=== PATIENT | female | born 1965 | race Caucasian/White ===

== ENCOUNTER 2021-08-02 10:25 | Outpatient (REF) | payer MEDICARE, MEDICAID, SELFPAY ==
[2021-08-02 12:17] LABS: MANUAL DIFF FLAG NO
[2021-08-02 12:26] LABS: Basophils Percent Auto 0.6 % (0-2); Eosinophils Percent Auto 0.6 % (0-4); Hematocrit 36.2 % (37-47); Hemoglobin 11.5 g/dl (12.0-16.0); Imm Gran Abs Auto 0.01 X10*3/uL (0.00-0.03); Imm Gran Pct Auto 0.2 % (0.0-0.4); Lymphocytes Absolute Auto 0.6 X10*3/uL (1.2-4.9); Mean Corpuscular HGB Conc 31.8 g/dl (31.0-35.0); Mean Corpuscular Hemoglobin 29.6 pg (27.0-33.0); Mean Corpuscular Volume 93.1 fL (80-98); Monocytes Absolute Auto 0.2 X10*3/uL (0.1-1.2); Monocytes Percent Auto 4.6 % (2-11); Neutrophils Absolute Auto 4.3 X10*3/uL (2.0-8.3); Platelet Count 183 X10*3/uL (160-400); Red Blood Count 3.89 X10*6/uL (4.20-5.50); White Blood Count 5.2 X10*3/uL (4.8-10.8)
[2021-08-02 12:33] LABS: D Dimer 202 NG/ML
[2021-08-02 12:38] LABS: Anion Gap 8 (12-20); Blood Urea Nitrogen 10 mg/dL (9-16); Calcium 9.2 mg/dL (8.4-10.2); Carbon Dioxide 29 mmol/L (22-29); Chloride 108 mmol/L (96-108); Estimated Glomerular Filt Rate > 60; Glucose Random 95 mg/dL (60-115); Potassium 4.4 mmol/L (3.3-5.1); Sodium 141 mmol/L (135-145)
[2021-08-02 13:30] LABS: Erythrocyte Sedimentation Rate 28 MM/HR (0-20)
[2021-08-05 11:31] LABS: SARS-COV-2 IgG Spike, Semi-Qnt 8.61 index (<1.00)
[2021-08-05 12:21] LABS: IgA 159 mg/dL (47-310); IgG 483 mg/dL (600-1640); IgM 156 mg/dL (50-300)
== END 2021-08-02 10:26 | disposition home or self-care (01) ==
LOC: HO.LAB 10:25
PROVIDERS: PCP Family Medicine; Visit Provider Hospitalist
DX: R06.00 Dyspnea, unspecified (principal); R06.02 Shortness of breath; M79.89 Other specified soft tissue disorders; M06.9 Rheumatoid arthritis, unspecified; J45.909 Unspecified asthma, uncomplicated; Z01.84 Encounter for antibody response examination
CPT/HCPCS: 36415; 80048; 82784; 82785; 85025; 85379; 85652; 86003; 86769; 99202

== ENCOUNTER 2021-08-16 10:49 | Outpatient (REF) | payer MEDICARE, MEDICAID, SELFPAY ==
--- NOTE | 2021-08-16 17:22 | PFT_ITS ---
INDICATION: Asthma. SPIROMETRY: The FEV1 to FVC 89% with an FEV1 of 2.87 L, which is 108% predicted, and an FVC of 3.23 L, which is 94% predicted. No significant response to bronchodilators noted. Maximum voluntary ventilation 134% predicted. LUNG VOLUMES: Total lung capacity 99% predicted with a diffusing capacity, DLCO 79% predicted. COMPARISONS: None. INTERPRETATION: No obstructive nor restrictive ventilatory defects identified. No significant response to bronchodilators noted. Normal maximum voluntary ventilation. Normal lung volumes. The patient does have a very mild diffusion impairment. Clinical correlation warranted. Stephon Rodriguez MD MR/MODL / [id number]
== END 2021-08-16 10:50 | disposition home or self-care (01) ==
LOC: HO.RESP 10:49
PROVIDERS: PCP Family Medicine; Visit Provider Hospitalist
DX: R06.00 Dyspnea, unspecified (principal); J45.909 Unspecified asthma, uncomplicated
CPT/HCPCS: 94060; 94727; 94729

== ENCOUNTER 2021-10-07 10:15 | Outpatient (REF) | payer MEDICARE, BC, MEDICAID, SELFPAY ==
--- NOTE | ~2021-10-07 | XR_ITS ---
EXAMINATION: XR CHEST CLINICAL INFORMATION: Dyspnea COMPARISON: 12/13/2015 TECHNIQUE: 2 views of the chest were obtained. FINDINGS: No significant abnormality is noted involving the heart, lungs, mediastinum, bony thorax or soft tissues. Surgical clips are noted in the gallbladder fossa. XR/XR chest 2V IMPRESSION: Unremarkable examination.
== END 2021-10-07 10:16 | disposition home or self-care (01) ==
LOC: HO.XRAY 10:15
PROVIDERS: PCP Family Medicine; Visit Provider Hospitalist
DX: J45.909 Unspecified asthma, uncomplicated (principal); M06.9 Rheumatoid arthritis, unspecified; M79.89 Other specified soft tissue disorders; R06.00 Dyspnea, unspecified; D80.1 Nonfamilial hypogammaglobulinemia; J01.90 Acute sinusitis, unspecified
CPT/HCPCS: 71046; 99212

== ENCOUNTER 2022-02-04 11:00 | Outpatient (REF) | payer MEDICARE, MEDICAID, SELFPAY ==
[2022-02-04 12:32] LABS: Anion Gap 9 (12-20); Blood Urea Nitrogen 9 mg/dL (9-16); Calcium 9.6 mg/dL (8.4-10.2); Carbon Dioxide 32 mmol/L (22-29); Chloride 106 mmol/L (96-108); Estimated Glomerular Filt Rate > 60; Glucose Random 96 mg/dL (60-115); Potassium 4.8 mmol/L (3.3-5.1); Sodium 142 mmol/L (135-145)
[2022-02-06 06:47] LABS: Immunoglobulin E 38 kU/L (<OR=114)
[2022-02-06 15:32] LABS: Immunoglobulin G Subclass 1 211 mg/dL (382-929); Immunoglobulin G Subclass 2 107 mg/dL (241-700); Immunoglobulin G Subclass 3 33 mg/dL (22-178); Immunoglobulin G Subclass 4 8.3 mg/dL (4-86); Immunoglobulin G Total 386 mg/dL (600-1640)
== END 2022-02-04 11:01 | disposition home or self-care (01) ==
LOC: HO.LAB 11:00
PROVIDERS: PCP Nurse Practitioner; Visit Provider Hospitalist
DX: D80.1 Nonfamilial hypogammaglobulinemia (principal)
CPT/HCPCS: 36415; 80048; 82784; 82785

== ENCOUNTER → 2022-02-05 10:52 | Outpatient (BNVA) | payer MEDICARE, MEDICAID, SELFPAY | PROVIDERS: PCP Nurse Practitioner; Visit Provider Hospitalist | DX: J45.40 Moderate persistent asthma, uncomplicated (principal); D80.1 Nonfamilial hypogammaglobulinemia; M06.9 Rheumatoid arthritis, unspecified; M79.89 Other specified soft tissue disorders; R06.00 Dyspnea, unspecified; U09.9 Post COVID-19 condition, unspecified | CPT/HCPCS: 99212 ==

== ENCOUNTER → 2022-05-27 13:46 | Outpatient (BNVA) | payer MEDICARE, MEDICAID, SELFPAY | PROVIDERS: PCP Nurse Practitioner; Visit Provider Hospitalist | DX: J45.40 Moderate persistent asthma, uncomplicated (principal); R06.00 Dyspnea, unspecified; U09.9 Post COVID-19 condition, unspecified; M79.89 Other specified soft tissue disorders; M06.9 Rheumatoid arthritis, unspecified; D80.1 Nonfamilial hypogammaglobulinemia | CPT/HCPCS: 99212 ==

== ENCOUNTER 2022-06-20 08:47 | Outpatient (REF) | payer MEDICARE, MEDICAID, SELFPAY | END 2022-06-20 08:48 | disposition home or self-care (01) | LOC: HO.MDS 08:47 | PROVIDERS: Visit Provider Hospitalist | DX: D80.1 Nonfamilial hypogammaglobulinemia (principal); E27.40 Unspecified adrenocortical insufficiency | CPT/HCPCS: 96365; 96366 ==

== ENCOUNTER 2022-07-18 08:51 | Outpatient (REF) | payer MEDICARE, MEDICAID, SELFPAY | END 2022-07-18 08:52 | disposition home or self-care (01) | LOC: HO.MDS 08:51 | PROVIDERS: Visit Provider Hospitalist | DX: D80.1 Nonfamilial hypogammaglobulinemia (principal) | CPT/HCPCS: 96365; 96366 ==

== ENCOUNTER 2022-08-15 08:58 | Outpatient (REF) | payer MEDICARE, MEDICAID, SELFPAY | END 2022-08-15 08:59 | disposition home or self-care (01) | LOC: HO.MDS 08:58 | PROVIDERS: Visit Provider Hospitalist | DX: D80.1 Nonfamilial hypogammaglobulinemia (principal) | CPT/HCPCS: 96365; 96366 ==

== ENCOUNTER 2022-09-12 08:55 | Outpatient (REF) | payer MEDICARE, MEDICAID, SELFPAY | END 2022-09-12 08:56 | disposition home or self-care (01) | LOC: HO.MDS 08:55 | PROVIDERS: Visit Provider Hospitalist | DX: D80.1 Nonfamilial hypogammaglobulinemia (principal) | CPT/HCPCS: 96365; 96366 ==

== ENCOUNTER 2022-09-23 14:29 | Outpatient (REF) | payer MEDICARE, MEDICAID, SELFPAY ==
--- NOTE | ~2022-09-23 | XR_ITS ---
EXAMINATION: XR CHEST CLINICAL INFORMATION: Nonfamilial hypogammaglobulinemia COMPARISON: Previous chest x-ray most recent September 2021 TECHNIQUE: 2 views of the chest were obtained. FINDINGS: The cardiac and mediastinal contours are stable. The lungs are clear. There is no pleural effusion or pneumothorax. There are degenerative changes of the thoracic spine and curvature to the right. XR/XR chest 2V IMPRESSION: No evidence for acute disease in the chest.
== END 2022-09-23 14:30 | disposition home or self-care (01) ==
LOC: HO.XRAY 14:29
PROVIDERS: PCP Nurse Practitioner; Visit Provider Hospitalist
DX: Z23 Encounter for immunization (principal); D80.1 Nonfamilial hypogammaglobulinemia
CPT/HCPCS: 71046; 90471; 90686; 99212

== ENCOUNTER 2022-10-10 09:13 | Outpatient (REF) | payer MEDICARE, MEDICAID, SELFPAY | END 2022-10-10 09:14 | disposition home or self-care (01) | LOC: HO.MDS 09:13 | PROVIDERS: Visit Provider Hospitalist | DX: D80.1 Nonfamilial hypogammaglobulinemia (principal) | CPT/HCPCS: 96365; 96366 ==

== ENCOUNTER 2022-11-11 08:58 | Outpatient (REF) | payer MEDICARE, MEDICAID, SELFPAY | END 2022-11-11 08:59 | disposition home or self-care (01) | LOC: HO.MDS 08:58 | PROVIDERS: Visit Provider Hospitalist | DX: D80.1 Nonfamilial hypogammaglobulinemia (principal) | CPT/HCPCS: 96365; 96366 ==

== ENCOUNTER 2022-11-25 14:09 | Outpatient (REF) | payer MEDICARE, MEDICAID, SELFPAY ==
--- NOTE | ~2022-11-25 | XR_ITS ---
EXAMINATION: XR BILATERAL FOOT, BILATERAL ANKLE, BILATERAL HAND AND WRIST CLINICAL INFORMATION: Rheumatoid arthritis. COMPARISON: None. TECHNIQUE: 3 views of each foot and 2 views of each ankle. 4 views of each hand and wrist. FINDINGS: LEFT FOOT: The visualized IP, MTP and intertarsal joint spaces are maintained normal. No visible acute fracture or dislocation seen. LEFT ANKLE: The ankle mortise and subtalar joints are normal. There is a moderate size retrocalcaneal enthesophyte. The soft tissues are normal. RIGHT ANKLE: The ankle mortise and subtalar joints are normal. No visible acute fracture, dislocation or subluxation seen. There is small retrocalcaneal enthesophyte. RIGHT FOOT: The IP and MTP joint spaces are normal. No bony erosive changes or loose bodies. There is small enthesophyte along the base of 4th metatarsal, likely chronic or old injury. LEFT HAND AND WRIST: The IP, MCP and interphalangeal joint spaces are normal. No periapical spurring or bony erosive changes seen. The soft tissues are normal. RIGHT HAND/WRIST: There is no visible acute fracture, dislocation or subluxation seen. No bony erosive changes. The soft tissues are normal. XR/XR foot RT min 3V IMPRESSION: Unremarkable bilateral ankle, bilateral foot, bilateral hand and wrist exam.
--- NOTE | ~2022-11-25 | XR_ITS ---
EXAMINATION: XR BILATERAL FOOT, BILATERAL ANKLE, BILATERAL HAND AND WRIST CLINICAL INFORMATION: Rheumatoid arthritis. COMPARISON: None. TECHNIQUE: 3 views of each foot and 2 views of each ankle. 4 views of each hand and wrist. FINDINGS: LEFT FOOT: The visualized IP, MTP and intertarsal joint spaces are maintained normal. No visible acute fracture or dislocation seen. LEFT ANKLE: The ankle mortise and subtalar joints are normal. There is a moderate size retrocalcaneal enthesophyte. The soft tissues are normal. RIGHT ANKLE: The ankle mortise and subtalar joints are normal. No visible acute fracture, dislocation or subluxation seen. There is small retrocalcaneal enthesophyte. RIGHT FOOT: The IP and MTP joint spaces are normal. No bony erosive changes or loose bodies. There is small enthesophyte along the base of 4th metatarsal, likely chronic or old injury. LEFT HAND AND WRIST: The IP, MCP and interphalangeal joint spaces are normal. No periapical spurring or bony erosive changes seen. The soft tissues are normal. RIGHT HAND/WRIST: There is no visible acute fracture, dislocation or subluxation seen. No bony erosive changes. The soft tissues are normal. XR/XR foot LT min 3V IMPRESSION: Unremarkable bilateral ankle, bilateral foot, bilateral hand and wrist exam.
--- NOTE | ~2022-11-25 | XR_ITS ---
EXAMINATION: XR BILATERAL FOOT, BILATERAL ANKLE, BILATERAL HAND AND WRIST CLINICAL INFORMATION: Rheumatoid arthritis. COMPARISON: None. TECHNIQUE: 3 views of each foot and 2 views of each ankle. 4 views of each hand and wrist. FINDINGS: LEFT FOOT: The visualized IP, MTP and intertarsal joint spaces are maintained normal. No visible acute fracture or dislocation seen. LEFT ANKLE: The ankle mortise and subtalar joints are normal. There is a moderate size retrocalcaneal enthesophyte. The soft tissues are normal. RIGHT ANKLE: The ankle mortise and subtalar joints are normal. No visible acute fracture, dislocation or subluxation seen. There is small retrocalcaneal enthesophyte. RIGHT FOOT: The IP and MTP joint spaces are normal. No bony erosive changes or loose bodies. There is small enthesophyte along the base of 4th metatarsal, likely chronic or old injury. LEFT HAND AND WRIST: The IP, MCP and interphalangeal joint spaces are normal. No periapical spurring or bony erosive changes seen. The soft tissues are normal. RIGHT HAND/WRIST: There is no visible acute fracture, dislocation or subluxation seen. No bony erosive changes. The soft tissues are normal. XR/XR hand wrist LT IMPRESSION: Unremarkable bilateral ankle, bilateral foot, bilateral hand and wrist exam.
--- NOTE | ~2022-11-25 | XR_ITS ---
EXAMINATION: XR BILATERAL FOOT, BILATERAL ANKLE, BILATERAL HAND AND WRIST CLINICAL INFORMATION: Rheumatoid arthritis. COMPARISON: None. TECHNIQUE: 3 views of each foot and 2 views of each ankle. 4 views of each hand and wrist. FINDINGS: LEFT FOOT: The visualized IP, MTP and intertarsal joint spaces are maintained normal. No visible acute fracture or dislocation seen. LEFT ANKLE: The ankle mortise and subtalar joints are normal. There is a moderate size retrocalcaneal enthesophyte. The soft tissues are normal. RIGHT ANKLE: The ankle mortise and subtalar joints are normal. No visible acute fracture, dislocation or subluxation seen. There is small retrocalcaneal enthesophyte. RIGHT FOOT: The IP and MTP joint spaces are normal. No bony erosive changes or loose bodies. There is small enthesophyte along the base of 4th metatarsal, likely chronic or old injury. LEFT HAND AND WRIST: The IP, MCP and interphalangeal joint spaces are normal. No periapical spurring or bony erosive changes seen. The soft tissues are normal. RIGHT HAND/WRIST: There is no visible acute fracture, dislocation or subluxation seen. No bony erosive changes. The soft tissues are normal. XR/XR hand wrist RT IMPRESSION: Unremarkable bilateral ankle, bilateral foot, bilateral hand and wrist exam.
--- NOTE | ~2022-11-25 | XR_ITS ---
EXAMINATION: XR BILATERAL FOOT, BILATERAL ANKLE, BILATERAL HAND AND WRIST CLINICAL INFORMATION: Rheumatoid arthritis. COMPARISON: None. TECHNIQUE: 3 views of each foot and 2 views of each ankle. 4 views of each hand and wrist. FINDINGS: LEFT FOOT: The visualized IP, MTP and intertarsal joint spaces are maintained normal. No visible acute fracture or dislocation seen. LEFT ANKLE: The ankle mortise and subtalar joints are normal. There is a moderate size retrocalcaneal enthesophyte. The soft tissues are normal. RIGHT ANKLE: The ankle mortise and subtalar joints are normal. No visible acute fracture, dislocation or subluxation seen. There is small retrocalcaneal enthesophyte. RIGHT FOOT: The IP and MTP joint spaces are normal. No bony erosive changes or loose bodies. There is small enthesophyte along the base of 4th metatarsal, likely chronic or old injury. LEFT HAND AND WRIST: The IP, MCP and interphalangeal joint spaces are normal. No periapical spurring or bony erosive changes seen. The soft tissues are normal. RIGHT HAND/WRIST: There is no visible acute fracture, dislocation or subluxation seen. No bony erosive changes. The soft tissues are normal. XR/XR ankle RT min 3V IMPRESSION: Unremarkable bilateral ankle, bilateral foot, bilateral hand and wrist exam.
--- NOTE | ~2022-11-25 | XR_ITS ---
EXAMINATION: XR BILATERAL FOOT, BILATERAL ANKLE, BILATERAL HAND AND WRIST CLINICAL INFORMATION: Rheumatoid arthritis. COMPARISON: None. TECHNIQUE: 3 views of each foot and 2 views of each ankle. 4 views of each hand and wrist. FINDINGS: LEFT FOOT: The visualized IP, MTP and intertarsal joint spaces are maintained normal. No visible acute fracture or dislocation seen. LEFT ANKLE: The ankle mortise and subtalar joints are normal. There is a moderate size retrocalcaneal enthesophyte. The soft tissues are normal. RIGHT ANKLE: The ankle mortise and subtalar joints are normal. No visible acute fracture, dislocation or subluxation seen. There is small retrocalcaneal enthesophyte. RIGHT FOOT: The IP and MTP joint spaces are normal. No bony erosive changes or loose bodies. There is small enthesophyte along the base of 4th metatarsal, likely chronic or old injury. LEFT HAND AND WRIST: The IP, MCP and interphalangeal joint spaces are normal. No periapical spurring or bony erosive changes seen. The soft tissues are normal. RIGHT HAND/WRIST: There is no visible acute fracture, dislocation or subluxation seen. No bony erosive changes. The soft tissues are normal. XR/XR ankle LT min 3V IMPRESSION: Unremarkable bilateral ankle, bilateral foot, bilateral hand and wrist exam.
[2022-11-25 15:43] LABS: MANUAL DIFF FLAG NO
[2022-11-25 15:59] LABS: Basophils Percent Auto 0.7 % (0-2); Eosinophils Percent Auto 0.3 % (0-4); Hemoglobin 12.3 g/dl (12.0-16.0); Imm Gran Abs Auto 0.02 X10*3/uL (0.00-0.03); Imm Gran Pct Auto 0.3 % (0.0-0.4); Lymphocytes Absolute Auto 0.7 X10*3/uL (1.2-4.9); Mean Corpuscular HGB Conc 32.4 g/dl (31.0-35.0); Mean Corpuscular Hemoglobin 29.2 pg (27.0-33.0); Mean Corpuscular Volume 90.3 fL (80.0-98.0); Mean Platelet Volume 9.5 fL (9.4-12.3); Monocytes Absolute Auto 0.3 X10*3/uL (0.1-1.2); Monocytes Percent Auto 4.7 % (2-11); Neutrophils Absolute Auto 4.9 x10*3/uL (2.0-8.3); Platelet Count 238 X10*3/uL (160-400); Red Blood Count 4.21 X10*6/uL (4.20-5.50); Red Cell Distribution Width 13.6 % (11.0-16.0)
[2022-11-25 16:25] LABS: Alanine Aminotransferase 32 U/L (0-31); Albumin Level 4.1 g/dL (3.5-5.0); Alkaline Phosphatase 55 U/L (39-117); Anion Gap 9 (12-20); Aspartate Amino Transferase 24 U/L (5-31); Bilirubin Total 0.5 mg/dL (0.0-1.0); Blood Urea Nitrogen 14 mg/dL (9-16); C Reactive Protein 0.58 mg/dL (< or = 0.50); Calcium 9.9 mg/dL (8.4-10.2); Carbon Dioxide 32 mmol/L (22-29); Chloride 104 mmol/L (96-108); Estimated Glomerular Filt Rate > 60; Glucose Random 95 mg/dL (60-115); Potassium 4.2 mmol/L (3.3-5.1); Sodium 141 mmol/L (135-145); Total Protein 7.1 g/dL (6.5-8.0)
[2022-11-25 16:39] LABS: Erythrocyte Sedimentation Rate 45 MM/HR (0-20)
[2022-11-26 05:15] LABS: HBS Num1 342.37 mIU/mL (0-7.99); HBc Num1 2.21 S/CO (0.00-0.79); Hepatitis A Antibody IgM 0.17 Index (0-0.79); Hepatitis B Surface Antigen Negative (Negative); ~HepC Num1 0.13 S/CO (0.00-0.79); ~Hepatitis A Antibody IgM Nonreactive (Nonreactive); ~Hepatitis B Surface Antibody REACTIVE (Nonreactive); ~Hepatitis C Antibody Nonreactive (Nonreactive)
[2022-11-26 05:57] LABS: HBc Num2 2.19 S/CO; Hepatitis B Core Antibody Reactive (Nonreactive)
[2022-11-27 13:33] LABS: TS Negative Control Passed; TS Panel A 0; TS Panel B 0; TS Positive Control Passed; TSpotTB Negative (Negative)
== END 2022-11-25 14:10 | disposition home or self-care (01) ==
LOC: HO.XRAY 14:09
PROVIDERS: PCP Nurse Practitioner; Visit Provider Student in an Organized Health Care Education/Training Program
DX: Z11.7 Encounter for testing for latent tuberculosis infection (principal); Z11.59 Encounter for screening for other viral diseases; M06.9 Rheumatoid arthritis, unspecified; G72.9 Myopathy, unspecified; M25.551 Pain in right hip; M25.552 Pain in left hip; E27.40 Unspecified adrenocortical insufficiency; Z72.89 Other problems related to lifestyle
CPT/HCPCS: 36415; 73110; 73130; 73610; 73630; 80053; 82550; 85025; 85652; 86140; 86481; 86704; 86706; 86709; 86803; 87340; 99202

== ENCOUNTER 2022-12-03 12:48 | Outpatient (REF) | payer MEDICARE, MEDICAID, SELFPAY ==
--- NOTE | ~2022-12-03 | MM_ITS ---
EXAMINATION: BONE DENSITOMETRY CLINICAL INDICATION: Long-term (current) use of systemic steroids. COMPARISON: Previous BD dated 12/01/2019 and baseline BD dated 09/03/2017. TECHNIQUE: Using a [employer] DXA System (software version: 13.1) manufactured by [employer], dual-energy x-ray absorptiometry was performed of the lumbar spine and left hip. The images are of good technical quality. Summary results are attached. FINDINGS: AP SPINE L1-L4: Current: BMD 1.000 g/cm2, Z-score -0.2, T-score -1.5, osteopenia, 4.0% decrease from previous, 0.8% decrease from baseline (<5% change is not significant). Prior: BMD 1.042 g/cm2. Baseline: BMD 1.008 g/cm2. LEFT FEMUR, NECK: Current: BMD 0.799 g/cm2, Z-score -0.4, T-score -1.7, osteopenia. Prior: BMD 0.777 g/cm2. Baseline: BMD 0.764 g/cm2. LEFT FEMUR, TOTAL: Current: BMD 0.786 g/cm2, Z-score -0.8, T-score -1.8, osteopenia, 3.2% decrease from previous, 10.9% decrease from baseline (<5% change is not significant). Prior: BMD 0.812 g/cm2. Baseline: BMD 0.882 g/cm2. IDENTIFIED RISK FACTORS: Rheumatoid arthritis. Chronic glucocorticoids. Menopause. HISTORY OF FRACTURE: None listed. MEDICATIONS: Calcium supplement and/or multivitamin. Vitamin D. MM/XR DEXA axial skeleton IMPRESSION: 1. DIAGNOSIS: Osteopenia based on the lowest T-score value of -1.8 in the femoral neck applying World Health Organization criteria. 2. 10-YEAR FRACTURE RISK PREDICTION, FRAX: Major osteoporotic fracture (clinical spine, forearm, hip or shoulder) 15.4%. Hip fracture 2.0%. 3. Treatment Recommendations: NOF guidelines recommend consideration for treatment in postmenopausal women and men age 50 and older presenting with the following: -A hip or vertebral (clinical or morphometric) fracture. -T-score less than or equal to -2.5 at the femoral neck or spine after appropriate evaluation to exclude secondary causes. -Low bone mass at the hip or spine and a 10-year fracture probability by FRAX of greater than or equal to 3% for hip fracture or greater than or equal to 20% for major osteoporotic fracture based on the [place] adapted WHO algorithm. 4. Other Recommendations: All treatment decisions require clinical judgment and consideration of individual patient factors, including patient preferences, comorbidities, previous drug use, risk factors not captured in the FRAX model (e.g. frailty, falls, vitamin D deficiency, increased bone turnover, interval significant decline in bone density) and possible under or overestimation of fracture risk by FRAX. Additional medical evaluation for secondary cause of low bone mineral density may be appropriate. FUTURE SCAN RECOMMENDATION: People with diagnosed cases of osteoporosis or at high risk for fracture should have regular bone mineral density tests. For patients eligible for Medicare, routine testing is allowed once every 2 years. The testing frequency can be increased to one year for patients who have rapidly progressing disease, those who are receiving or discontinuing medical therapy to restore bone mass, or have additional risk factors.
== END 2022-12-03 12:49 | disposition home or self-care (01) ==
LOC: HO.MAMMO 12:48
PROVIDERS: Visit Provider Student in an Organized Health Care Education/Training Program
DX: Z13.820 Encounter for screening for osteoporosis (principal); Z78.0 Asymptomatic menopausal state; Z79.52 Long term (current) use of systemic steroids
CPT/HCPCS: 77080

== ENCOUNTER 2022-12-08 09:01 | Outpatient (REF) | payer MEDICARE, MEDICAID, SELFPAY | END 2022-12-08 09:02 | disposition home or self-care (01) | LOC: HO.MDS 09:01 | PROVIDERS: Visit Provider Hospitalist | DX: D80.1 Nonfamilial hypogammaglobulinemia (principal) | CPT/HCPCS: 96365; 96366 ==

== ENCOUNTER 2023-01-02 15:00 | Outpatient (RCR) | payer MEDICARE, MEDICAID, SELFPAY ==
[2022-11-28 09:07] VITALS: BP 155/75; PULSE 73
--- NOTE | 2022-11-28 09:54 | MHC.PT.EP ---
[facility] [place] Office [place] Office [place] Office [address] [phone] F: [phone] F: [phone] F: [phone] F: [phone] Physical Therapy Plan of Care Date of Evaluation: Date of Surgery: NA Diagnosis: Pain in R hip Pain in L hip Assessment: Jenny is a 57 year old female who is referred to PT for pain in R hip and pain in L hip . She reports of having gradual onset of pain in B hips- L>R about 1 month back. She reports of having more pain in L hip compared to R. On PT examination she presented TTP over B GT, B glutes, B hip flexor and L SIJ, 5/10 pain with standing, walking and SL, decreased hip ROM and lumbar ROM, decreased B hip strength, altered and gait. She lives alone is independent with ADLS however has pain with them and takes frequent seated rest breaks. 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 She would benefit from skilled PT to address the aforementioned impairments and improve tolerance to functional activities. Frequency and Duration: The patient will be seen 2/week for 5 weeks Short Term Goals: 1. Pt will have 50% decrease in pain which will enable her to stand for 30 minutes without needing a break in 2 weeks. 2. Pt will be able to move her hip through all planes of motion without pain which will enable her to dress her lower body without pain in 3 weeks. 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 Pt will demonstrate an increase in muscle strength by 1 grade which will enable her to walk without pain in 5 weeks. 2. Pt will be independent with all HEPS for symptom management and maintenance following d/c in 5 weeks. Treatment Plan: Modalities to reduce pain, spasms and effusion. Manual therapy to restore motion and function. Therapeutic exercise to improve strength and flexibility. Neuromuscular re-education for posture and balance. Therapeutic activities to return to functional activities of daily living. Electronically signed by: Carrie Knight PT DPT Please sign and return to therapist. Thank you for your referral.
--- NOTE | 2023-01-02 15:16 | MHC.PT.DC ---
[facility] [place] Office [place] Office [place] Office [address] Avalos [address] [phone] F: [phone] F: [phone] F: [phone] F: [phone] Physical Therapy Discharge Report Diagnosis: Pain in R hip Pain in L hip Date of Surgery: NA Date of Evaluation: 11/28/22 Date of Discharge: 01/02/23 Treatments to Date: 9 Cancellations to Date: 0 No Shows to Date: Discharge Status: Achieved Goals Improved Function Independent with HEP Discharge Summary: Jenny has completed 9 PT visits and has made significant improvements. She has achieved all goals set for her. She is therefore being d/c from PT. Jenny was in agreement with the plan. Electronically signed by: Carrie Knight PT DPT Please sign and return to therapist. Thank you for your referral.
== END 2023-01-02 15:16 | disposition home or self-care (01) ==
LOC: HO.PT 15:00
PROVIDERS: Visit Provider Student in an Organized Health Care Education/Training Program
DX: M25.551 Pain in right hip (principal); M25.552 Pain in left hip
CPT/HCPCS: 97033; 97110; 97112; 97140; 97161

== ENCOUNTER 2023-01-05 09:06 | Outpatient (REF) | payer MEDICARE, MEDICAID, SELFPAY | END 2023-01-05 09:07 | disposition home or self-care (01) | LOC: HO.MDS 09:06 | PROVIDERS: Visit Provider Hospitalist | DX: D80.1 Nonfamilial hypogammaglobulinemia (principal) | CPT/HCPCS: 96365; 96366 ==

== ENCOUNTER 2023-02-02 08:22 | Outpatient (REF) | payer MEDICARE, MEDICAID, SELFPAY ==
[2023-02-02 08:33] LABS: MANUAL DIFF FLAG NO
[2023-02-02 09:16] LABS: Basophils Percent Auto 0.5 % (0-2); Eosinophils Absolute Auto 0.1 X10*3/uL (0.0-0.4); Eosinophils Percent Auto 1.1 % (0-4); Hemoglobin 11.2 g/dl (12.0-16.0); Imm Gran Abs Auto 0.05 X10*3/uL (0.00-0.03); Imm Gran Pct Auto 0.7 % (0.0-0.4); Lymphocytes Absolute Auto 0.9 X10*3/uL (1.2-4.9); Lymphocytes Percent Auto 11.5 % (20-40); Mean Corpuscular Hemoglobin 30.3 pg (27.0-33.0); Mean Corpuscular Volume 94.6 fL (80.0-98.0); Monocytes Absolute Auto 0.5 X10*3/uL (0.1-1.2); Neutrophils Absolute Auto 6.1 x10*3/uL (2.0-8.3); Neutrophils Percent Auto 80.2 % (45-73); Platelet Count 204 X10*3/uL (160-400); Red Cell Distribution Width 13.9 % (11.0-16.0); White Blood Count 7.5 X10*3/uL (4.8-10.8)
[2023-02-02 10:03] LABS: Erythrocyte Sedimentation Rate 28 MM/HR (0-20)
[2023-02-02 10:25] LABS: Alanine Aminotransferase 12 U/L (0-31); Albumin Level 3.7 g/dL (3.5-5.0); Alkaline Phosphatase 44 U/L (39-117); Anion Gap 9 (12-20); Aspartate Amino Transferase 17 U/L (5-31); Bilirubin Total 0.3 mg/dL (0.0-1.0); Blood Urea Nitrogen 10 mg/dL (9-16); Calcium 8.9 mg/dL (8.4-10.2); Carbon Dioxide 28 mmol/L (22-29); Chloride 108 mmol/L (96-108); Estimated Glomerular Filt Rate > 60; Glucose Random 79 mg/dL (60-115); Potassium 4.4 mmol/L (3.3-5.1); Sodium 141 mmol/L (135-145); Total Protein 5.9 g/dL (6.5-8.0)
== END 2023-02-02 08:23 | disposition home or self-care (01) ==
LOC: HO.LAB 08:22
PROVIDERS: PCP Nurse Practitioner; Visit Provider Student in an Organized Health Care Education/Training Program
DX: Z13.89 Encounter for screening for other disorder (principal)
CPT/HCPCS: 36415; 80053; 85025; 85652; 86140

== ENCOUNTER 2023-02-02 08:56 | Outpatient (REF) | payer MEDICARE, MEDICAID, SELFPAY | END 2023-02-02 08:57 | disposition home or self-care (01) | LOC: HO.MDS 08:56 | PROVIDERS: Visit Provider Hospitalist | DX: D80.1 Nonfamilial hypogammaglobulinemia (principal) | CPT/HCPCS: 36415; 80053; 85025; 85652; 86140; 96365; 96366 ==

== ENCOUNTER → 2023-02-03 14:31 | Outpatient (BNVA) | payer MEDICARE, MEDICAID, SELFPAY | PROVIDERS: PCP Nurse Practitioner; Visit Provider Student in an Organized Health Care Education/Training Program | DX: M06.09 Rheumatoid arthritis without rheumatoid factor, multiple sites (principal); E27.40 Unspecified adrenocortical insufficiency; Z13.820 Encounter for screening for osteoporosis | CPT/HCPCS: 99212 ==

== ENCOUNTER 2023-02-10 13:58 | Outpatient (REF) | payer MEDICARE, MEDICAID, SELFPAY ==
[2023-02-10 14:48] LABS: MANUAL DIFF FLAG NO
[2023-02-10 15:16] LABS: Basophils Percent Auto 0.8 % (0-2); Eosinophils Percent Auto 0.4 % (0-4); Hematocrit 34.7 % (37.0-47.0); Hemoglobin 11.3 g/dl (12.0-16.0); Imm Gran Abs Auto 0.01 X10*3/uL (0.00-0.03); Imm Gran Pct Auto 0.2 % (0.0-0.4); Lymphocytes Absolute Auto 0.7 X10*3/uL (1.2-4.9); Lymphocytes Percent Auto 15.6 % (20-40); Mean Corpuscular HGB Conc 32.6 g/dl (31.0-35.0); Mean Corpuscular Hemoglobin 29.6 pg (27.0-33.0); Mean Corpuscular Volume 90.8 fL (80.0-98.0); Mean Platelet Volume 9.8 fL (9.4-12.3); Monocytes Absolute Auto 0.3 X10*3/uL (0.1-1.2); Neutrophils Absolute Auto 3.6 x10*3/uL (2.0-8.3); Platelet Count 197 X10*3/uL (160-400); Red Blood Count 3.82 X10*6/uL (4.20-5.50); Red Cell Distribution Width 13.6 % (11.0-16.0); White Blood Count 4.7 X10*3/uL (4.8-10.8)
[2023-02-10 15:22] LABS: D Dimer High Sensitivity 189 NG/ML
[2023-02-10 15:48] LABS: Alanine Aminotransferase 16 U/L (0-31); Albumin Level 3.8 g/dL (3.5-5.0); Alkaline Phosphatase 48 U/L (39-117); Anion Gap 12 (12-20); Aspartate Amino Transferase 23 U/L (5-31); Bilirubin Direct < 0.2 mg/dL (0.0-0.5); Bilirubin Total 0.4 mg/dL (0.0-1.0); Blood Urea Nitrogen 13 mg/dL (9-16); Calcium 8.9 mg/dL (8.4-10.2); Carbon Dioxide 27 mmol/L (22-29); Chloride 106 mmol/L (96-108); Estimated Glomerular Filt Rate > 60; Glucose Random 99 mg/dL (60-115); Potassium 4.4 mmol/L (3.3-5.1); Sodium 141 mmol/L (135-145); Total Protein 6.7 g/dL (6.5-8.0)
[2023-02-10 15:58] LABS: Erythrocyte Sedimentation Rate 58 MM/HR (0-20)
[2023-02-10 16:14] LABS: Troponin-I High Sensitivity < 2.7 ng/L (<3.5-17.0)
== END 2023-02-10 13:59 | disposition home or self-care (01) ==
LOC: HO.LAB 13:58
PROVIDERS: PCP Nurse Practitioner; Visit Provider Hospitalist
DX: M06.9 Rheumatoid arthritis, unspecified (principal); D80.1 Nonfamilial hypogammaglobulinemia; R06.00 Dyspnea, unspecified; R07.81 Pleurodynia; M06.09 Rheumatoid arthritis without rheumatoid factor, multiple sites; J45.40 Moderate persistent asthma, uncomplicated; U09.9 Post COVID-19 condition, unspecified
CPT/HCPCS: 36415; 80048; 80076; 84484; 85025; 85379; 85652; 99212

== ENCOUNTER 2023-02-24 08:34 | Outpatient (REF) | payer MEDICARE, MEDICAID, SELFPAY ==
--- NOTE | ~2023-02-24 | CT_ITS ---
EXAMINATION: CT CHEST WITHOUT CONTRAST CLINICAL INFORMATION: Chest wall pain COMPARISON: Previous chest x-ray most recent September [address] February 2017 TECHNIQUE: Multidetector volumetric CT imaging of the chest was done. Axial MIP volume rendering provided. Sagittal and coronal reformatted images were obtained. This CT examination was performed using dose optimization techniques as appropriate, variously including the following: *Automated exposure control *Adjustment of mA and/or kV according to patient size (this includes techniques or standardized protocols for targeted exams where dose is matched to indication/reason for exam; i.e. 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 3 mm peripheral or subpleural right lower lobe nodule axial image 388 series 7. 2 mm peripheral or subpleural right middle lobe nodule adjacent to the major fissure axial 401 series 7. These are stable. There are new mild increased interstitial markings at the left lung base in the left upper and left lower lobe with interlobular septal thickening. MEDIASTINUM: The mediastinum is normal. There are small left lower cervical lymph nodes. There is a small subcentimeter right thyroid nodule in the lower pole. This is not appreciated on previous exam. Follow-up thyroid ultrasound considered if clinically indicated. CORONARY ARTERY CALCIFICATION: None visualized on this study. PLEURA: There is no pleural effusion. No pleural mass or thickening. AXILLA: No lymphadenopathy. UPPER ABDOMEN: The gallbladder has been removed. OSSEOUS STRUCTURES: Degenerative changes of the spine. No rib fracture, lesion or chest wall mass is seen. CT/CT chest wo IV con IMPRESSION: Stable small right pulmonary nodules from 2017. New increased interstitial markings with interlobular septal thickening at the left lung base. Newly appreciated 1 cm right thyroid nodule. Small lower cervical lymph nodes in the left neck. Follow-up thyroid ultrasound should be considered. Fleischner guidelines were followed.
== END 2023-02-24 08:35 | disposition home or self-care (01) ==
LOC: HO.CT 08:34
PROVIDERS: PCP Nurse Practitioner; Visit Provider Hospitalist
DX: R07.81 Pleurodynia (principal)
CPT/HCPCS: 71250

== ENCOUNTER 2023-03-02 09:33 | Outpatient (REF) | payer MEDICARE, MEDICAID, SELFPAY ==
[2023-03-03 13:08] LABS: Immunoglobulin G Subclass 1 387 mg/dL (382-929); Immunoglobulin G Subclass 2 301 mg/dL (241-700); Immunoglobulin G Subclass 3 35 mg/dL (22-178); Immunoglobulin G Subclass 4 10.4 mg/dL (4-86); Immunoglobulin G Total 771 mg/dL (600-1640)
== END 2023-03-02 09:34 | disposition home or self-care (01) ==
LOC: HO.LAB 09:33
PROVIDERS: PCP Nurse Practitioner; Visit Provider Internal Medicine Pulmonary Disease
DX: Z13.89 Encounter for screening for other disorder (principal)
CPT/HCPCS: 36415; 82784

== ENCOUNTER 2023-03-02 09:56 | Outpatient (REF) | payer MEDICARE, BC, MEDICAID, SELFPAY | END 2023-03-02 09:57 | disposition home or self-care (01) | LOC: HO.MDS 09:56 | PROVIDERS: Visit Provider Hospitalist | DX: D80.1 Nonfamilial hypogammaglobulinemia (principal) | CPT/HCPCS: 36415; 82784; 96365; 96366; 96375; J2920 ==

== ENCOUNTER 2023-04-07 11:53 | Outpatient (REF) | payer MEDICARE, MEDICAID, SELFPAY ==
[2023-04-07 12:04] LABS: MANUAL DIFF FLAG NO
[2023-04-07 12:18] LABS: Basophils Absolute Auto 0.1 X10*3/uL (0.0-0.2); Basophils Percent Auto 0.9 % (0-2); Eosinophils Absolute Auto 0.1 X10*3/uL (0.0-0.4); Eosinophils Percent Auto 0.7 % (0-4); Hematocrit 37.5 % (37.0-47.0); Hemoglobin 11.7 g/dl (12.0-16.0); Imm Gran Abs Auto 0.02 X10*3/uL (0.00-0.03); Imm Gran Pct Auto 0.3 % (0.0-0.4); Lymphocytes Absolute Auto 0.9 X10*3/uL (1.2-4.9); Lymphocytes Percent Auto 13.2 % (20-40); Mean Corpuscular HGB Conc 31.2 g/dl (31.0-35.0); Mean Corpuscular Hemoglobin 30.2 pg (27.0-33.0); Mean Corpuscular Volume 96.9 fL (80.0-98.0); Mean Platelet Volume 9.9 fL (9.4-12.3); Monocytes Absolute Auto 0.4 X10*3/uL (0.1-1.2); Monocytes Percent Auto 5.8 % (2-11); Neutrophils Absolute Auto 5.6 x10*3/uL (2.0-8.3); Neutrophils Percent Auto 79.1 % (45-73); Platelet Count 194 X10*3/uL (160-400); Red Blood Count 3.87 X10*6/uL (4.20-5.50)
[2023-04-07 12:53] LABS: Alanine Aminotransferase 16 U/L (0-31); Albumin Level 4.3 g/dL (3.5-5.0); Alkaline Phosphatase 54 U/L (39-117); Anion Gap 12 (12-20); Aspartate Amino Transferase 24 U/L (5-31); Bilirubin Total 0.6 mg/dL (0.0-1.0); Blood Urea Nitrogen 16 mg/dL (9-16); C Reactive Protein 0.85 mg/dL (< or = 0.50); Calcium 9.5 mg/dL (8.4-10.2); Carbon Dioxide 27 mmol/L (22-29); Chloride 105 mmol/L (96-108); Estimated Glomerular Filt Rate > 60; Glucose Random 98 mg/dL (60-115); Potassium 5.1 mmol/L (3.3-5.1); Sodium 139 mmol/L (135-145); Total Protein 6.9 g/dL (6.5-8.0)
[2023-04-07 13:27] LABS: Erythrocyte Sedimentation Rate 42 MM/HR (0-20)
== END 2023-04-07 11:54 | disposition home or self-care (01) ==
LOC: HO.LAB 11:53
PROVIDERS: PCP Nurse Practitioner; Visit Provider Student in an Organized Health Care Education/Training Program
DX: M06.9 Rheumatoid arthritis, unspecified (principal)
CPT/HCPCS: 36415; 80053; 85025; 85652; 86140

== ENCOUNTER 2023-04-10 08:38 | Outpatient (REF) | payer MEDICARE, BC, SELFPAY ==
--- NOTE | ~2023-04-10 | XR_ITS ---
Bilateral knees including AP weightbearing view. CLINICAL INDICATION: rheumatoid arthritis COMPARISON: None TECHNIQUE: AP weightbearing, sunrise, lateral, AP view bilaterally FINDINGS: On the right there is mild narrowing cough medial compartment of knee joint and marginal spurring at the lateral femoral condyle. There is mild narrowing cough medial compartment of patellofemoral joint and marginal spurring. On the left there is mild narrowing of medial compartment of left knee joint and minimal spurring of the medial femoral condyle. There is patellofemoral compartment spurring but no joint effusions. XR/XR knee standing BI IMPRESSION: Mild degenerative changes in both knee joints, right greater than left.
--- NOTE | ~2023-04-10 | XR_ITS ---
Bilateral knees including AP weightbearing view. CLINICAL INDICATION: rheumatoid arthritis COMPARISON: None TECHNIQUE: AP weightbearing, sunrise, lateral, AP view bilaterally FINDINGS: On the right there is mild narrowing cough medial compartment of knee joint and marginal spurring at the lateral femoral condyle. There is mild narrowing cough medial compartment of patellofemoral joint and marginal spurring. On the left there is mild narrowing of medial compartment of left knee joint and minimal spurring of the medial femoral condyle. There is patellofemoral compartment spurring but no joint effusions. XR/XR knee LT 3V IMPRESSION: Mild degenerative changes in both knee joints, right greater than left.
--- NOTE | ~2023-04-10 | XR_ITS ---
Bilateral knees including AP weightbearing view. CLINICAL INDICATION: rheumatoid arthritis COMPARISON: None TECHNIQUE: AP weightbearing, sunrise, lateral, AP view bilaterally FINDINGS: On the right there is mild narrowing cough medial compartment of knee joint and marginal spurring at the lateral femoral condyle. There is mild narrowing cough medial compartment of patellofemoral joint and marginal spurring. On the left there is mild narrowing of medial compartment of left knee joint and minimal spurring of the medial femoral condyle. There is patellofemoral compartment spurring but no joint effusions. XR/XR knee RT 3V IMPRESSION: Mild degenerative changes in both knee joints, right greater than left.
== END 2023-04-10 08:39 | disposition home or self-care (01) ==
LOC: HO.XRAY 08:38
PROVIDERS: PCP Nurse Practitioner; Visit Provider Student in an Organized Health Care Education/Training Program
DX: M17.0 Bilateral primary osteoarthritis of knee (principal); M06.09 Rheumatoid arthritis without rheumatoid factor, multiple sites; E27.40 Unspecified adrenocortical insufficiency
CPT/HCPCS: 73562; 73564; 73565; 99212

== ENCOUNTER 2023-04-27 10:06 | Outpatient (REF) | payer MEDICARE, SELFPAY | END 2023-04-27 10:07 | disposition home or self-care (01) | LOC: HO.MDS 10:06 | PROVIDERS: Visit Provider Hospitalist | DX: D80.1 Nonfamilial hypogammaglobulinemia (principal) | CPT/HCPCS: 96365; 96366; 96375; 99212; J2920 ==

== ENCOUNTER 2023-06-01 09:47 | Outpatient (REF) | payer MEDICARE, BC, SELFPAY | END 2023-06-01 09:48 | disposition home or self-care (01) | LOC: HO.MDS 09:47 | PROVIDERS: Visit Provider Hospitalist | DX: D80.1 Nonfamilial hypogammaglobulinemia (principal) | CPT/HCPCS: 96365; 96366; J2920 ==

== ENCOUNTER 2023-06-29 09:59 | Outpatient (REF) | payer MEDICARE, BC, SELFPAY | END 2023-06-29 10:00 | disposition home or self-care (01) | LOC: HO.MDS 09:59 | PROVIDERS: Visit Provider Hospitalist | DX: D80.1 Nonfamilial hypogammaglobulinemia (principal) | CPT/HCPCS: 96365; 96375; J2920 ==

== ENCOUNTER 2023-07-29 10:40 | Outpatient (REF) | payer MEDICARE, BC, SELFPAY ==
[2023-07-29 10:54] LABS: MANUAL DIFF FLAG NO
[2023-07-29 11:21] LABS: Basophils Percent Auto 1.1 % (0-2); Eosinophils Absolute Auto 0.1 X10*3/uL (0.0-0.4); Eosinophils Percent Auto 1.6 % (0-4); Hemoglobin 12.2 g/dl (12.0-16.0); Imm Gran Abs Auto 0.01 X10*3/uL (0.00-0.03); Imm Gran Pct Auto 0.3 % (0.0-0.4); Lymphocytes Absolute Auto 0.6 X10*3/uL (1.2-4.9); Lymphocytes Percent Auto 17.5 % (20-40); Mean Corpuscular Volume 93.9 fL (80.0-98.0); Mean Platelet Volume 9.7 fL (9.4-12.3); Monocytes Absolute Auto 0.3 X10*3/uL (0.1-1.2); Monocytes Percent Auto 8.2 % (2-11); Neutrophils Absolute Auto 2.6 x10*3/uL (2.0-8.3); Neutrophils Percent Auto 71.3 % (45-73); Platelet Count 169 X10*3/uL (160-400); Red Blood Count 3.94 X10*6/uL (4.20-5.50); Red Cell Distribution Width 13.2 % (11.0-16.0); White Blood Count 3.7 X10*3/uL (4.8-10.8)
[2023-07-29 12:37] LABS: Erythrocyte Sedimentation Rate 4 MM/HR (0-20)
[2023-07-29 13:17] LABS: Alanine Aminotransferase 18 U/L (0-31); Albumin Level 4.1 g/dL (3.5-5.0); Alkaline Phosphatase 40 U/L (39-117); Anion Gap 10 (12-20); Aspartate Amino Transferase 22 U/L (5-31); Bilirubin Total 0.6 mg/dL (0.0-1.0); Blood Urea Nitrogen 10 mg/dL (9-16); C Reactive Protein < 0.04 mg/dL (< or = 0.50); Calcium 9.1 mg/dL (8.4-10.2); Carbon Dioxide 27 mmol/L (22-29); Chloride 110 mmol/L (96-108); Estimated Glomerular Filt Rate > 60; Glucose Random 90 mg/dL (60-115); Potassium 3.9 mmol/L (3.3-5.1); Sodium 143 mmol/L (135-145); Total Protein 6.6 g/dL (6.5-8.0)
== END 2023-07-29 10:41 | disposition home or self-care (01) ==
LOC: HO.LAB 10:40
PROVIDERS: Visit Provider Student in an Organized Health Care Education/Training Program
DX: M06.9 Rheumatoid arthritis, unspecified (principal)
CPT/HCPCS: 36415; 80053; 85025; 85652; 86140; 99212

== ENCOUNTER 2023-07-29 15:32 | Outpatient (AMB) | payer MEDICARE, BC, SELFPAY ==
--- NOTE | 2023-07-29 15:39 | A.OFFVIS_ITS ---
Intake Vital Signs 07/29/23 15:40 Height 5 ft 4 in Weight 160 lb 4.417 oz BMI 27.5 BP 127/70 Blood Pressure Location Rt brachial Position Sitting Pulse 90 Pulse Source Pulse Oximeter Temp 97.3 F Temp Source Skin Pulse Oximetry (%) 98 Oxygen Delivery Method Room Air Intake Visit Reasons: RA Intake Note: Patient here to follow up on RA. 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: No Accompanied by: Self / Same As Patient Allergies No Known Allergies Allergy (Verified 07/29/23 15:44) Medication List - Last Reconciled 07/29/23 by Jazz Pierson MD alprazolam 0.5 mg PO BID PRN amlodipine 5 mg PO DAILY ehcsaqnflv-[id number]-ljnrjgmkqo 160-9-4.8 mcg/actuation (Breztri Aerosphere) 2 inhalations inhalation BID 30 days calcium carbonate-vitamin D3 500 mg-5 mcg (200 unit) (Calcium 500 + D) 1 tab PO DAILY celecoxib 200 mg PO DAILY dicyclomine 10 mg PO TID fluticasone propion-salmeterol 115-21 mcg/actuation (Advair HFA) 2 puffs inhalation BID fluticasone propionate 50 mcg/actuation sprays intranasal hydroxychloroquine 300 mg (1.5 x 200 mg) PO DAILY immun glob G(IgG)-pro-IgA 0-50 10 % (Privigen) 40 grams IV Q4W 4 weeks leflunomide 20 mg PO DAILY lisinopril 10 mg PO DAILY magnesium oxide 400 mg PO DAILY montelukast 10 mg PO DAILY multivitamin 1 tab PO DAILY omeprazole 20 mg PO DAILY prednisone 4 mg PO selegiline (Emsam) 1 patch topical DAILY tocilizumab (Actemra ACTPen) 162 mg (0.9 mL) subcut Q2W vitamin B complex (B Complex-Vitamin B12 tablet) 1 tab PO DAILY HPI HPI Comments History of Present Illness Details 58-year-old female with seronegative RA returns for follow-up. On Arava 20 mg daily, hydroxychloroquine 300 mg daily and started Actemra 3 months ago. Patient states that her joint pain is much better overall. States that she has been having some muscle pain, worse with activity. She believes is related to doing a lot of work around the house also has some bilateral hip pain, worse on the left knee. He developed a transverse wound on her right 3rd MCP 6 weeks ago and it is not healing. Initial history: This is a 57-year-old female with a past medical history of hypertension, depression, seronegative RA, asthma who presents for evaluation of rheumatoid arthritis. Patient states she has history of seronegative RA. 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 Patient stated she was diagnosed with seronegative RA in 2013. She was initially started on methotrexate which was switched to subQ, hydroxychloroquine was added in 2014. Methotrexate was stopped and leflunomide was started. Patient stated she had been doing relatively well on leflunomide 20 mg daily hydroxychloroquine 200 mg alternating with 400 mg and Celebrex for a few years. She failed Enbrel and Humira. Kevzara caused mouth sores. After patient had a COVID infection in 2020 she has been having worsening asthma/bronchitis symptoms. She received multiple courses of prednisone without significant improvement. About 6 months ago she was started on IVIG by her manager shell due to low IgG levels. She stated that her pulmonary complaints are better overall. She also stated that throughout this urine have she has been having worsening RA flares. Some of them are improved with prednisone. Today she has pain in both hands, both wrists, elbows, feet, ankles and the outside of the left hip. She states she has been more short of breath over the last year and have compared to before. 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 GERD (gastroesophageal reflux disease) Hypertension, essential, benign FRANCHESCA (generalized anxiety disorder) MDD (major depressive disorder) Osteopenia (~2017) Hypogammaglobulinemia Dyspnea Limb swelling Rheumatoid arthritis Asthma Surgical History History of bladder surgery (~2008) History of cholecystectomy (~1992) Family History Father Myocardial infarction, Onset Age: 55 Brother Sudden cardiac , Onset Age: 53 Maternal Aunt Colon cancer Mother HTN (hypertension) Prediabetes Osteoarthritis cervical spine Osteopenia Maternal Grandmother Osteoarthritis cervical spine Osteopenia Osteoporosis Paternal Grandmother Osteoporosis Social History Household Members: Spouse and Other Household Members Other:: self Alcohol intake: current Alcohol intake frequency: holidays/special occasions only Patient Tobacco Use Status: Never used Tobacco Current occupational status: disabled Review of Systems Musc Details: Muscle pain Skin/Breast Reports wounds Physical Exam Vital Signs: Last Vital Signs Temp 97.3 F 07/29/23 15:40 Pulse 90 07/29/23 15:40 BP 127/70 07/29/23 15:40 Pulse Ox 98 07/29/23 15:40 Oxygen Delivery Method Room Air 07/29/23 15:40 BMI result Body Mass Index 27.5 Const General: cooperative, healthy appearing, comfortable and no acute distress Nutritional Appearance: average body habitus Orientation/consciousness: patient oriented x3 Limitations: no limitations HEENT Head: Yes normocephalic and Yes atraumatic Resp Effort & Inspection: normal respiratory effort and able to speak in complete sentences Auscultation: clear to auscultation bilaterally Cardio Rate: regular rate Rhythm: regular rhythm GI Inspection: No distended Palpation (GI): Soft to palpation and nontender Skin Other: Transverse wound just proximal to her right 3rd MCP, not infected, incompletely healed Neuro General: patient oriented x3 Extrem Other: Mild osteoarthritic changes of both hands Right wrist tenderness to palpation Left wrist tenderness to palpation Few tender MCPs and PIP is bilaterally without swelling Positive MCP squeeze test right hand No D IP tenderness today Faint erythematous rash on her knuckles No ankle tenderness or swelling today No MTP tenderness today Bilateral trochanteric bursa area tenderness, worse on the left Negative Stevo's test bilaterally Results Reviewed Results Reviewed: CLINICAL INDICATION: Rheumatoid arthritis, chronic steroid use. K COMPARISON: Baseline BD dated 09/03/2017. TECHNIQUE: Dual-energy x-ray absorptiometry was performed of the lumbar spine and left hip. The images are of good technical quality. Summary results are attached. FINDINGS: AP SPINE L1-L4: Current: BMD 1.042 g/cm2, Z-score -0.1, T-score -1.2, osteopenia, 3.4% increase from baseline (<5% change is not significant). Baseline: BMD 1.008 g/cm2. LEFT FEMUR, NECK: Current: BMD 0.777 g/cm2, Z-score -0.7, T-score -1.9, osteopenia. Baseline: BMD 0.764 g/cm2. LEFT FEMUR, TOTAL: Current: BMD 0.812 g/cm2, Z-score -0.8, T-score -1.6, osteopenia, 7.9% decrease from baseline (<5% change is not significant). Baseline: BMD 0.882 g/cm2. IDENTIFIED RISK FACTORS: Menopause, glucocorticoids (chronic). HISTORY OF FRACTURE: None listed. PAGE 1 Signed Report (CONTINUED) Name: IAN WALLACE Address: [address] [facility] [id number] : 1965 Age: 54 Doctor: VU MCCARTY MD Location: [facility] Exam Date: 12/01/2019 Time: 833 Acc# [id number] K MEDICATIONS: Calcium, vitamin D. IMPRESSION: 1. DIAGNOSIS: Osteopenia based on the [facility] T-score value of -1.9 in the femoral neck applying World Health Organization criteria. 2. 10-YEAR FRACTURE RISK PREDICTION, FRA X: Major osteoporotic fracture (clinical spine, forearm, hip or shoulde r) 14.3%. Hip fracture 2.1%. RECOMMENDATIONS: 1. Treatment Recommendations: NOF guidel sanya recommend consideration for treatment in postmenopausal women and men age 50 and older presenting with the following: -A hip or vertebral (clinical or morphom etric) fracture. -T-score less than or equal to -2.5 at t he femoral neck or spine after appropriate evaluation to exclude secondary causes. -Low bone mass at the hip or spine and a 10-year fracture probability by FRAX of greater than or equal to 3% for hip fracture or greater than or equal to 20% for major osteoporotic fracture based on the [place] adapted WHO algorithm. 2. Other Recommendations: All treatment decisions require clinical judgment and consideration of individual patient factors, including patient preferences, comorbidities, previous drug use, risk factors not captured in the FRAX model (e.g. frailty, falls, vitamin D deficiency, increased bone turnover, interval significant decline in bone density) and possible under or overestimation of fracture risk by FRAX. 3. Future Scan Recommendation: People wi th diagnosed cases of osteoporosis or at high risk for fracture should have regular bone mineral density tests. For patients eligible for Medicare, routine testing is allowed once every 2 years. The testing frequency can be K increased to one year for patients who have rapidly progressing PAGE 2 Signed Report (CONTINUED) Name: IAN WALLACE Address: [address] [facility] [address] : 1965 Age: 54 Doctor: VU MCCARTY MD Location: [facility] Exam Date: 12/01/2019 Time: 833 [facility]# [id number] disease, those who are receiving or discontinuing medical therapy to restore bone mass, or have additional risk factors. REPORT SIGNED IN OTHER VENDOR SYSTEM 12/01/2019 Reported By: CAMI CAO M.D. CLINICAL INDICATION:Rheumatoid arthritis, chronic steroid use. COMPARISON:Baseline BD dated 09/03/2017. TECHNIQUE:Dual-energy x-ray absorptiometry was performed of the lumbar spine andleft hip. The images are of good technical quality. Summary results areattached. FINDINGS:AP SPINE L1-L4:Current: BMD 1.042 g/cm2, Z-score -0.1, T-score -1.2, osteopenia, 3.4%increase from baseline (<5% change is not significant).Baseline: BMD 1.008 g/cm2. LEFT FEMUR, NECK:Current: BMD 0.777 g/cm2, Z-score -0.7, T-score -1.9, ost eopenia.Baseline: BMD 0.764 g/cm2. LEFT FEMUR, TOTAL:Current: BMD 0.812 g/cm2, Z-score -0.8, T-score -1.6, osteopenia, 7.9%decrease from baseline (<5% change is not significant).Baseline: BMD 0.882 g/cm2. IDENTIFIED RISK FACTORS:Menopause, glucocorticoids (chronic). HISTORY OF FRACTURE:None listed. PAGE 1 Signed Report (CONTINUED) : TRUONG WALLACEddress: [address] [facility] [id number]: DOB: 1965 Age: 54Doctor: VU MCCARTY MDLocation: 2HDExam Date: 12/01/2019 [id number] MEDICATIONS:Calcium, vitamin D. IMPRESSION:1. DIAGNOSIS: Osteopenia based on the lowest T-score value of -1.9 inthe femoral neck applying World Health Organization criteria. 2. 10-YEAR FRACTURE RISK PREDICTION, FRA X: Major osteoporotic fracture(clinical spine, forearm, hip or shoulder) 14.3%. Hip fracture 2.1%. RECOMMENDATIONS:1. Treatment Recommendations: NOF guidelines recommend consideration for treatment in postmenopausal women and men age 50 and olderpresenting with the following:-A hip or vertebral (clinical or morphometric) fracture.-T-score less than or equal to -2.5 at the femoral neck or spine afterappropriate evaluation to exclude secondary causes.-Low bone mass at the hip or spine and a 10-year fracture probabilityby FRAX of greater than or equal to 3% for hip fracture or greater thanor equal to 20% for major osteoporotic fracture based on the [place] adaptedWHO algorithm. 2. Other Recommendations: All treatment decisions require clinicaljudgment and consideration of individual patient factors, includingpatient preferences, comorbidities, previous drug use, risk factors notcaptured in the FRAX model (e.g. frailty, falls, vitamin D deficiency,increased bone turnover, interval significant decline in bone density)and possible under or overestimation of fracture risk by FRAX. 3. Future Scan Recommendation: People wi th diagnosed cases ofosteoporosis or at high risk for fracture should have regular bonemineral density tests. For patients eligible for Medicare, routinetesting is allowed once every 2 years. The testing frequency can beincreased to one year for patients who have rapidly progressing PAGE 2 Signed Report (CONTINUED) : TRUONG WALLACEddress: [address] [facility] [id number]: DOB: 1965 Age: 54Doctor: VU MCCARTY MDLocation: 2HDExam Date: 12/01/2019 Time: 0834 disease, those who are receiving or discontinuing medical therapy torestore bone mass, or have additional risk factors. REPORT SIGNED IN OTHER VENDOR SYSTEM 12/01/2019 Reported By: CAMI CAO M.D. Assessment & Plan Assessment & Plan (1) Rheumatoid arthritis: Comment: Seronegative diagnosed in 2012 Methotrexate started in 2013 oral and subcu failed. HCQ started in 2014 Leflunomide for many years Failed Enbrel and Humira Kevzara cause mouth ulcers SSZ added 01/29 ineffective. DC 05/01 Actemra started 04/2023 effective Code(s): M06.9 - Rheumatoid arthritis, unspecified Qualifiers: Rheumatoid arthritis location: multiple sites Rheumatoid factor presence: without rheumatoid factor Qualified Code(s): M06.09 - Rheumatoid arthritis without rheumatoid factor, multiple sites Plan: This is a 58-year-old female with seronegative RA who returns for follow-up. On hydroxychloroquine 300 mg daily, Arava 20 mg daily and Actemra started 3-4 months ago. Doing much better on Actemra. Inflammatory markers normal. Continue Actemra 162 mg every other week, Arava 20 mg daily, hydroxychloroquine 300 mg daily Will start prior authorization for Actemra Labs before next visit in 3 months (2) Screening for osteoporosis: Code(s): Z13.820 - Encounter for screening for osteoporosis Plan: DEXA 2022 shows osteopenia with T-score -1.5 at the L-spine have and-1.8 left hip. FRAX score 15.4% for major osteoporosis fracture and 2% for hip fracture. Will repeat DEXA in 2-3 years (3) Adrenal insufficiency: Code(s): E27.40 - Unspecified adrenocortical insufficiency Plan: Has developed to adrenal insufficiency secondary to long-term systemic steroid use. Per sales coordinator patient is to be on 3 mg of prednisone and unlesss higher doses are required due to active RA or lung disease. Continue 4 mg daily (4) Greater trochanteric pain syndrome of both lower extremities: Code(s): M25.551 - Pain in right hip; M25.552 - Pain in left hip Plan: PT was not helpful, I gave patient a printout of home exercises to do. Can consider steroid injection next visit if symptoms are progressing (5) Open wound, hand: Code(s): S61.409A - Unspecified open wound of unspecified hand, initial encounter Qualifiers: Encounter type: initial encounter Open wound type: unspecified Foreign body presence: without foreign body Laterality: right Qualified Code(s): S61.401A - Unspecified open wound of right hand, initial encounter Plan: Open transverse wound just proximal to the right 3rd MCP. Has not fully healed for 6 weeks. It is not infected on exam. It might need a stitch. Will refer patient to Hand surgery (6) Encounter for monitoring leflunomide therapy: Code(s): Z51.81 - Encounter for therapeutic drug level monitoring; Z79.899 - Other terminal operator (current) drug therapy Plan: Monitor safety labs Inform patient that given her fair skin complexion as well as her mother's fam thea history of skin cancer she should get a yearly skin exam by Dermatology (7) Long-term use of hydroxychloroquine: Code(s): Z79.899 - Other terminal operator (current) drug therapy Plan: Discussed risk of retinopathy with hydroxychloroquine, advised patient to follow-up with ophthalmology Plan I spent 46 minutes reviewing patient's chart, evaluating patient, ordering diagnostic workup, counseling patient and documenting in the chart Orders: Orders Complete Blood Count Auto Diff 3 Months M06.9 - Rheumatoid arthritis, unspecified C Reactive Protein 3 Months M06.9 - Rheumatoid arthritis, unspecified Erythrocyte Sedimentation Rate 3 Months M06.9 - Rheumatoid arthritis, unspecifie d Comprehensive Met. Panel 3 Months M06.9 - Rheumatoid arthritis, unspecified Referrals Hand Surgery Referral S61.409A - Unspecified open wound of unspecified hand, initial encounter Coding Level of Care Code Est Pt Level 5 (43607) Diagnoses Rheumatoid arthritis of multiple sites with negative rheumatoid factor M06.09 Rheumatoid arthritis location: multiple sites Rheumatoid factor presence: without rheumatoid factor Screening for osteoporosis Z13.820 Adrenal insufficiency E27.40 Greater trochanteric pain syndrome of both lower extremities M25.551; M25.552 Open wound of right hand without foreign body, unspecified wound type, initial encounter S61.401A Encounter type: initial encounter Open wound type: unspecified Foreign body presence: without foreign body Laterality: right Encounter for monitoring leflunomide therapy Z51.81; Z79.899 Long-term use of hydroxychloroquine Z79.899
[2023-07-29 15:40] VITALS: BP 127/70; PULSE 90; TEMP 36.3; O2SAT 98; BMI 27.5
== END 2023-07-29 16:15 | disposition home or self-care (01) ==
PROVIDERS: PCP Nurse Practitioner; Visit Provider Student in an Organized Health Care Education/Training Program
DX: M06.09 Rheumatoid arthritis without rheumatoid factor, multiple sites (principal); Z13.820 Encounter for screening for osteoporosis; E27.40 Unspecified adrenocortical insufficiency; M25.551 Pain in right hip; M25.552 Pain in left hip; S61.401A Unspecified open wound of right hand, initial encounter; Z51.81 Encounter for therapeutic drug level monitoring; Z79.899 Other long term (current) drug therapy
CPT/HCPCS: 99215

== ENCOUNTER 2023-07-30 15:23 | Outpatient (AMB) | payer MEDICARE, BC, SELFPAY ==
--- NOTE | 2023-07-30 15:27 | MHC.OFFVIS ---
Intake Vital Signs 07/30/23 15:28 Height 5 ft 4 in Weight 157 lb BMI 26.9 Pulse 84 Pulse Source Pulse Oximeter Pulse Oximetry (%) 99 Oxygen Delivery Method Room Air Intake Visit Reasons: Asthma Sample Room Supervisor Required: No Allergies No Known Allergies Allergy (Verified 07/30/23 15:29) HPI HPI Comments History of Present Illness Details The patient is a 58 y/o woman with known RA, asthma and hypogammaglobulinemia. She states that back in November after getting her IVIG infusion she started developing chest discomfort. She was thinking about going to the ER but his symptoms subsided so therefore she went home. She has also been noticing increasing blood pressures. She has also been noticing that the effusions have not been as effective at lease do not appear to be working longer than a few weeks and then she starts feeling under the weather again. Will need to check her IgG trough as the levels may be still allowing we may need to augmented therapy. We talked about pre treating her with Solu-Medrol and also Benadryl and Tylenol in order to minimize her adverse effects to the infusion and also we can also slow down the rate of infusion. This should help. Hopefully can also decrease her blood pressures. The patient also has been having chest discomfort. She also complains of leg swelling and pain. Will go ahead and recheck blood work including a D-dimer to assess for the risk of thrombotic disease. The IgG infusions will increase her risk of thrombotic disease. If the patient's D-dimer is negative she will still need a CT scan to further address her chest discomfort that is ongoing. In regards of her asthma therapy patient has been doing well but now with her increased symptoms will go ahead and optimize her therapy and switch her from the Advair HFA to breztri inhaler. 04/27/2023 the patient is here for a pulmonary follow-up visit. She recently received her IVIG after missing a months dose. The patient became significantly hypertensive while getting the infusion at a slow rate. She was pretreated but it was after the fact. The patient after the infusion does not feel quite right. She feels groggy and hard to maintain. The patient likely just has to recover after the infusion. Also, I did recommend she talk to her primary care doctor regarding her blood pressure that was elevated even prior to the infusion which was of approximately 160 systolic prior to the infusion and went up to 180 to 190 systolic during the infusion. She did receive hydralazine IV x1 with good response. The patient does have a very low IgG level and I do believe that the IVIG infusions are important for her so therefore will continue with therapy. She does feel better on the restroom inhaler. She does have some hoarseness though. She is rinsing well. No evidence of any thrush on my examination. 07/30/2023 the patient is here for a pulmonary follow-up visit. Overall she is doing well she is doing better with the infusions she is not having the issue with the blood pressure any longer. She is also getting premedicated. Will go ahead and repeat her blood work including the IgG trough and renal function to make sure that she is adequately being treated for the hypogammaglobulinemia. She her arthritis seems to be in better control. We did review the CT scan that she had back in February 2023 where he had said that her pulmonary nodules are stable and also said that there was some slight worsening of the interstitial changes on the left base. Although we looked at I closed together and she does have some areas of scarring but it does not look like if is anything related to underlying interstitial lung disease. Likely some residual scarring after having bad COVID a year and half ago. Another issue that she has is that she has been tachycardic. Once she was very short of breath and she looked at her smart watch and it documented that heart was 140. She will be seeing her new primary care doctor soon I did encourage her to talk about that with them. However, will be reasonable for her to get an EKG if she has not done already when she comes in for the blood work. She will receive her Prevnar 20 vaccine today. Otherwise she will continue getting her other shots at the pharmacy. [facility] Medical History Pulmonary nodules Hypertension Pleuritic chest pain [id number] syndrome GERD (gastroesophageal reflux disease) Hypertension, essential, benign FRANCHESCA (generalized anxiety disorder) MDD (major depressive disorder) Osteopenia (~2016) Hypogammaglobulinemia Dyspnea Limb swelling Rheumatoid arthritis Asthma Surgical History History of bladder surgery (~2008) History of cholecystectomy (~1992) Family History Father Myocardial infarction, Onset Age: 55 Brother Sudden cardiac , Onset Age: 53 Maternal Aunt Colon cancer Mother HTN (hypertension) Prediabetes Osteoarthritis cervical spine Osteopenia Maternal Grandmother Osteoarthritis cervical spine Osteopenia Osteoporosis Paternal Grandmother Osteoporosis Social History Household Members: Spouse and Other Household Members Other:: self Alcohol intake: current Alcohol intake frequency: holidays/special occasions only Patient Tobacco Use Status: Never used Tobacco Current occupational status: disabled Review of Systems Const Reports difficulty sleeping, Denies fatigue, Denies headache(s), Denies malaise and Denies night sweats ENT Denies change in voice, Denies headache(s), Denies lip swelling, Denies mouth pain, Reports nasal congestion, Reports nasal discharge and Denies tongue swelling Card Denies chest pain and Denies dyspnea on exertion Resp Reports cough and Denies dyspnea on exertion GI Denies abdominal pain Musc Reports as per HPI, Reports myalgias, Reports arthralgias and Reports joint swelling Neuro Denies Neuro-related abnormal movements and Denies headache(s) Psych Denies no additional complaints Endo Denies fatigue Feliberto/Lymph Denies easy bleeding and Denies lymphadenopathy Aller/Immun Denies lip swelling and Denies tongue swelling Physical Exam Vital Signs: Last Vital Signs Pulse 84 07/30/23 15:28 Pulse Ox 99 07/30/23 15:28 Oxygen Delivery Method Room Air 07/30/23 15:28 BMI result Body Mass Index 26.9 Neck Neck: Yes normal visual inspection, Yes full ROM and Yes no lymphadenopathy Chest Chest palpation & inspection: normal inspection of the chest Resp Auscultation: clear to auscultation bilaterally, no wheezes and diminished lung sounds Cardio Rate: regular rate Rhythm: regular rhythm Heart sounds: S1 normal heart sound present and S2 normal heart sound present GI Palpation (GI): Soft to palpation and nontender Auscultation: normal bowel sounds Skin General skin exam: rashes and/or lesions noted Extrem General: Yes no clubbing, cyanosis or edema Immunizations pneumoc 20-judith conj-dip cr(PF) 0.5 mL IM syringe Performing Provider: Stephon Rodriguez MD Performing Location: [facility] Administered by: Jody Renteria LPN on 07/30/23 16:03 Dose Route Admin Location Dispensed Lot Number Expiration Date NDC Stripe Marker 0.5 mL IM Right Deltoid 0.5 mL [id number] 09/08/24 4400-7452-60 [employer] VIS Given Date VIS Provided VIS Publication Date 07/30/23 Single Vaccine 21 Eligibility Eligibility Date Funding Source Not [facility] Eligible 07/30/23 Private Assessment & Plan Assessment & Plan (1) Dyspnea: Code(s): R06.00 - Dyspnea, unspecified Qualifiers: Dyspnea type: dyspnea on exertion Qualified Code(s): R06.09 - Other forms of dyspnea (2) Rheumatoid arthritis: Comment: Seronegative diagnosed in 2012 Methotrexate started in 2013 oral and subcu failed. HCQ started in 2014 Leflunomide for many years Failed Enbrel and Humira Kevzara cause mouth ulcers SSZ added 01/29 ineffective. DC 05/01 Actemra started 04/2023 effective Code(s): M06.9 - Rheumatoid arthritis, unspecified Qualifiers: Rheumatoid arthritis location: multiple sites Rheumatoid factor presence: without rheumatoid factor Qualified Code(s): M06.09 - Rheumatoid arthritis without rheumatoid factor, multiple sites (3) Asthma: Code(s): J45.909 - Unspecified asthma, uncomplicated Qualifiers: Asthma complication type: uncomplicated Asthma persistence: persistent Asthma severity: moderate Qualified Code(s): J45.40 - Moderate persistent asthma, uncomplicated (4) Hypogammaglobulinemia: Code(s): D80.1 - Nonfamilial hypogammaglobulinemia (5) Pulmonary nodules: Code(s): R91.8 - Other nonspecific abnormal finding of lung field Plan continue Breztri Continue AARON as needed continue IvIg 40gms IV q4 weeks Will need pre treatment prior to IVIG Bloodwork requested to be done just prior to her IVIG to assess through CT chest 02/2024 Follow-up in 6 months Orders: Orders ECG 12 lead EKG Today J44.9 - Chronic obstructive pulmonary disease, unspecified Pneumococcal 20 Immunization Today J45.909 - Unspecified asthma, uncomplicated Basic Metabolic Panel Today D80.1 - Nonfamilial hypogammaglobulinemia Immunoglobulin G Subclasses Today D80.1 - Nonfamilial hypogammaglobulinemia Coding Level of Care Code Est Pt Level 4 (43427) Diagnoses Dyspnea on exertion R06.09 Dyspnea type: dyspnea on exertion Rheumatoid arthritis of multiple sites with negative rheumatoid factor M06.09 Rheumatoid arthritis location: multiple sites Rheumatoid factor presence: without rheumatoid factor Moderate persistent asthma without complication J45.40 Asthma complication type: uncomplicated Asthma persistence: persistent Asthma severity: moderate Hypogammaglobulinemia D80.1 Pulmonary nodules R91.8 Time Spent (min) 18
[2023-07-30 15:28] VITALS: PULSE 84; O2SAT 99; BMI 26.9
== END 2023-07-30 15:52 | disposition home or self-care (01) ==
PROVIDERS: PCP Nurse Practitioner; Visit Provider Hospitalist
DX: R06.09 Other forms of dyspnea (principal); M06.09 Rheumatoid arthritis without rheumatoid factor, multiple sites; J45.40 Moderate persistent asthma, uncomplicated; D80.1 Nonfamilial hypogammaglobulinemia; R91.8 Other nonspecific abnormal finding of lung field
CPT/HCPCS: 99214

== ENCOUNTER → 2023-07-30 15:23 | Outpatient (BNVA) | payer MEDICARE, BC, SELFPAY | PROVIDERS: PCP Nurse Practitioner; Visit Provider Hospitalist | DX: Z23 Encounter for immunization (principal); J45.40 Moderate persistent asthma, uncomplicated; M06.09 Rheumatoid arthritis without rheumatoid factor, multiple sites; D80.1 Nonfamilial hypogammaglobulinemia; R91.8 Other nonspecific abnormal finding of lung field; R06.09 Other forms of dyspnea | CPT/HCPCS: 90471; 90677; 99212 ==

== ENCOUNTER 2023-08-28 09:16 | Outpatient (REF) | payer MEDICARE, BC, SELFPAY ==
[2023-08-28 10:31] LABS: Anion Gap 13 (12-20); Blood Urea Nitrogen 12 mg/dL (9-16); Calcium 9.4 mg/dL (8.4-10.2); Carbon Dioxide 26 mmol/L (22-29); Chloride 106 mmol/L (96-108); Estimated Glomerular Filt Rate > 60; Glucose Random 100 mg/dL (60-115); Potassium 4.3 mmol/L (3.3-5.1); Sodium 141 mmol/L (135-145)
[2023-08-31 13:18] LABS: Immunoglobulin G Subclass 1 325 mg/dL (382-929); Immunoglobulin G Subclass 2 242 mg/dL (241-700); Immunoglobulin G Subclass 3 29 mg/dL (22-178); Immunoglobulin G Subclass 4 7.3 mg/dL (4-86); Immunoglobulin G Total 574 mg/dL (600-1640)
== END 2023-08-28 09:17 | disposition home or self-care (01) ==
LOC: HO.LAB 09:16
PROVIDERS: Visit Provider Hospitalist
DX: Z13.89 Encounter for screening for other disorder (principal)
CPT/HCPCS: 36415; 80048; 82784

== ENCOUNTER 2023-08-28 09:38 | Outpatient (REF) | payer MEDICARE, BC, SELFPAY | END 2023-08-28 09:39 | disposition home or self-care (01) | LOC: HO.MDS 09:38 | PROVIDERS: Visit Provider Hospitalist | DX: D80.1 Nonfamilial hypogammaglobulinemia (principal) | CPT/HCPCS: 36415; 80048; 82784; 96365; 96366; 96375; J2920 ==

== ENCOUNTER 2023-09-25 09:34 | Outpatient (REF) | payer BC, MEDICARE, SELFPAY ==
[2023-09-25 09:58] LABS: MANUAL DIFF FLAG NO
[2023-09-25 10:22] LABS: Basophils Percent Auto 0.8 % (0-2); Eosinophils Percent Auto 0.5 % (0-4); Hematocrit 34.5 % (37.0-47.0); Hemoglobin 11.5 g/dl (12.0-16.0); Imm Gran Abs Auto 0.01 X10*3/uL (0.00-0.03); Imm Gran Pct Auto 0.3 % (0.0-0.4); Lymphocytes Absolute Auto 0.7 X10*3/uL (1.2-4.9); Lymphocytes Percent Auto 17.7 % (20-40); Mean Corpuscular HGB Conc 33.3 g/dl (31.0-35.0); Mean Corpuscular Hemoglobin 31.7 pg (27.0-33.0); Mean Platelet Volume 10.1 fL (9.4-12.3); Monocytes Absolute Auto 0.4 X10*3/uL (0.1-1.2); Monocytes Percent Auto 9.3 % (2-11); Neutrophils Absolute Auto 2.7 x10*3/uL (2.0-8.3); Neutrophils Percent Auto 71.4 % (45-73); Platelet Count 169 X10*3/uL (160-400); Red Blood Count 3.63 X10*6/uL (4.20-5.50); Red Cell Distribution Width 12.5 % (11.0-16.0); White Blood Count 3.8 X10*3/uL (4.8-10.8)
[2023-09-25 10:55] LABS: Alanine Aminotransferase 17 U/L (0-31); Albumin Level 4.1 g/dL (3.5-5.0); Alkaline Phosphatase 38 U/L (39-117); Anion Gap 9 (12-20); Aspartate Amino Transferase 22 U/L (5-31); Bilirubin Total 0.4 mg/dL (0.0-1.0); Blood Urea Nitrogen 9 mg/dL (9-16); C Reactive Protein < 0.10 mg/dL (< or = 0.50); Carbon Dioxide 28 mmol/L (22-29); Chloride 108 mmol/L (96-108); Estimated Glomerular Filt Rate > 60; Glucose Random 108 mg/dL (60-115); Potassium 4.1 mmol/L (3.3-5.1); Sodium 141 mmol/L (135-145); Total Protein 6.3 g/dL (6.5-8.0)
[2023-09-25 11:00] LABS: Erythrocyte Sedimentation Rate 5 MM/HR (0-20)
== END 2023-09-25 09:35 | disposition home or self-care (01) ==
LOC: HO.LAB 09:34
PROVIDERS: Visit Provider Student in an Organized Health Care Education/Training Program
DX: M06.9 Rheumatoid arthritis, unspecified (principal)
CPT/HCPCS: 36415; 80053; 85025; 85652; 86140

== ENCOUNTER 2023-09-25 10:00 | Outpatient (REF) | payer BC, MEDICARE, SELFPAY | END 2023-09-25 10:01 | disposition home or self-care (01) | LOC: HO.MDS 10:00 | PROVIDERS: Visit Provider Hospitalist | DX: D80.1 Nonfamilial hypogammaglobulinemia (principal) | CPT/HCPCS: 96365; 96366; 96375; J2920 ==

== ENCOUNTER 2023-10-26 09:58 | Outpatient (REF) | payer BC, MEDICARE, SELFPAY | END 2023-10-26 09:59 | disposition home or self-care (01) | LOC: HO.MDS 09:58 | PROVIDERS: PCP Nurse Practitioner; Visit Provider Hospitalist | DX: D80.1 Nonfamilial hypogammaglobulinemia (principal) | CPT/HCPCS: 96365; 96366; 96375; J2920 ==

== ENCOUNTER 2023-10-27 13:41 | Outpatient (AMB) | payer BC, MEDICARE, MEDICAID, SELFPAY ==
--- NOTE | 2023-10-27 13:44 | A.OFFVIS_ITS ---
Intake Vital Signs 10/27/23 13:50 Height 5 ft 4 in Weight 151 lb 0.266 oz BMI 25.9 BP 152/74 H Blood Pressure Location Rt brachial Position Sitting Pulse 94 Pulse Source Pulse Oximeter Pulse Oximetry (%) 99 Oxygen Delivery Method Room Air Intake Visit Reasons: RA Intake Note: Pt last seen 07/29/23, presents today for follow up and test results. She declined referral to wound care as her wound healed. She continues with Actemra, Arava and Plaquenil. Mica Paster Required: No Accompanied by: Self / Same As Patient Allergies No Known Allergies Allergy (Verified 10/27/23 13:51) Medication List - Last Reconciled 10/27/23 by Jazz Pierson MD alprazolam 0.5 mg PO BID PRN amlodipine 5 mg PO DAILY oumggnrhzx-jpxlqcvw-wamicssbqa 160-9-4.8 mcg/actuation (Breztri Aerosphere) 2 inhalations inhalation BID 30 days calcium carbonate-vitamin D3 500 mg-5 mcg (200 unit) (Calcium 500 + D) 1 tab PO DAILY celecoxib 200 mg PO DAILY dicyclomine 10 mg PO TID fluticasone propion-salmeterol 115-21 mcg/actuation (Advair HFA) 2 puffs inhalation BID fluticasone propionate 50 mcg/actuation sprays intranasal hydroxychloroquine 300 mg (1.5 x 200 mg) PO DAILY NS immun glob G(IgG)-pro-IgA 0-50 10 % (Privigen) 40 grams IV Q4W 4 weeks leflunomide 20 mg PO DAILY lisinopril 10 mg PO DAILY magnesium oxide 400 mg PO DAILY montelukast 10 mg PO DAILY multivitamin 1 tab PO DAILY omeprazole 20 mg PO DAILY prednisone 4 mg PO selegiline (Emsam) 1 patch topical DAILY tocilizumab (Actemra ACTPen) 162 mg (0.9 mL) subcut Q2W vitamin B complex (B Complex-Vitamin B12 tablet) 1 tab PO DAILY HPI HPI Comments History of Present Illness Details 58-year-old female with seronegative RA returns for follow-up. On Arava 20 mg daily, hydroxychloroquine 300 mg daily and Actemra every other week. She is doing well overall, she has not been doing much housework over the past few weeks as her daughter in just had a baby who was in the NICU and she was going back and forth to the hospital. She states that she gets tingling and numbness the outer aspect of her right thigh and right leg. She keeps getting wounds on the dorsal aspect of her hands. She believes it is from dry skin. Continues on IVIG every 4 weeks prescribed by Initial history: This is a 57-year-old female with a past medical history of hypertension, depression, seronegative RA, asthma who presents for evaluation of rheumatoid arthritis. Patient states she has history of seronegative RA. 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 Patient stated she was diagnosed with seronegative RA in 2013. She was initially started on methotrexate which was switched to subQ, hydroxychloroquine was added in 2014. Methotrexate was stopped and leflunomide was started. Patient stated she had been doing relatively well on leflunomide 20 mg daily hydroxychloroquine 200 mg alternating with 400 mg and Celebrex for a few years. She failed Enbrel and Humira. Kevzara caused mouth sores. After patient had a COVID infection in 2020 she has been having worsening asthma/bronchitis symptoms. She received multiple courses of prednisone without significant improvement. About 6 months ago she was started on IVIG by her metal fabricating inspector due to low IgG levels. She stated that her pulmonary complaints are better overall. She also stated that throughout this urine have she has been having worsening RA flares. Some of them are improved with prednisone. Today she has pain in both hands, both wrists, elbows, feet, ankles and the outside of the left hip. She states she has been more short of breath over the last year and have compared to before. [facility] Medical History Pulmonary nodules Hypertension Pleuritic chest pain [id number] syndrome GERD (gastroesophageal reflux disease) Hypertension, essential, benign FRANCHESCA (generalized anxiety disorder) MDD (major depressive disorder) Osteopenia (~2016) Hypogammaglobulinemia Dyspnea Limb swelling Rheumatoid arthritis Asthma Surgical History History of bladder surgery (~2008) History of cholecystectomy (~1992) Family History Father Myocardial infarction, Onset Age: 55 Brother Sudden cardiac , Onset Age: 53 Maternal Aunt Colon cancer Mother HTN (hypertension) Prediabetes Osteoarthritis cervical spine Osteopenia Maternal Grandmother Osteoarthritis cervical spine Osteopenia Osteoporosis Paternal Grandmother Osteoporosis Social History Household Members: Spouse and Other Household Members Other:: self Alcohol intake: current Alcohol intake frequency: holidays/special occasions only Patient Tobacco Use Status: Never used Tobacco Current occupational status: disabled Review of Systems Musc Reports numbness and Reports tingling Skin/Breast Reports wounds Neuro Reports numbness, Reports tingling and Reports paresthesias Physical Exam Const General: cooperative, healthy appearing, comfortable and no acute distress Nutritional Appearance: average body habitus Orientation/consciousness: patient oriented x3 Limitations: no limitations HEENT Head: Yes normocephalic and Yes atraumatic Resp Effort & Inspection: normal respiratory effort and able to speak in complete sen tences Auscultation: clear to auscultation bilaterally Cardio Rate: regular rate Rhythm: regular rhythm GI Inspection: No distended Palpation (GI): Soft to palpation and nontender Skin Other: Transverse wound on the dorsal aspect of the right 4th finger. Not infected. Similar wounds on bilateral 3rd MCPs have healed Neuro Other: Abnormal light touch sensation on the lateral aspect of right leg Normal position sense General: patient oriented x3 Extrem Other: Mild osteoarthritic changes of both hands No tender joints today No ankle tenderness or swelling today No MTP tenderness today Bilateral trochanteric bursa area tenderness, worse on the left Negative Stevo's test bilaterally Results Reviewed Results Reviewed: CLINICAL INDICATION: Rheumatoid arthritis, chronic steroid use. K K Assessment & Plan Assessment & Plan (1) Rheumatoid arthritis: Comment: Seronegative diagnosed in 2012 Methotrexate started in 2013 oral and subcu failed. HCQ started in 2014 Leflunomide for many years Failed Enbrel and Humira Kevzara cause mouth ulcers SSZ added 01/29 ineffective. DC 05/01 Actemra started 04/2023 effective Code(s): M06.9 - Rheumatoid arthritis, unspecified Qualifiers: Rheumatoid arthritis location: multiple sites Rheumatoid factor presence: without rheumatoid factor Qualified Code(s): M06.09 - Rheumatoid arthritis without rheumatoid factor, multiple sites Plan: This is a 58-year-old female with seronegative RA who returns for follow-up. On hydroxychloroquine 300 mg daily, Arava 20 mg daily and SQ Actemra every other week. Doing well overall with no active synovitis Continue Actemra 162 mg every other week, Arava 20 mg daily, hydroxychloroquine 300 mg daily Labs before next visit in 3 months (2) Screening for osteoporosis: Code(s): Z13.820 - Encounter for screening for osteoporosis Plan: DEXA 2022 shows osteopenia with T-score -1.5 at the L-spine have and-1.8 left hip. FRAX score 15.4% for major osteoporosis fracture and 2% for hip fracture. Will repeat DEXA in 2-3 years (3) Adrenal insufficiency: Code(s): E27.40 - Unspecified adrenocortical insufficiency Plan: Has developed to adrenal insufficiency secondary to long-term systemic steroid use. Per sales and marketing agent patient is to be on 3 mg of prednisone and unlesss higher doses are required due to active RA or lung disease. Continue 4 mg daily (4) Greater trochanteric pain syndrome of both lower extremities: Code(s): M25.551 - Pain in right hip; M25.552 - Pain in left hip Plan: Spontaneously improved with reduced physical activity. (5) Encounter for monitoring leflunomide therapy: Code(s): Z51.81 - Encounter for therapeutic drug level monitoring; Z79.899 - Other oil heaterman (current) drug therapy Plan: Monitor safety labs Inform patient that given her fair skin complexion as well as her mother's family history of skin cancer she should get a yearly skin exam by Dermatology (6) Long-term use of hydroxychloroquine: Code(s): Z79.899 - Other oil heaterman (current) drug therapy Plan: Discussed risk of retinopathy with hydroxychloroquine, advised patient to follow-up with ophthalmology. Patient stated that she just relocated to [place] and she will find a new Cable Braider (7) Immunization counseling: Code(s): Z71.85 - Encounter for immunization safety counseling Plan: Patient received Pneumovax and flu vaccine for this season. She does not want to get the COVID booster as she does not feel well with it (8) Right leg paresthesias: Code(s): R20.2 - Paresthesia of skin Plan: Will check bilateral lower extremity EMG/NCV Plan I spent 46 minutes reviewing patient's chart, evaluating patient, ordering diagnostic workup, counseling patient and documenting in the chart Orders: Orders Complete Blood Count Auto Diff 3 Months Z51.81 - Encounter for therapeutic drug level monitoring, Z79.899 - Other oil heaterman (current) drug therapy Comprehensive Met. Panel 3 Months Z51.81 - Encounter for therapeutic drug level monitoring, Z79.899 - Other group home (current) drug therapy C Reactive Protein 3 Months Z51.81 - Encounter for therapeutic drug level monitoring, Z79.899 - Other group home (current) drug therapy Erythrocyte Sedimentation Rate 3 Months Z51.81 - Encounter for therapeutic drug level monitoring, Z79.899 - Other group home (current) drug therapy NE electromyogram (EMG) Today R20.0 - Anesthesia of skin Coding Level of Care Code Est Pt Level 5 (62854) Diagnoses Rheumatoid arthritis of multiple sites with negative rheumatoid factor M06.09 Rheumatoid arthritis location: multiple sites Rheumatoid factor presence: without rheumatoid factor Screening for osteoporosis Z13.820 Adrenal insufficiency E27.40 Greater trochanteric pain syndrome of both lower extremities M25.551; M25.552 Encounter for monitoring leflunomide therapy Z51.81; Z79.899 Long-term use of hydroxychloroquine Z79.899 Immunization counseling Z71.85 Right leg paresthesias R20.2
[2023-10-27 13:50] VITALS: BP 152/74; PULSE 94; O2SAT 99; BMI 25.9
== END 2023-10-27 14:05 | disposition home or self-care (01) ==
PROVIDERS: PCP Nurse Practitioner; Visit Provider Student in an Organized Health Care Education/Training Program
DX: M06.09 Rheumatoid arthritis without rheumatoid factor, multiple sites (principal); Z13.820 Encounter for screening for osteoporosis; E27.40 Unspecified adrenocortical insufficiency; M25.551 Pain in right hip; M25.552 Pain in left hip; Z51.81 Encounter for therapeutic drug level monitoring; Z79.899 Other long term (current) drug therapy; Z71.85 Encounter for immunization safety counseling; R20.2 Paresthesia of skin
CPT/HCPCS: 99215

== ENCOUNTER → 2023-10-27 13:41 | Outpatient (BNVA) | payer BC, MEDICARE, SELFPAY | PROVIDERS: PCP Nurse Practitioner; Visit Provider Student in an Organized Health Care Education/Training Program | DX: Z13.820 Encounter for screening for osteoporosis (principal); M06.09 Rheumatoid arthritis without rheumatoid factor, multiple sites; M25.551 Pain in right hip; M25.552 Pain in left hip; E27.40 Unspecified adrenocortical insufficiency; R20.2 Paresthesia of skin; Z51.81 Encounter for therapeutic drug level monitoring; Z79.899 Other long term (current) drug therapy; Z71.85 Encounter for immunization safety counseling | CPT/HCPCS: 99212 ==

== ENCOUNTER 2023-11-19 09:57 | Outpatient (REF) | payer BC, MEDICARE, SELFPAY ==
--- NOTE | 2023-11-19 10:01 | EMG_ITS ---
Bilateral tibial and peroneal motor studies were performed. Bilateral superficial peroneal and sural sensory studies were performed. Median and lateral plantar sensory studies were performed, tibial H reflexes were obtained, and needle examination was performed. IMPRESSION: Moderately severe axonal peripheral neuropathy, mostly affecting sensory nerves. MD JULISSA Mtz/WILDAL / [id number]
== END 2023-11-19 09:58 | disposition home or self-care (01) ==
LOC: HO.NEURO 09:57
PROVIDERS: PCP Nurse Practitioner; Visit Provider Student in an Organized Health Care Education/Training Program
DX: R20.0 Anesthesia of skin (principal)
CPT/HCPCS: 95886; 95913

== ENCOUNTER 2023-11-23 10:01 | Outpatient (REF) | payer BC, MEDICARE, SELFPAY | END 2023-11-23 10:02 | disposition home or self-care (01) | LOC: HO.MDS 10:01 | PROVIDERS: Visit Provider Hospitalist | DX: D80.1 Nonfamilial hypogammaglobulinemia (principal) | CPT/HCPCS: 96365; 96366; 96375; J2920 ==

== ENCOUNTER 2023-12-21 09:25 | Outpatient (REF) | payer BC, MEDICARE, SELFPAY | END 2023-12-21 09:26 | disposition home or self-care (01) | LOC: HO.MDS 09:25 | PROVIDERS: Visit Provider Hospitalist | DX: D80.1 Nonfamilial hypogammaglobulinemia (principal) ==

== ENCOUNTER 2023-12-30 10:54 | Outpatient (REF) | payer BC, MEDICARE, SELFPAY | END 2023-12-30 10:55 | disposition home or self-care (01) | LOC: HO.MDS 10:54 | PROVIDERS: Visit Provider Hospitalist | DX: D80.1 Nonfamilial hypogammaglobulinemia (principal) | CPT/HCPCS: 96365; 96366; 96375; J2920 ==

== ENCOUNTER 2024-01-04 10:45 | Outpatient (REF) | payer BC, MEDICARE, SELFPAY ==
--- NOTE | ~2024-01-04 | CT_ITS ---
EXAMINATION: CT CHEST WITHOUT CONTRAST CLINICAL INFORMATION: Pulmonary nodules COMPARISON: CT scan of chest on 02/24/2023 TECHNIQUE: Multidetector volumetric CT imaging of the chest was done. Axial MIP volume rendering provided. Sagittal and coronal reformatted images were obtained. This CT examination was performed using dose optimization techniques as appropriate, variously including the following: *Automated exposure control *Adjustment of mA and/or kV according to patient size (this includes techniques or standardized protocols for targeted exams where dose is matched to indication/reason for exam; i.e. extremities or head) *Use of iterative reconstruction technique DLP: 139 mGy-cm FINDINGS: LUNGS: The visualized lung parenchyma is clear. There is interval resolution of interstitial densities in left upper and lower lobes. -Nodule #1 (Series 7, image 225): 2.3 mm solid nodule, anterior lateral corner of right lower lobe superior segment, previously 2 mm. -Nodule #2 (Series 7, image 341): 3.2 mm solid nodule, lateral pleural border of right lower lobe lateral basal segment, previously 3 mm. -Nodule #3 (Series 7, image 359): 2.3 mm solid nodule, posterior border of right middle lobe lateral segment attached to right major fissure, previously 2 mm. PLEURA: No pleural effusion or pneumothorax is seen. PERICARDIUM: No pericardial effusion is seen. MEDIASTINUM AND SEBASTIÁN: Inadequate evaluation of the mediastinal and hilar lymph nodes due to absence of IV contrast filling the surrounding blood vessels. TRACHEOBRONCHIAL TREE: Trachea and bilateral mainstem bronchi are patent. THORACIC AORTA: The thoracic aorta is normal in size with a few focal atherosclerotic calcifications. CORONARY ARTERY CALCIFICATIONS: None PULMONARY ARTERIES: The main pulmonary arteries appear to be normal in size. CHEST WALL AND LOWER NECK: The subcutaneous and muscular chest wall are intact with no focal lesion. Persistent right lower thyroid pole hypodense nodule measuring 0.9 cm in size is seen, series 3 image #5. BONES: Moderate posterior T6-T7 posterior syndesmophytes are seen impinging the thoracic spinal canal. No fracture or dislocation. No focal bone lesion diagnostic of metastatic disease could be seen in the thorax. VISUALIZED UPPER ABDOMEN: Bilateral adrenal glands are not enlarged. Surgical clips are seen in the gallbladder fossa. A punctate calculus is seen in lateral mid left renal calyx without caliectasis. CT/CT chest wo IV con IMPRESSION: 1. Interval resolution of interstitial densities in the left upper and lower lobes. 2. Multiple pulmonary nodules in the right lung are stable. 3. Right lower pole thyroid nodule is stable. 4. Unchanged Moderate posterior syndesmophytes at the T6-T7 level impinging the thoracic spinal canal. 5. Unchanged status post cholecystectomy and interval appearance of punctate mid left renal nonobstructive calculus. According to the UPDATED 2017 Fleischner Society recommendations, the advised follow-up imaging for solid nodules <6 mm in the middle/lower lobes is no routine follow up. . Incidental thyroid nodules up to 1.5 cm in diameter in patients 35 years of age or older are statistically overwhelmingly not clinically significant and no followup imaging recommended. Reference: J Am Hamida Radiol 2015 b; 12(2): 143-50. Fleischner guidelines were followed.
== END 2024-01-04 10:46 | disposition home or self-care (01) ==
LOC: HO.CT 10:45
PROVIDERS: PCP Nurse Practitioner; Visit Provider Hospitalist
DX: R91.8 Other nonspecific abnormal finding of lung field (principal)
CPT/HCPCS: 71250

== ENCOUNTER 2024-01-12 09:38 | Outpatient (AMB) | payer BC, MEDICARE, SELFPAY ==
[2024-01-12 09:48] VITALS: BP 128/70; PULSE 89; O2SAT 99; BMI 24.9
--- NOTE | 2024-01-12 09:48 | A.OFFVIS_ITS ---
Intake Vital Signs 01/12/24 09:48 Height 5 ft 4 in Weight 145 lb BMI 24.9 BP 128/70 Blood Pressure Location Lt brachial Position Sitting Pulse 89 Pulse Source Pulse Oximeter Pulse Oximetry (%) 99 Oxygen Delivery Method Room Air Intake Visit Reasons: asthma Ob Gyn Physician Assistant Required: No Allergies No Known Allergies Allergy (Verified 01/12/24 09:50) HPI HPI Comments History of Present Illness Details The patient is a 58 y/o woman with known RA, asthma and hypogammaglobulinemia. She states that back in November after getting her IVIG infusion she started developing chest discomfort. She was thinking about going to the ER but his symptoms subsided so therefore she went home. She has also been noticing increasing blood pressures. She has also been noticing that the effusions have not been as effective at lease do not appear to be working longer than a few weeks and then she starts feeling under the weather again. Will need to check her IgG trough as the levels may be still allowing we may need to augmented therapy. We talked about pre treating her with Solu-Medrol and also Benadryl and Tylenol in order to minimize her adverse effects to the infusion and also we can also slow down the rate of infusion. This should help. Hopefully can also decrease her blood pressures. The patient also has been having chest discomfort. She also complains of leg swelling and pain. Will go ahead and recheck blood work including a D-dimer to assess for the risk of thrombotic disease. The IgG infusions will increase her risk of thrombotic disease. If the patient's D-dimer is negative she will still need a CT scan to further address her chest discomfort that is ongoing. In regards of her asthma therapy patient has been doing well but now with her increased symptoms will go ahead and optimize her therapy and switch her from the Advair HFA to breztri inhaler. 04/27/2023 the patient is here for a pulm onary follow-up visit. She recently received her IVIG after missing a months dose. The patient became significantly hypertensive while getting the infusion at a slow rate. She was pretreated but it was after the fact. The patient after the infusion does not feel quite right. She feels groggy and hard to maintain. The patient likely just has to recover after the infusion. Also, I did recommend she talk to her primary care doctor regarding her blood pressure that was elevated even prior to the infusion which was of approximately 160 systolic prior to the infusion and went up to 180 to 190 systolic during the infusion. She did receive hydralazine IV x1 with good response. The patient does have a very low IgG level and I do believe that the IVIG infusions are important for her so therefore will continue with therapy. She does feel better on the restroom inhaler. She does have some hoarseness though. She is rinsing well. No evidence of any thrush on my examination. 07/30/2023 the patient is here for a pulm onary follow-up visit. Overall she is doing well she is doing better with the infusions she is not having the issue with the blood pressure any longer. She is also getting premedicated. Will go ahead and repeat her blood work including the IgG trough and renal function to make sure that she is adequately being treated for the hypogammaglobulinemia. She her arthritis seems to be in better control. We did review the CT scan that she had back in February 2023 where he had said that her pulmonary nodules are stable and also said that there was some slight worsening of the interstitial changes on the left base. Although we looked at I closed together and she does have some areas of scarring but it does not look like if is anything related to underlying interstitial lung disease. Likely some residual scarring after having bad COVID a year and half ago. Another issue that she has is that she has been tachycardic. Once she was very short of breath and she looked at her smart watch and it documented that heart was 140. She will be seeing her new primary care doctor soon I did encourage her to talk about that with them. However, will be reasonable for her to get an EKG if she has not done already when she comes in for the blood work. She will receive her Prevnar 20 vaccine today. Otherwise she will continue getting her other shots at the pharmacy. 01/12/2024 the patient is here for a pulmt nar follow-up visit. The patient overall has been doing okay. She does complaint of dyspnea on exertion and also having episodes of palpitations. The palpitations have been intermittently. She has a smart watch and sometimes heart rate was noted to be 140 beats per minute. The episodes are fleeting. She did undergo an EKG which I personally reviewed. Does demonstrate a left axis deviation. QTc is normal. We did talk about using less caffeine in her diet. She can also decrease the breztri inhaler to 1 puff twice a day to try to minimize the beta affect. The patient is currently transitioning to doctors in [place]. However, will go ahead and request an echocardiogram to better address her symptoms. The patient should consider getting a cardiology evaluation or referral by her primary care doctor. The patient also continues with the IVIG treatments. She has been tolerating those well. Her last treatment was about 2 weeks ago. The patient does have significant hypogammaglobulinemia. The lowest I IgG level was in 386. And after starting IVIG her levels are now above 700. Still low but within normal ranges. Will continue on the current dose specially since she had adverse effects to the medication did require pretreatment. She is doing better with the pretreatment. We also did review her recent CT scan of the chest which is reassuring. Pulmonary nodules are stable. Changes in the left upper lobe airspace disease also improved. She has chronic findings mentioned in the report. 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 GERD (gastroesophageal reflux disease) Hypertension, essential, benign FRANCHESCA (generalized anxiety disorder) MDD (major depressive disorder) Osteopenia (~2016) Hypogammaglobulinemia Dyspnea Limb swelling Rheumatoid arthritis Asthma Surgical History History of bladder surgery (~2008) History of cholecystectomy (~1992) Family History (Updated 11/23/23 @ 09:24 by Jazz Pierson MD) Father Myocardial infarction, Onset Age: 55 Idiopathic neuropathy Brother Sudden cardiac , Onset Age: 53 Maternal Aunt Colon cancer Mother HTN (hypertension) Prediabetes Osteoarthritis cervical spine Osteopenia Maternal Grandmother Osteoarthritis cervical spine Osteopenia Osteoporosis Paternal Grandmother Osteoporosis Social History Household Members: Spouse and Other Household Members Other:: self Alcohol intake: current Alcohol intake frequency: holidays/special occasions only Patient Tobacco Use Status: Never used Tobacco Current occupational status: disabled Review of Systems Const Reports difficulty sleeping, Denies fatigue, Denies headache(s), Denies malaise and Denies night sweats ENT Denies change in voice, Denies headache(s), Denies lip swelling, Denies mouth pain, Reports nasal congestion, Reports nasal discharge and Denies tongue swelling Card Denies chest pain, Reports palpitations and Reports dyspnea on exertion Resp Reports cough and Reports dyspnea on exertion GI Denies abdominal pain Musc Reports as per HPI, Reports myalgias, Reports arthralgias and Reports joint swelling Neuro Denies Neuro-related abnormal movements and Denies headache(s) Psych Denies no additional complaints Endo Denies fatigue and Reports palpitations Feliberto/Lymph Denies easy bleeding and Denies lymphadenopathy Aller/Immun Denies lip swelling and Denies tongue swelling Physical Exam Vital Signs: Last Vital Signs Pulse 89 01/12/24 09:48 BP 128/70 01/12/24 09:48 Pulse Ox 99 01/12/24 09:48 Oxygen Delivery Method Room Air 01/12/24 09:48 BMI result Body Mass Index 24.9 Neck Neck: Yes normal visual inspection, Yes full ROM and Yes no lymphadenopathy Chest Chest palpation & inspection: normal inspection of the chest Resp Effort & Inspection: normal respiratory effort Auscultation: clear to auscultation bilaterally and no wheezes Cardio Rate: regular rate Rhythm: regular rhythm Heart sounds: S1 normal heart sound present and S2 normal heart sound present GI Palpation (GI): Soft to palpation and nontender Auscultation: normal bowel sounds Skin General skin exam: rashes and/or lesions noted Extrem General: Yes no clubbing, cyanosis or edema Results Reviewed Results Reviewed: [address] [address] [address] Scan Report Signed Patient: Jenny Dan MR#: [id number] : 1965 Acct:[id number] Age/Sex: 58 / F ADM Date: 01/04/24 Loc: HO.CT Attending Dr: Stephon Rodriguez MD Ordering Physician: Stephon Rodriguez MD Date of Service: 01/04/24 Procedure(s): CT chest wo IV con Accession Number(s): [id number] cc: Fatimah Yi; Stephon Rodriguez MD~ EXAMINATION: CT CHEST WITHOUT CONTRAST CLINICAL INFORMATION: Pulmonary nodules COMPARISON: CT scan of chest on 02/24/2023 TECHNIQUE: Multidetector volumetric CT imaging of the chest was done. Axial MIP volume rendering provided. Sagittal and coronal reformatted images were obtained. This CT examination was performed using dose optimization techniques as appropriate, variously including the following: *Automated exposure control *Adjustment of mA and/or kV according to patient size (this includes techniques or standardized protocols for targeted exams where dose is matched to indication/reason for exam; i.e. extremities or head) *Use of iterative reconstruction technique DLP: 139 mGy-cm FINDINGS: LUNGS: The visualized lung parenchyma is clear. There is interval resolution of interstitial densities in left upper and lower lobes. -Nodule #1 (Series 7, image 225): 2.3 mm solid nodule, anterior lateral corner of right lower lobe superior segment, previously 2 mm. -Nodule #2 (Series 7, image 341): 3.2 mm solid nodule, lateral pleural border of right lower lobe lateral basal segment, previously 3 mm. -Nodule #3 (Series 7, image 359): 2.3 mm solid nodule, posterior border of right middle lobe lateral segment attached to right major fissure, previously 2 mm. PLEURA: No pleural effusion or pneumothorax is seen. PERICARDIUM: No pericardial effusion is seen. MEDIASTINUM AND SEBASTIÁN: Inadequate evaluation of the mediastinal and hilar lymph nodes due to absence of IV contrast filling the surrounding blood vessels. TRACHEOBRONCHIAL TREE: Trachea and bilateral mainstem bronchi are patent. THORACIC AORTA: The thoracic aorta is normal in size with a few focal atherosclerotic calcifications. CORONARY ARTERY CALCIFICATIONS: None PULMONARY ARTERIES: The main pulmonary arteries appear to be normal in size. CHEST WALL AND LOWER NECK: The subcutaneous and muscular chest wall are intact with no focal lesion. Persistent right lower thyroid pole hypodense nodule measuring 0.9 cm in size is seen, series 3 image #5. BONES: Moderate posterior T6-T7 posterior syndesmophytes are seen impinging the thoracic spinal canal. No fracture or dislocation. No focal bone lesion diagnostic of metastatic disease could be seen in the thorax. VISUALIZED UPPER ABDOMEN: Bilateral adrenal glands are not enlarged. Surgical clips are seen in the gallbladder fossa. A punctate calculus is seen in lateral mid left renal calyx without caliectasis. CT/CT chest wo IV con IMPRESSION: 1. Interval resolution of interstitial densities in the left upper and lower lobes. 2. Multiple pulmonary nodules in the right lung are stable. 3. Right lower pole thyroid nodule is stable. 4. Unchanged Moderate posterior syndesmophytes at the T6-T7 level impinging the thoracic spinal canal. 5. Unchanged status post cholecystectomy and interval appearance of punctate mid left renal nonobstructive calculus. According to the UPDATED 2017 Fleischner Society recommendations, the advised follow-up imaging for solid nodules <6 mm in the middle/lower lobes is no routine follow up. . Incidental thyroid nodules up to 1.5 cm in diameter in patients 35 years of age or older are statistically overwhelmingly not clinically significant and no followup imaging recommended. Reference: J Am Danika Radiol 2015 b; 12(2): 143-50. Fleischner guidelines were followed. Dictated By: Bren Hart Signed By: <Electronically signed by Bren Hart in OV> 01/07/24 1135 RUN: 01/12/24 3049 PAGE 1 [facility] [address] [place] [id number] Records Analyst: Ulisses Carreno M.D. Specimen Inquiry Name: Jenny Dan Age/Sex: 57/F : 1965 Unit#: [id number] Attend Dr: Stephon Rodriguez MD Re02/04/22 Status: DEP [facility] Dis[facility]: SPEC : [id number] DANIKA: 02/04/22 STATUS: COMP REQ : [id number] RECD: 02/04/22 [facility] DR: Stephon Rodriguez MD COMP: 02/06/22 ENTERED: 02/04/22-1102 [facility] DR: Fatimah Yi ORDERED: IgG Subclasses, IgE Test Result Flag Reference IgG 1 211 L 382-929 mg/dL IgG 2 107 L 241-700 mg/dL IgG 3 33 22-178 mg/dL IgG 4 8.3 4-86 mg/dL IgG Total 386 L 600-1640 mg/dL THIS TEST WAS PERFORMED AT: [facility] [address] [address] RENEE STYLES MD IgE 38 <RX=253 kU/L THIS TEST WAS PERFORMED AT: [facility] [address],[place] [address] RENEE STYLES MD END OF REPORT Assessment & Plan Assessment & Plan (1) Dyspnea: Code(s): R06.00 - Dyspnea, unspecified Qualifiers: Dyspnea type: dyspnea on exertion Qualified Code(s): R06.09 - Other forms of dyspnea (2) Rheumatoid arthritis: Comment: Seronegative diagnosed in 2012 Methotrexate started in 2013 oral and subcu failed. HCQ started in 2014 Leflunomide for many years Failed Enbrel and Humira Kevzara cause mouth ulcers SSZ added 01/29 ineffective. DC 05/01 Actemra started 04/2023 effective Code(s): M06.9 - Rheumatoid arthritis, unspecified Qualifiers: Rheumatoid arthritis location: multiple sites Rheumatoid factor presence: without rheumatoid factor Qualified Code(s): M06.09 - Rheumatoid arthritis without rheumatoid factor, multiple sites (3) Asthma: Code(s): J45.909 - Unspecified asthma, uncomplicated Qualifiers: Asthma complication type: uncomplicated Asthma persistence: persistent Asthma severity: moderate Qualified Code(s): J45.40 - Moderate persistent asthma, uncomplicated (4) Hypogammaglobulinemia: Code(s): D80.1 - Nonfamilial hypogammaglobulinemia (5) Pulmonary nodules: Code(s): R91.8 - Other nonspecific abnormal finding of lung field Plan decrease Breztri 1 puff BID Continue AARON as needed continue IvIg 40gms IV q4 weeks continue pre treatment prior to IVIG Bloodwork just prior to next infusion ECHO will benefit from a cardiology eval Follow-up in 4-6 months Orders: Orders CA echo transthoracic complete Today I27.20 - Pulmonary hypertension, unspecified, R00.0 - Tachycardia, unspecified Immunoglobulin G Subclasses Today D80.1 - Nonfamilial hypogammaglobulinemia Erythrocyte Sedimentation Rate Today D80.1 - Nonfamilial hypogammaglobulinemia Complete Blood Count Auto Diff Today D80.1 - Nonfamilial hypogammaglobulinemia Basic Metabolic Panel Today D80.1 - Nonfamilial hypogammaglobulinemia Coding Level of Care Code Est Pt Level 4 (95451) Diagnoses Dyspnea on exertion R06.09 Dyspnea type: dyspnea on exertion Rheumatoid arthritis of multiple sites with negative rheumatoid factor M06.09 Rheumatoid arthritis location: multiple sites Rheumatoid factor presence: without rheumatoid factor Moderate persistent asthma without complication J45.40 Asthma complication type: uncomplicated Asthma persistence: persistent Asthma severity: moderate Hypogammaglobulinemia D80.1 Pulmonary nodules R91.8 Time Spent (min) 18
== END 2024-01-12 10:25 | disposition home or self-care (01) ==
PROVIDERS: PCP Nurse Practitioner; Visit Provider Hospitalist
DX: R06.09 Other forms of dyspnea (principal); M06.09 Rheumatoid arthritis without rheumatoid factor, multiple sites; J45.40 Moderate persistent asthma, uncomplicated; D80.1 Nonfamilial hypogammaglobulinemia; R91.8 Other nonspecific abnormal finding of lung field
CPT/HCPCS: 99214

== ENCOUNTER → 2024-01-12 09:38 | Outpatient (BNVA) | payer BC, MEDICARE, SELFPAY | PROVIDERS: PCP Nurse Practitioner; Visit Provider Hospitalist | DX: M06.09 Rheumatoid arthritis without rheumatoid factor, multiple sites (principal); R06.09 Other forms of dyspnea; J45.40 Moderate persistent asthma, uncomplicated; R91.8 Other nonspecific abnormal finding of lung field; D80.1 Nonfamilial hypogammaglobulinemia | CPT/HCPCS: 99212 ==

== ENCOUNTER 2024-01-28 09:26 | Outpatient (REF) | payer BC, MEDICARE, SELFPAY ==
[2024-01-28] VITALS (8 sets, daily range): BP systolic 138–161; BP diastolic 72–80; PULSE 74–84; RESP 16; TEMP 36.7; O2SAT 98; BMI 24.5
[2024-01-28] MEDS: methylPREDNISolone Sod Succ 40 MG/ML VIAL IVPUSH (09:40)
[2024-01-28] MEDS: diphenhydrAMINE HCL 25 MG CAPSULE PO (09:41)
[2024-01-28] MEDS: Acetaminophen 325 MG TABLET 650 MG PO (09:41)
== END 2024-01-28 09:27 | disposition home or self-care (01) ==
LOC: HO.MDS 09:26
PROVIDERS: Visit Provider Hospitalist
DX: D80.1 Nonfamilial hypogammaglobulinemia (principal)
CPT/HCPCS: 96365; 96366; 96375; J2920

== ENCOUNTER → 2024-02-02 13:46 | Outpatient (REF) | payer BC, MEDICARE, SELFPAY ==
--- NOTE | 2024-02-02 13:48 | CA_ITS ---
Transthoracic Echocardiogram Patient (Last, First, Middle): Jenny Dan S Gender: Female Date of : 1965 Age: 58 Procedure Date: 02/02/2024 Procedure Type: Transthoracic Echocardiogram Location: OP Height: 162.56 cm Weight: 64.41 kg BSA: 1.69 m2 Heart Rate: bpm BP: 122 / 60 mmHg Orthopedic Surgeon: Referring MD: Stephon Rodriguez MD Symptoms: I27.20 - Pulmonary hypertension, unspecified Study Quality: Good ECG Rhythm: Sinus Conclusions: - The left ventricular systolic function is normal. The calculated ejection fraction is 64% by biplane method. - No obvious valvular pathology seen on this study. - There is no evidence of pulmonary hypertension. Findings Left Ventricle Normal left ventricular cavity size. There is normal left ventricular wall thickness. The left ventricular systolic function is normal. The calculated ejection fraction is 64% by biplane method. There is no evidence of regional wall motion abnormalities. Diastolic function is normal for age. Right Ventricle Normal right ventricular cavity size and systolic function. Atria Both atria are normal in size. Aortic Valve There is a normal trileaflet aortic valve. There is no aortic valve stenosis. There is no aortic valve regurgitation. Mitral Valve The mitral valve appears normal. There is trace mitral valve regurgitation. There is no mitral valve stenosis. Pulmonic Valve The pulmonic valve is likely normal. Tricuspid Valve Normal tricuspid valve structure. There is trace tricuspid valve regurgitation. There is no evidence of pulmonary hypertension. Great Vessels The asc aorta is normal in size. Venous The inferior vena cava is normal in size and collapses greater than 50% with inspiration. Pericardium/Pleural There is no evidence of pericardial effusion. Prior Study Comparison No prior study available for comparison. Recommendations, Care & Conclusions No obvious valvular pathology seen on this study. Measurements 2D Linear Measurements IVSd: 1.02 0.6-0.9/0.6-1.0 cm LVIDd: 4.07 3.9-5.3/4.2-5.9 cm LVIDd Index: 2.41 2.4-3.2/2.2-3.1 cm/m2 LVIDs: 2.26 2.0-3.6 cm LVPWd: 0.85 0.7-1.1 cm Ao Root: 2.70 2.1-3.5 cm LA Diam: 3.50 2.7-3.8/3.0-4.0 cm LAIDs Index: 2.07 1.5-2.3 cm/m2 LV Mass: 147.85 67-162/88-224 g LV Mass Index: 87.49 43-95/49-115 g/m2 LVOT Diam: 1.90 3.0+(-)1.3 cm 2D Systolic Function EF 4C: 61.50 >55% EF 2C: 66.30 >55% EF BiP: 64.40 >55% Mitral Valve MV Pk E: 0.79 MV PK A: 1.08 MV Decel Time: 171.00 E/A: 0.70 E'Lateral: 13.70 E'Medial: 9.68 E/E' Med: 8.20 E/E' Lat: 5.80 PHT: 50.00 MVA PHT: 4.40 Decel Humphreys: 4.64 Aortic Valve AoV Pk Carlitos: 1.74 AoV Mn Carlitos: 1.08 AoV VTI: 0.34 AoV Pk Grad: 12.00 Aov Mn Grad: 6.00 SUSANA Cont.VTI: 2.13 LVOT LVOT Pk Carlitos: 1.19 LVOT Mn Carlitos: 0.77 LVOT VTI: 0.25 LVOT Pk Grad: 6.00 LVOT Mn Grad: 3.00 LVOT Diam: 1.90 LVOT Area: 2.84 Diastolic Function MV Pk E: 0.79 MV Pk A: 1.08 E/A: 0.70 E'Medial: 9.68 E/E' Med: 8.20 E' Laterial: 13.70 E/E' Lat: 5.80 Right Ventricle TAPSE (mm): 21.00 TVS' Carlitos: 12.00 Tricuspid Valve TR Pk Carlitos: 2.14 TR Pk Grad: 18.00 RA Press: 3.00 RVSP: 21.00 Great Vessels Aorta Ao Root-2D: 2.70 2.0-3.7 cm Ao Asc: 2.70 2.1-3.4 cm Pulmonary Valve PV Pk Carlitos: 1.17 Peak PV Grad: 5.00 Updated in Other Vendor System with Status of Final Yo Ascencio MD electronically signed on 02/02/2024 4:08:08 PM with status of Final
== END | disposition home or self-care (01) ==
LOC: HO.CARD 13:46
PROVIDERS: Visit Provider Hospitalist
DX: I27.20 Pulmonary hypertension, unspecified (principal); R00.0 Tachycardia, unspecified
CPT/HCPCS: 93306

== ENCOUNTER → 2024-02-02 13:48 | Outpatient (BNV) | payer BC, MEDICARE, SELFPAY | PROVIDERS: Visit Provider Internal Medicine | DX: I34.0 Nonrheumatic mitral (valve) insufficiency (principal) | CPT/HCPCS: 93306 ==

== ENCOUNTER 2024-04-21 09:14 | Outpatient (REF) | payer BC, MEDICARE, SELFPAY ==
[2024-04-21 09:43] LABS: MANUAL DIFF FLAG NO
[2024-04-21 09:59] LABS: Basophils Percent Auto 1.1 % (0-2); Eosinophils Absolute Auto 0.1 X10*3/uL (0.0-0.4); Eosinophils Percent Auto 1.9 % (0-4); Hematocrit 34.8 % (37.0-47.0); Hemoglobin 11.7 g/dl (12.0-16.0); Imm Gran Abs Auto 0.01 X10*3/uL (0.00-0.03); Imm Gran Pct Auto 0.3 % (0.0-0.4); Lymphocytes Absolute Auto 0.8 X10*3/uL (1.2-4.9); Lymphocytes Percent Auto 20.2 % (20-40); Mean Corpuscular HGB Conc 33.6 g/dl (31.0-35.0); Mean Corpuscular Hemoglobin 31.7 pg (27.0-33.0); Mean Corpuscular Volume 94.3 fL (80.0-98.0); Mean Platelet Volume 9.3 fL (9.4-12.3); Monocytes Absolute Auto 0.3 X10*3/uL (0.1-1.2); Monocytes Percent Auto 6.9 % (2-11); Neutrophils Absolute Auto 2.6 x10*3/uL (2.0-8.3); Neutrophils Percent Auto 69.6 % (45-73); Platelet Count 172 X10*3/uL (160-400); Red Blood Count 3.69 X10*6/uL (4.20-5.50); Red Cell Distribution Width 12.8 % (11.0-16.0); White Blood Count 3.8 X10*3/uL (4.8-10.8)
[2024-04-21 10:22] LABS: Alanine Aminotransferase 15 U/L (0-31); Albumin Level 4.1 g/dL (3.5-5.0); Alkaline Phosphatase 37 U/L (39-117); Anion Gap 13 (12-20); Aspartate Amino Transferase 21 U/L (5-31); Bilirubin Total 0.3 mg/dL (0.0-1.0); Blood Urea Nitrogen 12 mg/dL (9-16); C Reactive Protein < 0.10 mg/dL (< or = 0.50); Calcium 9.6 mg/dL (8.4-10.2); Carbon Dioxide 29 mmol/L (22-29); Chloride 104 mmol/L (96-108); Estimated Glomerular Filt Rate > 60; Glucose Random 90 mg/dL (60-115); Potassium 4.6 mmol/L (3.3-5.1); Sodium 141 mmol/L (135-145); Total Protein 6.6 g/dL (6.5-8.0)
[2024-04-21 10:38] LABS: Erythrocyte Sedimentation Rate 6 MM/HR (0-20)
[2024-04-25 17:13] LABS: Immunoglobulin G Subclass 1 463 mg/dL (382-929); Immunoglobulin G Subclass 2 306 mg/dL (241-700); Immunoglobulin G Subclass 3 34 mg/dL (22-178); Immunoglobulin G Subclass 4 11.5 mg/dL (4-86); Immunoglobulin G Total 831 mg/dL (600-1640)
== END 2024-04-21 09:15 | disposition home or self-care (01) ==
LOC: HO.LAB 09:14
PROVIDERS: PCP Family Medicine; Visit Provider Hospitalist
DX: D80.1 Nonfamilial hypogammaglobulinemia (principal); Z51.81 Encounter for therapeutic drug level monitoring; Z79.899 Other long term (current) drug therapy
CPT/HCPCS: 36415; 80053; 82784; 85025; 85652; 86140

== ENCOUNTER 2024-05-09 13:48 | Outpatient (AMB) | payer BC, MEDICARE, SELFPAY ==
[2024-05-09 13:59] VITALS: BP 102/60; PULSE 90; O2SAT 97; BMI 25.6
--- NOTE | 2024-05-09 13:59 | A.OFFVIS_ITS ---
Vital Signs 05/09/24 13:59 Height 5 ft 4 in Weight 149 lb BMI 25.6 BP 102/60 Blood Pressure Location Rt brachial Position Sitting Pulse 90 Pulse Source Doppler Pulse Oximetry (%) 97 Oxygen Delivery Method Room Air Intake Visit Reasons: asthma Allergies No Known Allergies Allergy (Verified 05/09/24 14:03) HPI Comments Details: The patient is a 59 y/o woman with known RA, asthma and hypogammaglobulinemia. She states that back in November after getting her IVIG infusion she started developing chest discomfort. She was thinking about going to the ER but his symptoms subsided so therefore she went home. She has also been noticing increasing blood pressures. She has also been noticing that the effusions have not been as effective at lease do not appear to be working longer than a few weeks and then she starts feeling under the weather again. Will need to check her IgG trough as the levels may be still allowing we may need to augmented therapy. We talked about pre treating her with Solu-Medrol and also Benadryl and Tylenol in order to minimize her adverse effects to the infusion and also we can also slow down the rate of infusion. This should help. Hopefully can also decrease her blood pressures. The patient also has been having chest discomfort. She also complains of leg swelling and pain. Will go ahead and recheck blood work including a D-dimer to assess for the risk of thrombotic disease. The IgG infusions will increase her risk of thrombotic disease. If the patient's D-dimer is negative she will still need a CT scan to further address her chest discomfort that is ongoing. In regards of her asthma therapy patient has been doing well but now with her increased symptoms will go ahead and optimize her therapy and switch her from the Advair HFA to breztri inhaler. 04/27/2023 the patient is here for a pulmonary follow-up visit. She recently received her IVIG after missing a months dose. The patient became significantly hypertensive while getting the infusion at a slow rate. She was pretreated but it was after the fact. The patient after the infusion does not feel quite right . She feels groggy and hard to maintain. The patient likely just has to recover after the infusion. Also, I did recommend she talk to her primary care doctor regarding her blood pressure that was elevated even prior to the infusion which was of approximately 160 systolic prior to the infusion and went up to 180 to 190 systolic during the infusion. She did receive hydralazine IV x1 with good response. The patient does have a very low IgG level and I do believe that the IVIG infusions are important for her so therefore will continue with therapy. She does feel better on the restroom inhaler. She does have some hoarseness though. She is rinsing well. No evidence of any thrush on my examination. 07/30/2023 the patient is here for a pulmonary follow-up visit. Overall she is doing well she is doing better with the infusions she is not having the issue with the blood pressure any longer. She is also getting premedicated. Will go ahead and repeat her blood work including the IgG trough and renal function to make sure that she is adequately being treated for the hypogammaglobulinemia. She her arthritis seems to be in better control. We did review the CT scan that she had back in February 2023 where he had said that her pulmonary nodules are stable and also said that there was some slight worsening of the interstitial changes on the left base. Although we looked at I closed together and she does have some areas of scarring but it does not look like if is anything related to underlying interstitial lung disease. Likely some residual scarring after having bad COVID a year and half ago. Another issue that she has is that she has been tachycardic. Once she was very short of breath and she looked at her smart watch and it documented that heart was 140. She will be seeing her new primary care doctor soon I did encourage her to talk about that with them. However, will be reasonable for her to get an EKG if she has not done already when she comes in for the blood work. She will receive her Prevnar 20 vaccine today. Otherwise she will continue getting her other shots at the pharmacy. 01/12/2024 the patient is here for a pulmonary follow-up visit. The patient saran hoffmann has been doing okay. She does complaint of dyspnea on exertion and also having episodes of palpitations. The palpitations have been intermittently. She has a smart watch and sometimes heart rate was noted to be 140 beats per minute. The episodes are fleeting. She did undergo an EKG which I personally reviewed. Does demonstrate a left axis deviation. QTc is normal. We did talk about using less caffeine in her diet. She can also decrease the breztri inhaler to 1 puff twice a day to try to minimize the beta affect. The patient is currently transitioning to doctors in [place]. However, will go ahead and request an echocardiogram to better address her symptoms. The patient should consider getting a cardiology evaluation or referral by her primary care doctor. The patient also continues with the IVIG treatments. She has been tolerating those well. Her last treatment was about 2 weeks ago. The patient does have significant hypogammaglobulinemia. The lowest I IgG level was in 386. And after starting IVIG her levels are now above 700. Still low but within normal ranges. Will continue on the current dose specially since she had adverse effects to the medication did require pretreatment. She is doing better with the pretreatment. We also did review her recent CT scan of the chest which is reassuring. Pulmonary nodules are stable. Changes in the left upper lobe airspace disease also improved. She has chronic findings mentioned in the report. 05/09/2024 the patient is here for a pulmonary follow-up visit. Overall the patient has been doing well. She has been tolerating the IVIG. Recently her son was diagnosed with bronchitis and also was diagnosed with strep throat. Therefore she has been concerned about getting sick. She understands she does have a working immune system. She has been closely working with rheumatology. She appears to have seronegative arthritis. Her diagnosis is being further evaluated. We did review her recent CT scan of the chest. The patient does not have any evidence of pneumonitis. In addition to that her airways appear to be stable without any evidence of bronchiectasis. The patient has been on the IVIG every 4 weeks. Her levels are now normalized. Will continue with the every 4 we treatment plan. no adverse effects at this time. She continues with respiratory therapy. She has been able to back off on the inhalers which is fine at this point. If she does develop worsening symptoms see needs to start taking them more regularly. 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 GERD (gastroesophageal reflux disease) Hypertension, essential, benign FRANCHESCA (generalized anxiety disorder) MDD (major depressive disorder) Osteopenia (~2016) Hypogammaglobulinemia Dyspnea Limb swelling Rheumatoid arthritis Asthma Surgical History History of bladder surgery (~2008) History of cholecystectomy (~1992) Family History (Updated 11/23/23 @ 09:24 by Jazz Pierson MD) Father Myocardial infarction, Onset Age: 55 Idiopathic neuropathy Brother Sudden cardiac , Onset Age: 53 Maternal Aunt Colon cancer Mother HTN (hypertension) Prediabetes Osteoarthritis cervical spine Osteopenia Maternal Grandmother Osteoarthritis cervical spine Osteopenia Osteoporosis Paternal Grandmother Osteoporosis Social History Household Members: Spouse and Other Household Members Other:: self Alcohol intake: current Alcohol intake frequency: holidays/special occasions only Patient Tobacco Use Status: Never used Tobacco Current occupational status: disabled Review of Systems Const Reports difficulty sleeping, Denies fatigue, Denies headache(s), Denies malaise and Denies night sweats ENT Denies change in voice, Denies headache(s), Denies lip swelling, Denies mouth pain, Reports nasal congestion, Reports nasal discharge and Denies tongue swelling Card Denies chest pain, Reports palpitations and Reports dyspnea on exertion Resp Reports cough and Reports dyspnea on exertion GI Denies abdominal pain Musc Reports as per HPI, Reports myalgias, Reports arthralgias and Reports joint swelling Neuro Denies Neuro-related abnormal movements and Denies headache(s) Psych Denies no additional complaints Endo Denies fatigue and Reports palpitations Feliberto/Lymph Denies easy bleeding and Denies lymphadenopathy Aller/Immun Denies lip swelling and Denies tongue swelling Physical Exam Vital Signs: Last Vital Signs Pulse 90 05/09/24 13:59 BP 102/60 05/09/24 13:59 Pulse Ox 97 05/09/24 13:59 Oxygen Delivery Method Room Air 05/09/24 13:59 BMI result Body Mass Index 25.6 Neck Neck: Yes normal visual inspection, Yes full ROM and Yes no lymphadenopathy Chest Chest palpation & inspection: normal inspection of the chest Resp Effort & Inspection: normal respiratory effort Auscultation: clear to auscultation bilaterally and no wheezes Cardio Rate: regular rate Rhythm: regular rhythm Heart sounds: S1 normal heart sound present and S2 normal heart sound present GI Palpation (GI): Soft to palpation and nontender Auscultation: normal bowel sounds Skin General skin exam: rashes and/or lesions noted Extrem General: Yes no clubbing, cyanosis or edema Assessment & Plan Assessment & Plan (1) Dyspnea: Code(s): R06.00 - Dyspnea, unspecified Category: Medical Qualifiers: Dyspnea type: dyspnea on exertion Qualified Code(s): R06.09 - Other forms of dyspnea (2) Rheumatoid arthritis: Comment: Seronegative diagnosed in 2012 Methotrexate started in 2013 oral and subcu failed. HCQ started in 2014 Leflunomide for many years Failed Enbrel and Humira Kevzara cause mouth ulcers SSZ added 01/29 ineffective. DC 05/01 Actemra started 04/2023 effective Code(s): M06.9 - Rheumatoid arthritis, unspecified Category: Medical Qualifiers: Rheumatoid arthritis location: multiple sites Rheumatoid factor presence: without rheumatoid factor Qualified Code(s): M06.09 - Rheumatoid arthritis without rheumatoid factor, multiple sites (3) Asthma: Code(s): J45.909 - Unspecified asthma, uncomplicated Category: Medical Qualifiers: Asthma complication type: uncomplicated Asthma persistence: persistent Asthma severity: moderate Qualified Code(s): J45.40 - Moderate persistent asthma, uncomplicated (4) Hypogammaglobulinemia: Code(s): D80.1 - Nonfamilial hypogammaglobulinemia Category: Medical (5) Pulmonary nodules: Code(s): R91.8 - Other nonspecific abnormal finding of lung field Category: Medical Plan decrease Breztri 1 puff BID Continue AARON as needed continue IvIg 40gms IV q4 weeks continue pre treatment prior to IVIG cardiology eval pending Follow-up in 6 months Coding Level of Care Code Est Pt Level 4 (35806) Diagnoses Dyspnea on exertion R06.09 Dyspnea type: dyspnea on exertion Rheumatoid arthritis of multiple sites with negative rheumatoid factor M06.09 Rheumatoid arthritis location: multiple sites Rheumatoid factor presence: without rheumatoid factor Moderate persistent asthma without complication J45.40 Asthma complication type: uncomplicated Asthma persistence: persistent Asthma severity: moderate Hypogammaglobulinemia D80.1 Pulmonary nodules R91.8 Time Spent (min) 17
== END 2024-05-09 14:16 | disposition home or self-care (01) ==
PROVIDERS: PCP Family Medicine; Visit Provider Hospitalist
DX: R06.09 Other forms of dyspnea (principal); M06.09 Rheumatoid arthritis without rheumatoid factor, multiple sites; J45.40 Moderate persistent asthma, uncomplicated; D80.1 Nonfamilial hypogammaglobulinemia; R91.8 Other nonspecific abnormal finding of lung field
CPT/HCPCS: 99214

== ENCOUNTER → 2024-05-09 13:48 | Outpatient (BNVA) | payer BC, MEDICARE, SELFPAY | PROVIDERS: PCP Family Medicine; Visit Provider Hospitalist | DX: J45.40 Moderate persistent asthma, uncomplicated (principal); R06.09 Other forms of dyspnea; R91.8 Other nonspecific abnormal finding of lung field | CPT/HCPCS: 99212 ==

== ENCOUNTER 2024-11-11 11:09 | Outpatient (AMB) | payer MEDICARE, BC, SELFPAY ==
[2024-11-11 11:23] VITALS: BP 128/64; PULSE 87; O2SAT 97; BMI 27.4
--- NOTE | 2024-11-11 11:23 | MHC.OFFVIS ---
Vital Signs 11/11/24 11:23 Height 5 ft 4 in Weight 159 lb 13.362 oz BMI 27.4 BP 128/64 Blood Pressure Location Lt brachial Position Sitting Pulse 87 Pulse Source Pulse Oximeter Pulse Oximetry (%) 97 Oxygen Delivery Method Room Air Intake Visit Reasons: asthma Allergies No Known Allergies Allergy (Verified 11/11/24 11:26) HPI Comments Details: The patient is a 59 y/o woman with known RA, asthma and hypogammaglobulinemia. She states that back in November after getting her IVIG infusion she started developing chest discomfort. She was thinking about going to the ER but his symptoms subsided so therefore she went home. She has also been noticing increasing blood pressures. She has also been noticing that the effusions have not been as effective at lease do not appear to be working longer than a few weeks and then she starts feeling under the weather again. Will need to check her IgG trough as the levels may be still allowing we may need to augmented therapy. We talked about pre treating her with Solu-Medrol and also Benadryl and Tylenol in order to minimize her adverse effects to the infusion and also we can also slow down the rate of infusion. This should help. Hopefully can also decrease her blood pressures. The patient also has been having chest discomfort. She also complains of leg swelling and pain. Will go ahead and recheck blood work including a D-dimer to assess for the risk of thrombotic disease. The IgG infusions will increase her risk of thrombotic disease. If the patient's D-dimer is negative she will still need a CT scan to further address her chest discomfort that is ongoing. In regards of her asthma therapy patient has been doing well but now with her increased symptoms will go ahead and optimize her therapy and switch her from the Advair HFA to breztri inhaler. 04/27/2023 the patient is here for a pulmonary follow-up visit. She recently received her IVIG after missing a months dose. The patient became significantly hypertensive while getting the infusion at a slow rate. She was pretreated but it was after the fact. The patient after the infusion does not feel quite right. She feels groggy and hard to maintain. The patient likely just has to recover after the infusion. Also, I did recommend she talk to her primary care doctor regarding her blood pressure that was elevated even prior to the infusion which was of approximately 160 systolic prior to the infusion and went up to 180 to 190 systolic during the infusion. She did receive hydralazine IV x1 with good response. The patient does have a very low IgG level and I do believe that the IVIG infusions are important for her so therefore will continue with therapy. She does feel better on the restroom inhaler. She does have some hoarseness though. She is rinsing well. No evidence of any thrush on my examination. 07/30/2023 the patient is here for a pulmonary follow-up visit. Overall she is doing well she is doing better with the infusions she is not having the issue with the blood pressure any longer. She is also getting premedicated. Will go ahead and repeat her blood work including the IgG trough and renal function to make sure that she is adequately being treated for the hypogammaglobulinemia. She her arthritis seems to be in better control. We did review the CT scan that she had back in February 2023 where he had said that her pulmonary nodules are stable and also said that there was some slight worsening of the interstitial changes on the left base. Although we looked at I closed together and she does have some areas of scarring but it does not look like if is anything related to underlying interstitial lung disease. Likely some residual scarring after having bad COVID a year and half ago. Another issue that she has is that she has been tachycardic. Once she was very short of breath and she looked at her smart watch and it documented that heart was 140. She will be seeing her new primary care doctor soon I did encourage her to talk about that with them. However, will be reasonable for her to get an EKG if she has not done already when she comes in for the blood work. She will receive her Prevnar 20 vaccine today. Otherwise she will continue getting her other shots at the pharmacy. 01/12/2024 the patient is here for a pulmonary follow-up visit. The patient overall has been doing okay. She does complaint of dyspnea on exertion and also having episodes of palpitations. The palpitations have been intermittently. She has a smart watch and sometimes heart rate was noted to be 140 beats per minute. The episodes are fleeting. She did undergo an EKG which I personally reviewed. Does demonstrate a left axis deviation. QTc is normal. We did talk about using less caffeine in her diet. She can also decrease the breztri inhaler to 1 puff twice a day to try to minimize the beta affect. The patient is currently transitioning to doctors in [place]. However, will go ahead and request an echocardiogram to better address her symptoms. The patient should consider getting a cardiology evaluation or referral by her primary care doctor. The patient also continues with the IVIG treatments. She has been tolerating those well. Her last treatment was about 2 weeks ago. The patient does have significant hypogammaglobulinemia. The lowest I IgG level was in 386. And after starting IVIG her levels are now above 700. Still low but within normal ranges. Will continue on the current dose specially since she had adverse effects to the medication did require pretreatment. She is doing better with the pretreatment. We also did review her recent CT scan of the chest which is reassuring. Pulmonary nodules are stable. Changes in the left upper lobe airspace disease also improved. She has chronic findings mentioned in the report. 05/09/2024 the patient is here for a pulmonary follow-up visit. Overall the patient has been doing well. She has been tolerating the IVIG. Recently her son was diagnosed with bronchitis and also was diagnosed with strep throat. Therefore she has been concerned about getting sick. She understands she does have a working immune system. She has been closely working with rheumatology. She appears to have seronegative arthritis. Her diagnosis is being further evaluated. We did review her recent CT scan of the chest. The patient does not have any evidence of pneumonitis. In addition to that her airways appear to be stable without any evidence of bronchiectasis. The patient has been on the IVIG every 4 weeks. Her levels are now normalized. Will continue with the every 4 we treatment plan. no adverse effects at this time. She continues with respiratory therapy. She has been able to back off on the inhalers which is fine at this point. If she does develop worsening symptoms see needs to start taking them more regularly. 11/11/2024 the patient is here for a pulmonary follow-up visit. Overall she is doing well. She did have a full cardiac workup which is reassuring. She was started on a statin and she is having some myalgias. She has significant rheumatological history so it is difficult to know if he is feeling to the medication her ongoing comorbidities. She will talk to her staple fiber washer for that. In the meantime she is still on the IVIG. She is wondering how she is going to have to be on it. She has been on for almost 2 years. Will go ahead and check her IgG throughout with the hopes that we can start decreasing the frequency of the IgG infusions. If her levels are above 800 ideally above 900 we could try to extend the frequency to every 6 weeks. And then we can follow her closely after that. She will continue to use her respiratory therapy. The patient will return for 6 months. If she has any issues prior to that she will call for an earlier assessment. 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 GERD (gastroesophageal reflux disease) Hypertension, essential, benign FRANCHESCA (generalized anxiety disorder) MDD (major depressive disorder) Osteopenia (~2016) Hypogammaglobulinemia Dyspnea Limb swelling Rheumatoid arthritis Asthma Surgical History History of bladder surgery (~2008) History of cholecystectomy (~1992) Family History (Updated 11/23/23 @ 09:24 by Jazz Pierson MD) Father Myocardial infarction, Onset Age: 55 Idiopathic neuropathy Brother Sudden cardiac , Onset Age: 53 Maternal Aunt Colon cancer Mother HTN (hypertension) Prediabetes Osteoarthritis cervical spine Osteopenia Maternal Grandmother Osteoarthritis cervical spine Osteopenia Osteoporosis Paternal Grandmother Osteoporosis Social History Household Members: Spouse and Other Household Members Other:: self Alcohol intake: current Alcohol intake frequency: holidays/special occasions only Patient Tobacco Use Status: Never used Tobacco Current occupational status: disabled Review of Systems Const Reports difficulty sleeping, Denies fatigue, Denies headache(s), Denies malaise and Denies night sweats ENT Denies change in voice, Denies headache(s), Denies lip swelling, Denies mouth pain, Reports nasal congestion, Reports nasal discharge and Denies tongue swelling Card Denies chest pain, Reports palpitations and Reports dyspnea on exertion Resp Reports cough and Reports dyspnea on exertion GI Denies abdominal pain Musc Reports as per HPI, Reports myalgias, Reports arthralgias and Reports joint swelling Neuro Denies Neuro-related abnormal movements and Denies headache(s) Psych Denies no additional complaints Endo Denies fatigue and Reports palpitations Feliberto/Lymph Denies easy bleeding and Denies lymphadenopathy Aller/Immun Denies lip swelling and Denies tongue swelling Physical Exam Vital Signs: Last Vital Signs Pulse 87 11/11/24 11:23 BP 128/64 11/11/24 11:23 Pulse Ox 97 11/11/24 11:23 Oxygen Delivery Method Room Air 11/11/24 11:23 BMI result Body Mass Index 27.4 Neck Neck: Yes normal visual inspection, Yes full ROM and Yes no lymphadenopathy Chest Chest palpation & inspection: normal inspection of the chest Resp Effort & Inspection: normal respiratory effort Auscultation: clear to auscultation bilaterally and no wheezes Cardio Rate: regular rate Rhythm: regular rhythm Heart sounds: S1 normal heart sound present and S2 normal heart sound present GI Palpation (GI): Soft to palpation and nontender Auscultation: normal bowel sounds Skin General skin exam: rashes and/or lesions noted Extrem General: Yes no clubbing, cyanosis or edema Assessment & Plan Assessment & Plan (1) Dyspnea: Code(s): R06.00 - Dyspnea, unspecified Category: Medical Qualifiers: Dyspnea type: dyspnea on exertion Qualified Code(s): R06.09 - Other forms of dyspnea (2) Rheumatoid arthritis: Comment: Seronegative diagnosed in 2012 Methotrexate started in 2013 oral and subcu failed. HCQ started in 2014 Leflunomide for many years Failed Enbrel and Humira Kevzara cause mouth ulcers SSZ added 01/29 ineffective. DC 05/01 Actemra started 04/2023 effective Code(s): M06.9 - Rheumatoid arthritis, unspecified Category: Medical Qualifiers: Rheumatoid arthritis location: multiple sites Rheumatoid factor presence: without rheumatoid factor Qualified Code(s): M06.09 - Rheumatoid arthritis without rheumatoid factor, multiple sites (3) Asthma: Code(s): J45.909 - Unspecified asthma, uncomplicated Category: Medical Qualifiers: Asthma complication type: uncomplicated Asthma persistence: persistent Asthma severity: moderate Qualified Code(s): J45.40 - Moderate persistent asthma, uncomplicated (4) Hypogammaglobulinemia: Code(s): D80.1 - Nonfamilial hypogammaglobulinemia Category: Medical (5) Pulmonary nodules: Code(s): R91.8 - Other nonspecific abnormal finding of lung field Category: Medical Plan coninue Breztri 1-2 puff BID Continue AARON as needed continue IvIg 40gms IV q4 weeks, check through if good, change to every 6 weeks continue pre treatment prior to IVIG cardiology f/u Follow-up in 6 months Orders: Orders Complete Blood Count Auto Diff 11/11/24 D80.1 - Nonfamilial hypogammaglobulinemia Liver Panel 11/11/24 D80.1 - Nonfamilial hypogammaglobulinemia Basic Metabolic Panel 11/11/24 D80.1 - Nonfamilial hypogammaglobulinemia Immunoglobulin G Subclasses 11/11/24 D80.1 - Nonfamilial hypogammaglobulinemia Erythrocyte Sedimentation Rate 11/11/24 D80.1 - Nonfamilial hypogammaglobulinemia Coding Level of Care Code Est Pt Level 4 (13149) Diagnoses Dyspnea on exertion R06.09 Dyspnea type: dyspnea on exertion Rheumatoid arthritis of multiple sites with negative rheumatoid factor M06.09 Rheumatoid arthritis location: multiple sites Rheumatoid factor presence: without rheumatoid factor Moderate persistent asthma without complication J45.40 Asthma complication type: uncomplicated Asthma persistence: persistent Asthma severity: moderate Hypogammaglobulinemia D80.1 Pulmonary nodules R91.8 Time Spent (min) 16
== END 2024-11-11 11:49 | disposition home or self-care (01) ==
PROVIDERS: PCP Family Medicine; Visit Provider Hospitalist
DX: R06.09 Other forms of dyspnea (principal); M06.09 Rheumatoid arthritis without rheumatoid factor, multiple sites; J45.40 Moderate persistent asthma, uncomplicated; D80.1 Nonfamilial hypogammaglobulinemia; R91.8 Other nonspecific abnormal finding of lung field
CPT/HCPCS: 99214

== ENCOUNTER → 2024-11-11 11:09 | Outpatient (BNVA) | payer MEDICARE, BC, SELFPAY | PROVIDERS: PCP Family Medicine; Visit Provider Hospitalist | DX: J45.40 Moderate persistent asthma, uncomplicated (principal); R06.09 Other forms of dyspnea; M06.09 Rheumatoid arthritis without rheumatoid factor, multiple sites; R91.8 Other nonspecific abnormal finding of lung field; D80.1 Nonfamilial hypogammaglobulinemia | CPT/HCPCS: 99212 ==

== ENCOUNTER 2025-04-13 13:55 | Outpatient (AMB) | payer MEDICARE, BC, SELFPAY ==
[2025-04-13 13:59] VITALS: BP 140/72; PULSE 92; O2SAT 97; BMI 29.3
--- NOTE | 2025-04-13 13:59 | MHC.OFFVIS ---
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 She states that back in November after getting her IVIG infusion she started developing chest discomfort. She was thinking about going to the ER but his symptoms subsided so therefore she went home. She has also been noticing increasing blood pressures. She has also been noticing that the effusions have not been as effective at lease do not appear to be working longer than a few weeks and then she starts feeling under the weather again. Will need to check her IgG trough as the levels may be still allowing we may need to augmented therapy. We talked about pre treating her with Solu-Medrol and also Benadryl and Tylenol in order to minimize her adverse effects to the infusion and also we can also slow down the rate of infusion. This should help. Hopefully can also decrease her blood pressures. The patient also has been having chest discomfort. She also complains of leg swelling and pain. Will go ahead and recheck blood work including a D-dimer to assess for the risk of thrombotic disease. The IgG infusions will increase her risk of thrombotic disease. If the patient's D-dimer is negative she will still need a CT scan to further address her chest discomfort that is ongoing. In regards of her asthma therapy patient has been doing well but now with her increased symptoms will go ahead and optimize her therapy and switch her from the Advair HFA to breztri inhaler. 04/27/2023 the patient is here for a pulmonary follow-up visit. She recently received her IVIG after missing a months dose. The patient became significantly hypertensive while getting the infusion at a slow rate. She was pretreated but it was after the fact. The patient after the infusion does not feel quite right. She feels groggy and hard to maintain. The patient likely just has to recover after the infusion. Also, I did recommend she talk to her primary care doctor regarding her blood pressure that was elevated even prior to the infusion which was of approximately 160 systolic prior to the infusion and went up to 180 to 190 systolic during the infusion. She did receive hydralazine IV x1 with good response. The patient does have a very low IgG level and I do believe that the IVIG infusions are important for her so therefore will continue with therapy. She does feel better on the restroom inhaler. She does have some hoarseness though. She is rinsing well. No evidence of any thrush on my examination. 07/30/2023 the patient is here for a pulmonary follow-up visit. Overall she is doing well she is doing better with the infusions she is not having the issue with the blood pressure any longer. She is also getting premedicated. Will go ahead and repeat her blood work including the IgG trough and renal function to make sure that she is adequately being treated for the hypogammaglobulinemia. She her arthritis seems to be in better control. We did review the CT scan that she had back in February 2023 where he had said that her pulmonary nodules are stable and also said that there was some slight worsening of the interstitial changes on the left base. Although we looked at I closed together and she does have some areas of scarring but it does not look like if is anything related to underlying interstitial lung disease. Likely some residual scarring after having bad COVID a year and half ago. Another issue that she has is that she has been tachycardic. Once she was very short of breath and she looked at her smart watch and it documented that heart was 140. She will be seeing her new primary care doctor soon I did encourage her to talk about that with them. However, will be reasonable for her to get an EKG if she has not done already when she comes in for the blood work. She will receive her Prevnar 20 vaccine today. Otherwise she will continue getting her other shots at the pharmacy. 01/12/2024 the patient is here for a pulmonary follow-up visit. The patient overall has been doing okay. She does complaint of dyspnea on exertion and also having episodes of palpitations. The palpitations have been intermittently. She has a smart watch and sometimes heart rate was noted to be 140 beats per minute. The episodes are fleeting. She did undergo an EKG which I personally reviewed. Does demonstrate a left axis deviation. QTc is normal. We did talk about using less caffeine in her diet. She can also decrease the breztri inhaler to 1 puff twice a day to try to minimize the beta affect. The patient is currently transitioning to doctors in [place]. However, will go ahead and request an echocardiogram to better address her symptoms. The patient should consider getting a cardiology evaluation or referral by her primary care doctor. The patient also continues with the IVIG treatments. She has been tolerating those well. Her last treatment was about 2 weeks ago. The patient does have significant hypogammaglobulinemia. The lowest I IgG level was in 386. And after starting IVIG her levels are now above 700. Still low but within normal ranges. Will continue on the current dose specially since she had adverse effects to the medication did require pretreatment. She is doing better with the pretreatment. We also did review her recent CT scan of the chest which is reassuring. Pulmonary nodules are stable. Changes in the left upper lobe airspace disease also improved. She has chronic findings mentioned in the report. 05/09/2024 the patient is here for a pulmonary follow-up visit. Overall the patient has been doing well. She has been tolerating the IVIG. Recently her son was diagnosed with bronchitis and also was diagnosed with strep throat. Therefore she has been concerned about getting sick. She understands she does have a working immune system. She has been closely working with rheumatology. She appears to have seronegative arthritis. Her diagnosis is being further evaluated. We did review her recent CT scan of the chest. The patient does not have any evidence of pneumonitis. In addition to that her airways appear to be stable without any evidence of bronchiectasis. The patient has been on the IVIG every 4 weeks. Her levels are now normalized. Will continue with the every 4 we treatment plan. no adverse effects at this time. She continues with respiratory therapy. She has been able to back off on the inhalers which is fine at this point. If she does develop worsening symptoms see needs to start taking them more regularly. 11/11/2024 the patient is here for a pulmonary follow-up visit. Overall she is doing well. She did have a full cardiac workup which is reassuring. She was started on a statin and she is having some myalgias. She has significant rheumatological history so it is difficult to know if he is feeling to the medication her ongoing comorbidities. 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 In the meantime she is still on the IVIG. She is wondering how she is going to have to be on it. She has been on for almost 2 years. Will go ahead and check her IgG throughout with the hopes that we can start decreasing the frequency of the IgG infusions. If her levels are above 800 ideally above 900 we could try to extend the frequency to every 6 weeks. And then we can follow her closely after that. She will continue to use her respiratory therapy. The patient will return for 6 months. If she has any issues prior to that she will call for an earlier assessment. 04/13/2025 the patient is here for pulmonary follow-up visit. Overall she doing well. She continues on the IV IgG every 4 weeks and she does not really have any significant adverse effects from it. Sometimes she gets some fatigue and sometimes she has a slight elevations in blood pressure. But she tolerates it very well. She has been off the prednisone which is reassuring. Although she does have some arthralgias and myalgias coming off the prednisone. She is going to await watching wait for any symptom relief. But is good that she is off the prednisone. She is wondering about backing off on the IVIG to every 6 weeks which I believe is a good option although now she is being evaluated for small fiber neuropathies and typically does respond well to the IVIG so therefore I did recommend she continue with the workup with Neurology to assess the possibility of small fiber nerve neuropathy. If indeed she does not have a small fiber involvement then I do believe we can change the frequency to every 6 weeks. She will call me when she is able to find out the results of her studies. 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 GERD (gastroesophageal reflux disease) Hypertension, essential, benign FRANCHESCA (generalized anxiety disorder) MDD (major depressive disorder) Osteopenia (~2016) Hypogammaglobulinemia Dyspnea Limb swelling Rheumatoid arthritis Asthma Surgical History History of bladder surgery (~2008) History of cholecystectomy (~1992) Family History (Updated 11/23/23 @ 09:24 by Jazz Pierson MD) Father Myocardial infarction, Onset Age: 55 Idiopathic neuropathy Brother Sudden cardiac , Onset Age: 53 Maternal Aunt Colon cancer Mother HTN (hypertension) Prediabetes Osteoarthritis cervical spine Osteopenia Maternal Grandmother Osteoarthritis cervical spine Osteopenia Osteoporosis Paternal Grandmother Osteoporosis Social History Household Members: Spouse and Other Household Members Other:: self Alcohol intake: current Alcohol intake frequency: holidays/special occasions only Patient Tobacco Use Status: Never used Tobacco Current occupational status: disabled Review of Systems Const Reports difficulty sleeping, Denies fatigue, Denies headache(s), Denies malaise and Denies night sweats ENT Denies change in voice, Denies headache(s), Denies lip swelling, Denies mouth pain, Reports nasal congestion, Reports nasal discharge and Denies tongue swelling Card Denies chest pain and Reports dyspnea on exertion Resp Reports cough and Reports dyspnea on exertion GI Denies abdominal pain Musc Reports as per HPI, Reports myalgias, Reports arthralgias and Reports joint swelling Neuro Denies Neuro-related abnormal movements and Denies headache(s) Psych Denies no additional complaints Endo Denies fatigue Feliberto/Lymph Denies easy bleeding and Denies lymphadenopathy Aller/Immun Denies lip swelling and Denies tongue swelling Physical Exam Vital Signs: Last Vital Signs Pulse 92 04/13/25 13:59 BP 140/72 H 04/13/25 13:59 Pulse Ox 97 04/13/25 13:59 Oxygen Delivery Method Room Air 04/13/25 13:59 BMI result Body Mass Index 29.3 Neck Neck: Yes normal visual inspection, Yes full ROM and Yes no lymphadenopathy Chest Chest palpation & inspection: normal inspection of the chest Resp Effort & Inspection: normal respiratory effort Auscultation: clear to auscultation bilaterally and no wheezes Cardio Rate: regular rate Rhythm: regular rhythm Heart sounds: S1 normal heart sound present and S2 normal heart sound present GI Palpation (GI): Soft to palpation and nontender Auscultation: normal bowel sounds Skin General skin exam: rashes and/or lesions noted Extrem General: Yes no clubbing, cyanosis or edema Assessment & Plan Assessment & Plan (1) Dyspnea: Code(s): R06.00 - Dyspnea, unspecified Category: Medical Qualifiers: Dyspnea type: dyspnea on exertion Qualified Code(s): R06.09 - Other forms of dyspnea (2) Rheumatoid arthritis: Comment: Seronegative diagnosed in 2012 Methotrexate started in 2013 oral and subcu failed. HCQ started in 2014 Leflunomide for many years Failed Enbrel and Humira Kevzara cause mouth ulcers SSZ added 01/29 ineffective. DC 05/01 Actemra started 04/2023 effective Code(s): M06.9 - Rheumatoid arthritis, unspecified Category: Medical Qualifiers: Rheumatoid arthritis location: multiple sites Rheumatoid factor presence: without rheumatoid factor Qualified Code(s): M06.09 - Rheumatoid arthritis without rheumatoid factor, multiple sites (3) Asthma: Code(s): J45.909 - Unspecified asthma, uncomplicated Category: Medical Qualifiers: Asthma complication type: uncomplicated Asthma persistence: persistent Asthma severity: moderate Qualified Code(s): J45.40 - Moderate persistent asthma, uncomplicated (4) Hypogammaglobulinemia: Code(s): D80.1 - Nonfamilial hypogammaglobulinemia Category: Medical (5) Pulmonary nodules: Code(s): R91.8 - Other nonspecific abnormal finding of lung field Category: Medical Plan coninue Melvini 1-2 puff BID Continue AARON as needed continue IvIg 40gms IV q4 weeks, check through if good, change to every 6 weeks once evaluation is complete continue pre treatment prior to IVIG cardiology f/u Follow-up in 6 months Coding Level of Care Code Est Pt Level 4 (94867) Complex EM visit Add On G2211 Diagnoses Dyspnea on exertion R06.09 Dyspnea type: dyspnea on exertion Rheumatoid arthritis of multiple sites with negative rheumatoid factor M06.09 Rheumatoid arthritis location: multiple sites Rheumatoid factor presence: without rheumatoid factor Moderate persistent asthma without complication J45.40 Asthma complication type: uncomplicated Asthma persistence: persistent Asthma severity: moderate Hypogammaglobulinemia D80.1 Pulmonary nodules R91.8 Time Spent (min) 17
--- OUTSIDE RECORDS SUMMARY | 2025-04-13 16:29 | XMS_ITS | Encounter Summary ---
Author Organization [facility] Address [facility] [place] [address] Care Team Providers Care Vice President Of Talent Management Name Role Phone Farhana Carmona DO Primary Care Provider Reason for Visit * Reason Comments Medication Refill Encounter Details Date Type Department Care Team ([facility] st Contact Info) Description 03/29/2024 Refill Primary Care at [address] [address] Farhana Carmona DO [address] [place] [address] Sensory neuropathy Social History Tobacco Use Types Packs/Day Years Used Date Smoking Tobacco: Never Smokeless Tobacco: Never Alcohol Use Standard Drinks/Week Comments Yes 0 (1 standard drink = 0.6 oz pur e alcohol) 4-5/week Overall Financial Resource Strain (CARDIA) Answe r Date Recorded How hard is it for you to pa y for the very basics like food, housing, medical care, and heating? Very hard 07/27/2023 Exercise Vital Sign Answer Date Recorde d On average, how many days pe r week do you engage in moderate to strenuous exercise (like a brisk walk)? 2 days 07/27/2023 On average, how many minutes do you engage in exercise at this level? 20 min 07/27/2023 Hunger Vital Sign Answer Date Recorded Within the past 12 months, y ou worried that your food would run out before you got the money to buy more. Sometimes true Within the past 12 months, t he food you bought just didn't last and you didn't have money to get more. Never true PRAPARE - Transportation Answer Date Re corded In the past 12 months, has l ack of transportation kept you from medical appointments or from getting medications? No 07/10 In the past 12 months, has l ack of transportation kept you from meetings, work, or from getting things needed for daily living? No 07/27/2023 Housing Stability Vital Sign Answer Surjit e Recorded In the last 12 months, was t here a time when you were not able to pay the mortgage or rent on time? No 07/27/2023 In the last 12 months, how many places have you lived? 2 07/27/2023 In the last 12 months, was t here a time when you did not have a steady place to sleep or slept in a senior care (including now)? No 07/27/2023 Education Answer Date Recorded What is the highest level of school you have completed or the highest degree you have received? Bachelor's degree (e.g., BA, AB, BS) 07/27/2023 Comments No Sex and Gender Information Value Date Recorded Sex Assigned at Female 07/27/2023 9:09 AM EDT Legal Sex Female 2:40 PM EDT Gender Identity Female 07/27/2023 9:09 AM EDT Sexual Orientation Straight 07/27/2023 9: 09 AM EDT documented as of this encounter Plan of Treatment Upcoming Encounters Date Type Department Care Team (Late st Contact Info) Description 04/14/2025 3:00 PM EDT TH Visit (TeleHealth) [place] [address] Alma Valles PA [facility] [address] 04/18/2025 4:30 PM EDT TH Visit (TeleHealth) [place] [address] Janet Becker MD [facility] [place] [address] 05/31/2025 8:30 AM EDT Office Visit Orthopaedics at [place] [address] Bruno Meade MD [facility] [place] [address] 06/21/2025 12:00 PM EDT Office Visit Rheumatology at [address] Darwin Horta MD [facility] [place] [address] 07/21/2025 11:20 AM EDT Office Visit Cardiology at [address] [phone] Addison Cruz PA [address] [place] [address] 04/09/2026 9:25 AM EDT Office Visit Primary Care at [address] [phone] Farhana Carmona DO [address] [place] [address] documented as of this encounter Visit Diagnoses Diagnosis 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
== END 2025-04-13 14:20 | disposition home or self-care (01) ==
LOC: HO.HPS 13:56
PROVIDERS: PCP Family Medicine; Visit Provider Hospitalist
DX: R06.09 Other forms of dyspnea (principal); M06.09 Rheumatoid arthritis without rheumatoid factor, multiple sites; J45.40 Moderate persistent asthma, uncomplicated; D80.1 Nonfamilial hypogammaglobulinemia; R91.8 Other nonspecific abnormal finding of lung field
CPT/HCPCS: 99214; G2211

== ENCOUNTER → 2025-04-13 13:55 | Outpatient (BNVA) | payer BC, MEDICARE, SELFPAY | PROVIDERS: PCP Family Medicine; Visit Provider Hospitalist | DX: R06.09 Other forms of dyspnea (principal); M06.09 Rheumatoid arthritis without rheumatoid factor, multiple sites; J45.40 Moderate persistent asthma, uncomplicated; D80.1 Nonfamilial hypogammaglobulinemia; R91.8 Other nonspecific abnormal finding of lung field | CPT/HCPCS: 99212 ==

== ENCOUNTER 2025-09-19 14:08 | Outpatient (AMB) | payer MEDICARE, BC, SELFPAY ==
[2025-09-19 14:16] VITALS: BP 136/70; PULSE 80; O2SAT 100; BMI 28.8
--- NOTE | 2025-09-19 14:16 | MHC.OFFVIS ---
Vital Signs 09/19/25 14:16 Height 5 ft 4 in Weight 167 lb 8.821 oz BMI 28.8 BP 136/70 Blood Pressure Location Lt brachial Position Sitting Pulse 80 Pulse Source Pulse Oximeter Pulse Oximetry (%) 100 Oxygen Delivery Method Room Air Intake Visit Reasons: Asthma Credit Risk Manager Required: No Accompanied by: Self / Same As Patient Allergies No Known Allergies Allergy (Verified 09/19/25 14:19) HPI Comments Details: The patient is a 60 y/o woman with known RA, asthma and hypogammaglobulinemia. She states that back in November after getting her IVIG infusion she started developing chest discomfort. She was thinking about going to the ER but his symptoms subsided so therefore she went home. She has also been noticing increasing blood pressures. She has also been noticing that the effusions have not been as effective at lease do not appear to be working longer than a few weeks and then she starts feeling under the weather again. Will need to check her IgG trough as the levels may be still allowing we may need to augmented therapy. We talked about pre treating her with Solu-Medrol and also Benadryl and Tylenol in order to minimize her adverse effects to the infusion and also we can also slow down the rate of infusion. This should help. Hopefully can also decrease her blood pressures. The patient also has been having chest discomfort. She also complains of leg swelling and pain. Will go ahead and recheck blood work including a D-dimer to assess for the risk of thrombotic disease. The IgG infusions will increase her risk of thrombotic disease. If the patient's D-dimer is negative she will still need a CT scan to further address her chest discomfort that is ongoing. In regards of her asthma therapy patient has been doing well but now with her increased symptoms will go ahead and optimize her therapy and switch her from the Advair HFA to breztri inhaler. 04/27/2023 the patient is here for a pulmonary follow-up visit. She recently received her IVIG after missing a months dose. The patient became significantly hypertensive while getting the infusion at a slow rate. She was pretreated but it was after the fact. The patient after the infusion does not feel quite right. She feels groggy and hard to maintain. The patient likely just has to recover after the infusion. Also, I did recommend she talk to her primary care doctor regarding her blood pressure that was elevated even prior to the infusion which was of approximately 160 systolic prior to the infusion and went up to 180 to 190 systolic during the infusion. She did receive hydralazine IV x1 with good response. The patient does have a very low IgG level and I do believe that the IVIG infusions are important for her so therefore will continue with therapy. She does feel better on the restroom inhaler. She does have some hoarseness though. She is rinsing well. No evidence of any thrush on my examination. 07/30/2023 the patient is here for a pulmonary follow-up visit. Overall she is doing well she is doing better with the infusions she is not having the issue with the blood pressure any longer. She is also getting premedicated. Will go ahead and repeat her blood work including the IgG trough and renal function to make sure that she is adequately being treated for the hypogammaglobulinemia. She her arthritis seems to be in better control. We did review the CT scan that she had back in February 2023 where he had said that her pulmonary nodules are stable and also said that there was some slight worsening of the interstitial changes on the left base. Although we looked at I closed together and she does have some areas of scarring but it does not look like if is anything related to underlying interstitial lung disease. Likely some residual scarring after having bad COVID a year and half ago. Another issue that she has is that she has been tachycardic. Once she was very short of breath and she looked at her smart watch and it documented that heart was 140. She will be seeing her new primary care doctor soon I did encourage her to talk about that with them. However, will be reasonable for her to get an EKG if she has not done already when she comes in for the blood work. She will receive her Prevnar 20 vaccine today. Otherwise she will continue getting her other shots at the pharmacy. 01/12/2024 the patient is here for a pulmonary follow-up visit. The patient overall has been doing okay. She does complaint of dyspnea on exertion and also having episodes of palpitations. The palpitations have been intermittently. She has a smart watch and sometimes heart rate was noted to be 140 beats per minute. The episodes are fleeting. She did undergo an EKG which I personally reviewed. Does demonstrate a left axis deviation. QTc is normal. We did talk about using less caffeine in her diet. She can also decrease the breztri inhaler to 1 puff twice a day to try to minimize the beta affect. The patient is currently transitioning to doctors in [place]. However, will go ahead and request an echocardiogram to better address her symptoms. The patient should consider getting a cardiology evaluation or referral by her primary care doctor. The patient also continues with the IVIG treatments. She has been tolerating those well. Her last treatment was about 2 weeks ago. The patient does have significant hypogammaglobulinemia. The lowest I IgG level was in 386. And after starting IVIG her levels are now above 700. Still low but within normal ranges. Will continue on the current dose specially since she had adverse effects to the medication did require pretreatment. She is doing better with the pretreatment. We also did review her recent CT scan of the chest which is reassuring. Pulmonary nodules are stable. Changes in the left upper lobe airspace disease also improved. She has chronic findings mentioned in the report. 05/09/2024 the patient is here for a pulmonary follow-up visit. Overall the patient has been doing well. She has been tolerating the IVIG. Recently her son was diagnosed with bronchitis and also was diagnosed with strep throat. Therefore she has been concerned about getting sick. She understands she does have a working immune system. She has been closely working with rheumatology. She appears to have seronegative arthritis. Her diagnosis is being further evaluated. We did review her recent CT scan of the chest. The patient does not have any evidence of pneumonitis. In addition to that her airways appear to be stable without any evidence of bronchiectasis. The patient has been on the IVIG every 4 weeks. Her levels are now normalized. Will continue with the every 4 we treatment plan. no adverse effects at this time. She continues with respiratory therapy. She has been able to back off on the inhalers which is fine at this point. If she does develop worsening symptoms see needs to start taking them more regularly. 11/11/2024 the patient is here for a pulmonary follow-up visit. Overall she is doing well. She did have a full cardiac workup which is reassuring. She was started on a statin and she is having some myalgias. She has significant rheumatological history so it is difficult to know if he is feeling to the medication her ongoing comorbidities. She will talk to her lead infrastructure architect for that. In the meantime she is still on the IVIG. She is wondering how she is going to have to be on it. She has been on for almost 2 years. Will go ahead and check her IgG throughout with the hopes that we can start decreasing the frequency of the IgG infusions. If her levels are above 800 ideally above 900 we could try to extend the frequency to every 6 weeks. And then we can follow her closely after that. She will continue to use her respiratory therapy. The patient will return for 6 months. If she has any issues prior to that she will call for an earlier assessment. 04/13/2025 the patient is here for pulmonary follow-up visit. Overall she doing well. She continues on the IV IgG every 4 weeks and she does not really have any significant adverse effects from it. Sometimes she gets some fatigue and sometimes she has a slight elevations in blood pressure. But she tolerates it very well. She has been off the prednisone which is reassuring. Although she does have some arthralgias and myalgias coming off the prednisone. She is going to await watching wait for any symptom relief. But is good that she is off the prednisone. She is wondering about backing off on the IVIG to every 6 weeks which I believe is a good option although now she is being evaluated for small fiber neuropathies and typically does respond well to the IVIG so therefore I did recommend she continue with the workup with Neurology to assess the possibility of small fiber nerve neuropathy. If indeed she does not have a small fiber involvement then I do believe we can change the frequency to every 6 weeks. She will call me when she is able to find out the results of her studies. 09/19/2025 the patient is here for pulmonary follow-up visit. Overall she is doing good. We had checked her trough levels for the IgG in the levels are reasonable so we switch over to every 6 weeks. She did get the 1st dose but then she developed significant nausea migraines. I will give her some Reglan that she can use as needed if she does develop it again and also to go slow with the infusions to minimize on the blood pressure issues. The patient did tolerate it well. That will continue with every 6 weeks for another for dosages and then will check another draft to see if we can decrease the dose further. She will continue with the current respiratory therapy as prescribed as this is very affecting beneficial. And she will follow-up closely Rheumatology. For now she is stable will going to follow-up in 4-6 months if she any issues she can always call for an earlier assessment and recommendations. 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 GERD (gastroesophageal reflux disease) Hypertension, essential, benign FRANCHESCA (generalized anxiety disorder) MDD (major depressive disorder) Osteopenia (~2016) Hypogammaglobulinemia Dyspnea Limb swelling Rheumatoid arthritis Asthma Surgical History History of bladder surgery (~2008) History of cholecystectomy (~1992) Family History (Updated 11/23/23 @ 09:24 by Jazz Pierson MD) Father Myocardial infarction, Onset Age: 55 Idiopathic neuropathy Brother Sudden cardiac , Onset Age: 53 Maternal Aunt Colon cancer Mother HTN (hypertension) Prediabetes Osteoarthritis cervical spine Osteopenia Maternal Grandmother Osteoarthritis cervical spine Osteopenia Osteoporosis Paternal Grandmother Osteoporosis Social History Household Members: Spouse and Other Household Members Other:: self Alcohol intake: current Alcohol intake frequency: holidays/special occasions only Patient Tobacco Use Status: Never used Tobacco Current occupational status: disabled Review of Systems Const Reports difficulty sleeping, Denies fatigue, Denies headache(s), Denies malaise and Denies night sweats ENT Denies change in voice, Denies headache(s), Denies lip swelling, Denies mouth pain, Reports nasal congestion, Reports nasal discharge and Denies tongue swelling Card Denies chest pain and Reports dyspnea on exertion Resp Reports cough and Reports dyspnea on exertion GI Denies abdominal pain Musc Reports as per HPI, Reports myalgias, Reports arthralgias and Reports joint swelling Neuro Denies Neuro-related abnormal movements and Denies headache(s) Psych Denies no additional complaints Endo Denies fatigue Feliberto/Lymph Denies easy bleeding and Denies lymphadenopathy Aller/Immun Denies lip swelling and Denies tongue swelling Physical Exam Vital Signs: Last Vital Signs Pulse 80 09/19/25 14:16 BP 136/70 09/19/25 14:16 Pulse Ox 100 09/19/25 14:16 Oxygen Delivery Method Room Air 09/19/25 14:16 BMI result Body Mass Index 28.8 Neck Neck: Yes normal visual inspection, Yes full ROM and Yes no lymphadenopathy Chest Chest palpation & inspection: normal inspection of the chest Resp Effort & Inspection: normal respiratory effort Auscultation: clear to auscultation bilaterally and no wheezes Cardio Rate: regular rate Rhythm: regular rhythm Heart sounds: S1 normal heart sound present and S2 normal heart sound present GI Palpation (GI): Soft to palpation and nontender Auscultation: normal bowel sounds Skin General skin exam: rashes and/or lesions noted Extrem General: Yes no clubbing, cyanosis or edema Office Procedures Flu Questionnaire Does the patient have a severe egg allergy?: No Does the patient have severe life threatening allergies?: No Does the patient have a fever or illness today?: No Has the patient ever had Guillain-Kohler Syndrome?: No Has the patient ever had any past reaction to a flu shot?: No Immunizations Fluarix [id number] (PF) 45 mcg (15 mcg x 3)/0.5 mL IM syringe Performing Provider: Stephon Rodriguez MD Performing Location: [facility] Administered by: Jaqueline Aldana LPN on 09/19/25 14:42 Dose Route Admin Location Dispensed Lot Number Expiration Date NDC Flash Oven Operator 0.5 mL IM Right Deltoid 0.5 mL [id number] 05/08/26 88528-350-43 [employer] VIS Given Date VIS Provided VIS Publication Date 09/19/25 Single Vaccine 24 Eligibility Eligibility Date Funding Source Not [facility] Eligible 09/19/25 Private Assessment & Plan Assessment & Plan (1) Dyspnea: Code(s): R06.00 - Dyspnea, unspecified Category: Medical Qualifiers: Dyspnea type: dyspnea on exertion Qualified Code(s): R06.09 - Other forms of dyspnea (2) Rheumatoid arthritis: Comment: Seronegative diagnosed in 2012 Methotrexate started in 2013 oral and subcu failed. HCQ started in 2014 Leflunomide for many years Failed Enbrel and Humira Kevzara cause mouth ulcers SSZ added 01/29 ineffective. DC 05/01 Actemra started 04/2023 effective Code(s): M06.9 - Rheumatoid arthritis, unspecified Category: Medical Qualifiers: Rheumatoid arthritis location: multiple sites Rheumatoid factor presence: without rheumatoid factor Qualified Code(s): M06.09 - Rheumatoid arthritis without rheumatoid factor, multiple sites (3) Asthma: Code(s): J45.909 - Unspecified asthma, uncomplicated Category: Medical Qualifiers: Asthma complication type: uncomplicated Asthma persistence: persistent Asthma severity: moderate Qualified Code(s): J45.40 - Moderate persistent asthma, uncomplicated (4) Hypogammaglobulinemia: Code(s): D80.1 - Nonfamilial hypogammaglobulinemia Category: Medical (5) Pulmonary nodules: Code(s): R91.8 - Other nonspecific abnormal finding of lung field Category: Medical Plan coninue Breztri 1-2 puff BID Continue AARON as needed continue IvIg 40gms IV every 6 weeks, will recheck through prior to the 4th dose to further adjust continue pre treatment prior to IVIG reglan as needed cardiology f/u Follow-up in 6 months Orders: Orders Immunoglobulin G Subclasses Today D80.1 - Nonfamilial hypogammaglobulinemia Erythrocyte Sedimentation Rate Today D80.1 - Nonfamilial hypogammaglobulinemia Influenza [id number] Immunization Today D80.1 - Nonfamilial hypogammaglobulinemia Basic Metabolic Panel Today D80.1 - Nonfamilial hypogammaglobulinemia Complete Blood Count Auto Diff Today D80.1 - Nonfamilial hypogammaglobulinemia Medications: New metoclopramide HCl 5 mg PO Q8H PRN 14 tabs 2RF nausea and vomiting 30 days Coding Level of Care Code Est Pt Level 4 (80908) Complex EM visit Add On G2211 Diagnoses Dyspnea on exertion R06.09 Dyspnea type: dyspnea on exertion Rheumatoid arthritis of multiple sites with negative rheumatoid factor M06.09 Rheumatoid arthritis location: multiple sites Rheumatoid factor presence: without rheumatoid factor Moderate persistent asthma without complication J45.40 Asthma complication type: uncomplicated Asthma persistence: persistent Asthma severity: moderate Hypogammaglobulinemia D80.1 Pulmonary nodules R91.8 Time Spent (min) 16
--- OUTSIDE RECORDS SUMMARY | 2025-09-19 15:50 | XMS_ITS ---
[place] [address] Care Team Providers Care Photolith Operator Name Role Phone Farhana Carmona DO Primary Care Provider Rheumatology Status:Enrolled (Active) Start date:12/23/2023 Enrollment date:12/23/2023 Enrollment reason:Enrolled - Currently Fills with Specialty Current support & services provided:Clinical Management, Refill Management, Prior Authorization Management Linked medications:tocilizumab (Active) Linked problems:Rheumatoid arthritis (Active) Continued Care and Services Coordination
--- OUTSIDE RECORDS SUMMARY | 2025-09-19 15:50 | XMS_ITS | Clinical Summary ---
Author Organization [facility] Address [address] [facility] [place] [address] Care Team Providers Care Live Out Nanny Name Role Phone Farhana Carmona DO Primary Care Provider Allergies No known active allergies Medications budesonide-glyc opyr-formoterol (Breztri Aerosphere) 160-9-4.8 mcg/actuation HFA Aerosol InhalerIndicati ons:Asthma, unspecified asthma severity, unspecified whether complicated, unspecified whether persistent Inhale 2 puffs into the lungs 2 times daily. 08/03/20 23 Active albuteroL 90 mcg/actuation HFA Aerosol InhalerIndicati ons:Asthma, unspecified asthma severity, unspecified whether complicated, unspecified whether persistent Inhale 2 puffs into the lungs every 4 hours as needed for Wheezing. Use with spacer 1 each 1 08/03/20 23 Active selegiline (Emsam) 12 mg/24 hr Patch 24 hrIndications:D epression, unspecified depression type Change 1 patch on the skin daily. 30 patch 12 08/03/20 23 Active magnesium glycinate 100 mg magnesium Capsule Take 400 mg by mouth nightly. 360 capsule 3 10/23/20 23 Active b complex vitamins Capsule Take 1 capsule by mouth daily. Active multivitamin (THERAGRAN) Tablet Take 1 tablet by mouth daily. Active cholecalciferol , Vitamin D3, 25 mcg (1,000 unit) Capsule Take 1,000 Units by mouth daily. Active aspirin EC 81 mg EC (DR) tablet Take 81 mg by mouth daily. Active lisinopriL (Zestril) 10 mg tabletIndicatio ns:Hypertension , unspecified type TAKE 1 & 1/2 (ONE & ONE-HALF) TABLETS BY MOUTH ONCE DAILY 135 tablet 3 10/20/20 24 Active Additional Information Patient taking differently: 10 mgOral DAILY, Reported on 08/01/2025 estradioL (Vagifem) 10 mcg vaginal tabletIndicatio ns:Vaginal atrophy Place 1 tablet vaginally daily for 2 weeks, then twice weekly thereafter. 24 tablet 5 12/02/19 25 Active calcium citrate (Calcitrate) 200 mg (950 mg) tablet Take 2 tablets by mouth twice daily 120 tablet 11 12/22/19 25 Active amLODIPine (Norvasc) 5 mg tabletIndicatio ns:Hypertension , unspecified type Take 1 tablet by mouth once daily 90 tablet 3 03/03/20 25 Active gabapentin (Neurontin) 100 mg capsuleIndicati ons:Sensory neuropathy Take 300 mg in ain and an afternoon and 400 mg before bed 03/28/20 25 Active Additional Information Patient taking differently: Take 300 mg in ain and an afternoon and 600 mg before bed. Can take an extra if in pain at night, Reported on 08/01/2025 hydroxychloroqu ine (Plaquenil) 300 mg tabletIndicatio ns:Rheumatoid arthritis, involving unspecified site, unspecified whether rheumatoid factor present Take 1 tablet by mouth daily. 90 tablet 2 04/10/20 25 Active gabapentin (Neurontin) 300 mg capsuleIndicati ons:Spinal stenosis of lumbar region with radiculopathy,C arpal tunnel syndrome, bilateral,Cervi marko radicular pain 1 tab in AM, 1 tab in PM, 2 tabs before bed 120 capsule 11 04/20/20 25 Active tocilizumab (Actemra ACTPen) 162 mg/0.9 mL Pen InjectorIndicat ions:rheumatoid arthritis,M06.9 Inject 0.9 mLs subcutaneously every 14 days. Indications: rheumatoid arthritis, M06.9 1.8 mL 5 05/30/20 25 Active montelukast (Singulair) 10 mg tabletIndicatio ns:Asthma, unspecified asthma severity, unspecified whether complicated, unspecified whether persistent Take 1 tablet by mouth nightly 90 tablet 3 06/06/20 25 Active immune globulin (Privigen) 40 g/400 mL Solution 12/13/19 25 Active acetaminophen (Tylenol) 500 mg tablet Take 2 tablets by mouth every 8 hours as needed. 06/16/20 25 Active ibuprofen (Advil) 600 mg tablet Take 1 tablet by mouth every 6 hours as needed. 06/16/20 25 Active dicyclomine (Bentyl) 10 mg capsuleIndicati ons:Irritable bowel syndrome, unspecified type Take 1 capsule by mouth twice daily 180 capsule 07/10/20 25 Active celecoxib (CeleBREX) 200 mg capsuleIndicati ons:Rheumatoid arthritis, involving unspecified site, unspecified whether rheumatoid factor present TAKE 1 CAPSULE BY MOUTH TWICE DAILY NEEDED FOR PAIN 180 capsule 07/06/20 25 Active omeprazole (PriLOSEC) [address] capsule Take 1 capsule by mouth Daily at Noon. 90 capsule 3 07/17/20 25 Active atorvastatin (Lipitor) 20 mg tablet Take 1 tablet by mouth once daily 90 tablet 3 08/16/20 25 Active Active Problems Problem Noted Date Diagnosed Date S/P left endoscopic carpal t unnel release 07/18/25 Dr. Meade 07/18/2025 s/p right carpal tunnel release DOS 06/16/25 ([facility]) 06/07/2025 Osteopenia 12/15/2023 Thyroid nodule 08/03/2023 Depression, recurrent 08/03/2023 Gastroesophageal reflux disease 08/03/2023 Tubular adenoma of colon 08/03/2023 Hypertension 08/03/2023 Hypogammaglobulinemia 08/03/2023 Rheumatoid arthritis 08/03/2023 Anxiety 10/10/2013 Major depressive disorder, r ecurrent episode, in partial remission with anxious distress 12/09/2012 Resolved Problems Problem Noted Date Diagnosed Date Resolved Date Adrenal insufficiency 08/03/20232024 Encounters Date Type Department Care Team Description 09/19/2025 Specialty [place] [address] Tae Strong, [employer] Refill Coordination - 28 day recurrence - tocilizumab (Actemra ACTPen) for Rheumatology 09/08/2025 10:00 AM EDT Office Visit Physical Therapy at [address] [phone] Herlinda Kimball, PT Stress incontinence of urine; Fecal smearing; Disorder of muscle, ligament, and fascia 09/08/2025 Travel 09/01/2025 Travel 08/31/2025 Results Follow-Up Primary Care at [address] [phone] Farhana Carmona, DO Hemogram 08/29/2025 1:55 PM EDT Laboratory Appointment Lab [address] [address] Pancytopenia 08/29/2025 Travel 08/25/2025 10:00 AM EDT Office Visit Physical Therapy at [address] [phone] Herlinda Kimball, PT Stress incontinence of urine; Fecal smearing; Disorder of muscle, ligament, and fascia 08/25/2025 Plan of Care Documentation Physical Therapy at [address] [phone] 08/25/2025 Travel 08/18/2025 Travel 08/16/2025 Specialty [place] [address] Tae Strong, [employer] Refill Coordination - 28 day recurrence - tocilizumab (Actemra ACTPen) for Rheumatology 08/12/2025 Refill Cardiology at [address] [phone] Peggy Church MD Medication Refill 08/01/2025 11:00 AM EDT [place] [address] Virginia Cervantes PA S/P left endoscopic carpal tunnel release 07/18/25 Dr. Meade; Trigger thumb, right thumb 07/31/2025 Travel 07/25/2025 11:00 AM EDT Office Visit [place] [address] Abdoul Paige MD Spinal stenosis of lumbar region with radiculopathy (Primary Dx); Chronic bilateral low back pain with bilateral sciatica 07/25/2025 Specialty [place] [address] Tae Strong, [facility] Refill Coordination - 28 day recurrence - tocilizumab (Actemra ACTPen) for Rheumatology 07/24/2025 Results Follow-Up Cardiology at [address] [phone] Addison Cruz PA Magnesium, TSH Grand, Basic Metabolic Panel Non-fasting, CBC (with Diff) 07/21/2025 12:50 PM EDT Laboratory Appointment Lab at [address] [phone] Positional lightheadedness 07/21/2025 11:20 AM EDT Office Visit Cardiology at [address] [phone] Addison Cruz PA Positional lightheadedness; Essential hypertension; Hyperlipidemia LDL goal <100 07/21/2025 Travel 07/18/2025 12:52 PM EDT - 07/18/2025 1:42 PM EDT Surgery [facility] [place] [address] Bruno Meade MD ENDOSCOPY WRIST W/ RELEASE TRANSVERSE CARPAL LIGAMENT (WRVU 6.39) 07/18/2025 11:01 AM EDT Anesthesia Event [facility] [place] [address] Jerome Yan MD 07/18/2025 9:45 AM EDT - 07/18/2025 11:52 AM EDT Hospital Encounter [facility] [place] [address] Bruno Meade MD Carpal tunnel syndrome on left Discharge Disposition: Home 07/18/2025 Travel 07/17/2025 Refill Primary Care at [address] [phone] Susie Villegas LNA 07/14/2025 Travel 07/09/2025 Refill Primary Care at [address] [phone] Farhana Carmona, Irritable bowel syndrome, unspecified type 07/07/2025 External [place] [address] Janet Becker MD 07/05/2025 [place] [phone] Darwin Horta MD Rheumatoid arthritis, involving unspecified site, unspecified whether rheumatoid factor present 07/05/2025 Refill Primary Care at [address] [phone] Farhana Carmona, Irritable bowel syndrome, unspecified type 07/04/2025 3:30 PM EDT TH Visit (TeleHealth) [place] [address] Janet Becker MD Neck pain; Spinal stenosis of lumbar region with radiculopathy 07/03/2025 9:40 AM EDT [place] [phone] Virginia Cervantes PA s/p right carpal tunnel release DOS 06/16/25 ([place]); Carpal tunnel syndrome on left; Trigger thumb, right thumb 07/03/2025 8:15 AM EDT [place] [address] Tae Gomez OT s/p right carpal tunnel release DOS 06/16/25 ([place]); Trigger thumb, right thumb; Carpal tunnel syndrome on left 07/03/2025 Plan of Care [place] [phone] 06/29/2025 Travel 06/27/2025 [place]ty [place] [address] Glenn Gibson, [facility] Refill Coordination - 28 day recurrence - tocilizumab (Actemra ACTPen) for Rheumatology 06/21/2025 12:00 PM EDT [place] [phone] Darwin Horta MD Rheumatoid arthritis, involving unspecified site, unspecified whether rheumatoid factor present; Hypogammaglobulinemia; Personal history of high risk medication treatment 06/21/2025 Travel from Last 3 Months Immunizations Immunization Administration Dates Next Due Covid-19 Monovalent (Moderna Spikevax) 12yrs+ ([id number]) 11/14/2021,03/20/2021,02/27/2021 Influenza (Flucelvax) Trival ent Preservative Free, Egg Free Madin Jyotsna Canine Kidney 10/01/2024 Influenza Quadrivalent, Pres ervative Free 08/03/2023,09/09/2022,08/20/2020,2018,08/03/2018,07/27/2017 Td Adult (not absorbed) 02/09/2019 Tdap (Adacel, Boostrix) 03/29/2009 Zoster Recombinant (ShingRix) 06/16/2024, 024 Family History Medical History Relation Comments Osteoporosis Maternal Grandmother Osteoporosis Mother Skin Cancer Mother Osteoporosis Paternal Grandmother Breast Cancer Neg Hx Cervical Cancer Neg Hx Colorectal Cancer Neg Hx Diabetes Neg Hx Ovarian Cancer Neg Hx Uterine Cancer Neg Hx Relation Status Comments Maternal Grandmother Mother Paternal Grandmother Social History Tobacco Use Types Packs/Day Years Used Date Smoking Tobacco: Never Passive Smoke Exposure: Past Smokeless Tobacco: Never Tobacco Cessation:Counseling Given: Not Answered Alcohol Use Standard Drinks/Week Comments Yes 3 (1 standard drink = 0.6 oz pur e alcohol) 3-4/week B1300 Health Literacy Answer Date Recor ded How often do you need to hav e someone help you when you read instructions, pamphlets, or other written material from your doctor or pharmacy? Never 03/21/2025 [employer] Utilities Answer Date Recorded In the past 12 months has [employer] gas, oil, or water company threatened to shut off services in your home? No 03/21/2025 Overall Financial Resource Strain (CARDIA) Answe r Date Recorded How hard is it for you to pa y for the very basics like food, housing, medical care, and heating? Not very hard 03/21/2025 Exercise Vital Sign Answer Date Recorde d On average, how many days pe r week do you engage in moderate to strenuous exercise (like a brisk walk)? 0 days 03/21/2025 On average, how many minutes do you engage in exercise at this level? 0 min 03/21/2025 Hunger Vital Sign Answer Date Recorded Within the past 12 months, y ou worried that your food would run out before you got the money to buy more. Never true 03/21/20 25 Within the past 12 months, t he food you bought just didn't last and you didn't have money to get more. Never true 03/21/2025 PRAPARE - Transportation Answer Date Re corded In the past 12 months, has l ack of transportation kept you from medical appointments or from getting medications? No 03/09 In the past 12 months, has l ack of transportation kept you from meetings, work, or from getting things needed for daily living? No 03/21/2025 Housing Stability Vital Sign Answer Surjit e [...] a senior care (including now)? No 07/27/2023 Housing Stability Vital Sign Answer Surjit e Recorded In the last 12 months, was t here a time when you were not able to pay the mortgage or rent on time? Yes 03/21/2025 In the past 12 months, how m any times have you moved where you were living? 0 03/21/2025 At any time in the [facility], were you homeless or living in a senior care (including now)? No 03/21/2025 IPV Inpatient Questions Answer Date Recorded Does Anyone Try to Keep You From Having Contact with Others or Doing Things Outside Your Home? no 07/18/2025 Feels Threatened by Someone no 07/2025 Feels Unsafe at Home or Work/School no 07/18/2025 Physical Signs of Abuse Present no 07/18/2025 Education Answer Date Recorded What is the [...] Orientation Straight 07/27/2023 9: 09 AM EDT Last Filed Vital Signs Vital Sign Reading Time Taken Comments Blood Pressure 147/88 07/25/2025 10:48 AM EDT Pulse 83 07/25/2025 10:48 AM EDT Temperature 36.5 C (97.7 F) 07/18/2025 11:20 AM EDT Respiratory Rate 16 07/18/2025 11:20 AM EDT Oxygen Saturation 100% 07/25/2025 10:48 AM EDT Inhaled Oxygen Concentration - - Weight 76.2 kg (168 lb) 08/01/2025 10:40 AM EDT Height 162.6 cm (5' 4 ) 08/01/2025 10:40 AM EDT Body Mass Index 28.84 08/01/2025 10:40 AM EDT Plan of Treatment Upcoming Encounters Date Type Department Care Team (Late st Contact Info) Description 01/17/2026 12:30 PM EDT Office Visit Cardiology at [address] [phone] Addison Cruz, AGUSTIN [address] [place] [address] [place] [address] 04/09/2026 9:25 AM EDT Office Visit Primary Care at [address] [phone] Farhana Carmona, [address] [place] [address] [place] [address] Health Maintenance Due Date Last Done Comments CT Colonography 1965 Colonoscopy 1965 Colorectal Cancer Screening 1965 FIT DNA 1965 FIT 1965 Sigmoidoscopy (10 year) with FIT yearly 1965 Sigmoidoscopy 1965 HIV screen 1983 Hepatitis C Screening 1983 Breast Cancer Share Decision Needed 2005 Pneumoccocal Vaccine: 50+ (1 of 1 - PCV) 2015 Advance Directive 02/04/2020 Covid-19 Vaccine (4 - 2024-2 6 season) 2025 11/14/2021, 03/20/2021, 02/27/2021 Influenza (Flu) vaccine (1 o f 1 - Influenza standard series) 07/10/2025 10/01/2024, 08/03/2023, 09/09/2022, Additional history exists HPV test 12/02/2025 12/02/2024, 11/20/2023 PAP Smear 12/02/2025 12/02/2024, 11/20/2023 Breast Cancer screening 12/02/2026 12/02/19, 06/15/2024, 11/20/2023 Diabetes Screening (HgbA1C o r Glucose) 07/21/2028 07/21/2025, 03/21/2025, 01/25/2025, Additional history exists Tetanus/Diphtheria/Pertussis Vaccines (3 - Td or Tdap) 02/09/2029 02/09/2019, 03/29/2009 Zoster vaccine Completed 06/16/2024, 12/23/2023 Lipid Screening Discontinued 01/16/2025, 12/10, 12/16/2023 Procedures Procedure Name Priority Date/Time Associated Diagnosis Comments HEMOGRAM Routine 08/29/2025 12:18 PM EDT Pancytopenia CBC (WITH DIFF) Routine 07/21/2025 12:34 PM EDT Positional lightheadedness BASIC METABOLIC PANEL Routine 07/21/2025 12:34 PM EDT Positional lightheadedness TSH CASCADE Routine 07/21/2025 12:34 PM EDT Positional lightheadedness MAGNESIUM Routine 07/21/2025 12:34 PM EDT Positional lightheadedness Endoscopic Wrist Surg Release Transverse Carpal Ligament (41447) 07/18/2025 11:00 AM EDT Carpal tunnel syndrome on left ARTHROSCOPY WRIST W/ RELEASE TRANSVERSE CARPAL LIGAMENT Routine 07/18/2025 10:08 AM EDT Carpal tunnel syndrome on left LIPID PANEL (REFLEX DIRECT LDL) Routine 01/16/2025 11:59 AM EDT Mixed hyperlipidemia HPV DNA, CERVICAL SCREEN Routine 12/02/2024 10:17 AM EST Cervical cancer screening ADRIAN exposure in utero CYTOLOGY HUNTING GUIDE (REQ ENTRY) Routine 12/02/2024 10:17 AM EST Cervical cancer screening ADRIAN exposure in utero MAMMO SCREENING CAD AND LUIS BILATERAL Routine 12/02/2024 8:35 AM EST Visit for screening mammogram from Last 3 Months or Most Recently Relevant to Health Maintenance Results * (ABNORMAL) Hemogram (08/29/2025 12:18 PM EDT) White Blood Cell 3.98(L) 4.00 - 9.50 x10(3)/mc L 08/29/2025 12:[address] [facility] Red Blood Cell 3.78(L) 4.00 - 5.21 x10(6)/mc L 08/29/2025 12:[address] [facility] Hemoglobin 11.5(L) 11.7 - 15.5 g/dL 08/29/2025 12:[address] [facility] Hematocrit 34.8(L) 35.7 - 45.8 % 08/29/2025 12:[address] [facility] Mean Cell Volume 92.1 82.6 - 94.4 fL 08/29/2025 12:[address] [facility] Mean Cell Hemoglobin 30.4 27.1 - 32.0 pg [facility]25 [facility] Mean Cell Hemoglobin Concentration 33.0 31.7 - 35.0 g/dL 08/29/2025 12:[facility] Platelet 161 145 - 357 x10(3)/mc L 08/29/2025 12:[address] [facility] Mean Platelet Volume 9.6 7.6 - 12.9 fL 08/29/2025 12:[address] [facility] RDW Standard Deviation 45.8 37.0 - 46.0 fL 08/29/2025 12:33 PM [facility] RDW coefficient of variation 13.4 11.5 - 14.1 % 08/29/2025 12:33 PM [facility] NRBC% auto 0.0 % 08/29/2025 12:33 PM [facility] NRBC Absolute <0.01 <0.01 x10(3)/mc L 08/29/2025 12:[facility] Blood VENOUS BLOOD SPECIMEN / Unknown Venipuncture / Unknown 08/29/2025 12:18 PM EDT 08/29/2025 12:22 PM EDT us Farhana Carmona DO HEMATOLOGY ORDERABLES Final Result [facility] [place] [address] * TSH Grand (07/21/2025 12:34 PM EDT) Thyroid Stimulating Hormone 2.16 0.27 - 4.20 mcIU/mL 07/21/2025 1:29 PM EDT [facility] Comment: Reference Interval (mcIU/mL): Females: First Trimester: 0.23-3.88 Second Trimester: 0.22-3.90 Third Trimester: 0.44-4.66 Blood VENOUS BLOOD SPECIMEN / Unknown Venipuncture / Unknown 07/21/2025 12:34 PM EDT 07/21/2025 12:34 PM EDT us Ankush Dejesus MD CHEMISTRY ORDERABLES Final Resu lt [facility] [address] [id number] * (ABNORMAL) CBC (with Diff) (07/21/2025 12:34 PM EDT) White Blood Cell 3.74(L) 4.00 - 9.50 x10(3)/mc L 07/21/2025 12:43 PM EDT [facility] Red Blood Cell 3.90(L) 4.00 - 5.21 x10(6)/mc L 07/21/2025 12:43 PM EDT [facility] Hemoglobin 11.6(L) 11.7 - 15.5 g/dL 07/21/2025 12:43 PM EDT [facility] Hematocrit 35.7 35.7 - 45.8 % 07/21/2025 12:43 PM EDT [facility] Mean Cell Volume 91.5 82.6 - 94.4 fL 07/21/2025 12:43 PM T [facility] Mean Cell Hemoglobin 29.7 27.1 - 32.0 pg 07/21/2025 12:43 PM EDT [facility] Mean Cell Hemoglobin Concentration 32.5 31.7 - 35.0 g/dL 07/21/2025 12:43 PM EDT [facility] Platelet 140(L) 145 - 357 x10(3)/mc L 07/21/2025 12:43 PM EDT [facility] Mean Platelet Volume 9.4 7.6 - 12.9 fL 07/21/2025 12:43 PM T [facility] RDW Standard Deviation 45.9 37.0 - 46.0 fL 07/21/2025 12:43 PM EDT [facility] RDW coefficient of variation 13.6 11.5 - 14.1 % 07/21/2025 12:43 PM EDT [facility] NRBC% auto 0.0 % 07/21/2025 12:43 PM EDT [facility] NRBC Absolute <0.01 <0.01 x10(3)/mc L 07/21/2025 12:43 PM EDT [facility] Neutrophil % 62.6 % 07/21/2025 12:43 PM EDT [facility] Neutrophil Absolute (ANC) - Automated 2.34 1.70 - 6.10 x10(3)/mc L 07/21/2025 12:43 PM EDT [facility] Lymph % 26.2 % 07/21/2025 12:43 PM EDT [facility] Lymph Absolute 0.98 0.90 - 3.20 x10(3)/mc L 07/21/2025 12:43 PM EDT [facility] Monocyte % 8.0 % 07/21/2025 12:43 PM EDT [facility] Monocyte Absolute 0.30 0.30 - 0.90 x10(3)/mc L 07/21/2025 12:43 PM EDT [facility] Eos % 2.4 % 07/21/2025 12:43 PM EDT [facility] Eos Absolute 0.09 0.00 - 0.40 x10(3)/mc L 07/21/2025 12:43 PM EDT [facility] Basophil % 0.5 % 07/21/2025 12:43 PM EDT [facility] Baso Absolute <0.04 0.00 - 0.10 x10(3)/mc L 07/21/2025 12:43 PM EDT [facility] Immature Gran % 0.3 % 12:43 PM EDT [facility] Immature Gran Absolute <0.04 0.00 - 0.04 x10(3)/mc L 07/21/2025 12:43 PM T [facility] Blood VENOUS BLOOD SPECIMEN / Unknown Venipuncture / Unknown 07/21/2025 12:34 PM EDT 07/21/2025 12:34 PM EDT us Ankush Dejesus MD HEMATOLOGY ORDERABLES Final Res ult Performing Organization Address City/[facility]/ZIP Co de Phone Number [facility] [address] [place] [address] * Magnesium (07/21/2025 12:34 PM EDT) Magnesium 0.82 0.69 - 1.07 mMol/L 07/21/2025 1:25 PM EDT [facility] Blood VENOUS BLOOD SPECIMEN / Unknown Venipuncture / Unknown 07/21/2025 12:34 PM EDT 07/21/2025 12:34 PM EDT us Ankush Dejesus MD CHEMISTRY ORDERABLES Final Resu lt Performing Organization Address [facility] Co de Phone Number [facility] [address] [place] [address] * Basic Metabolic Panel Non-fasting (07/21/2025 12:34 PM EDT) Glucose 95 65 - 199 mg/dL 07/21/2025 1:25 PM EDT [facility] Comment:Glucose Concentratio n >=200 mg/dL plus symptoms is consistent with Diabetes Mellitus. Blood Urea Nitrogen 10 8 - 18 mg/dL 07/21/2025 1:25 PM EDT [facility] Creatinine 0.79 0.70 - 1.20 mg/dL 07/21/2025 1:25 PM EDT [facility] Sodium 137 135 - 145 mMol/L 07/21/2025 1:25 PM EDT [facility] Potassium 4.4 3.5 - 5.0 mMol/L 07/21/2025 1:25 PM EDT [facility] Chloride 98 98 - 107 mMol/L 07/21/2025 1:25 PM EDT [facility] Carbon Dioxide 25 22 - 31 mMol/L 07/21/2025 1:25 PM EDT [facility] Anion Gap 14 5 - 15 mMol/L 07/21/2025 1:25 PM EDT [facility] Calcium 9.7 8.5 - 10.5 mg/dL 07/21/2025 1:25 PM EDT [facility] Est Glomerular Filtration Rate - Female 86 >=90 mL/min/1. 73 m 07/21/2025 1:25 PM EDT [facility] Comment: This patient's estimated GFR was calculated using the 2020 CKD-EPI equation. The estimated GFR can vary from the measured GFR by up to 30% in the absence of rapidly changing kidney function. Assessment of the estimated GFR is not appropriate when creatinine concentrations are rapidly changing. For clinical situations in which a more precise estimate of GFR is necessary, consider alternative methods of GFR estimation such as a 24-hour urine creatinine clearance. Assignment of CKD stage 1 - 5 for patients with an eGFR near the transition point between stages may be based on clinical assessment of muscle mass and symptoms in addition to eGFR. Link: eGFR Calculator [employer] Fasting Status No 07/21/2025 1:25 PM EDT [facility] Blood VENOUS BLOOD SPECIMEN / Unknown Venipuncture / Unknown 07/21/2025 12:34 PM EDT 07/21/2025 12:34 PM EDT us Ankush Dejesus MD CHEMISTRY ORDERABLES Final Resu lt [facility] [address] [place] [id number] * Lipid Panel (Reflex Direct LDL) (01/16/2025 11:59 AM EDT) Pathologist [facility] Cholesterol, Total 194 mg/dL 01/16/2025 1:22 PM EDT [facility] Comment: Desirable: < 200 mg/dL Borderline High: 200 - 239 mg/dL High: > or = 240 mg/dL Triglyceride 91 mg/dL 01/16/2025 1:22 PM EDT [facility] Comment: Normal: <150 mg/dL Borderline High: 150-199 mg/dL High: 200-499 mg/dL Very High: > or =500 mg/dL HDL Cholesterol 78 mg/dL 1:22 PM EDT [facility] Comment:Female: High Risk: < 50 mg/dL LDL Cholesterol 100 mg/dL 1:22 PM EDT [facility] Comment: Desirable: <100 mg/dL Above Desirable: 100-129 mg/dL Borderline High: 130-159 mg/dL High: 160-189 mg/dL Very High: > or =190 mg/dL Note: LDL calculation updated to the NIH LDL formula as of 06/12/2024 Non-HDL Cholesterol 116 mg/dL 01/16/2025 1:22 PM EDT [facility] Comment: Desirable: <130 mg/dL Above Desirable: 130-159 mg/dL Borderline High: 160-189 mg/dL High: 190-219 mg/dL Very High: > or = 220 mg/dL Blood VENOUS BLOOD SPECIMEN / Unknown Venipuncture / Unknown 01/16/2025 11:59 AM EDT 01/16/2025 11:59 AM EDT [facility]AT[facility] - 01/16/2025 1:22 PM EDT It is important to review the results of your lipid panel with your health care provider. You can compare your lipid results to the ranges below and whether they are in the desirable range. These ranges are only meant to be used for people without known cardiac disease, history of stroke, or peripheral vascular disease (blockages in the leg arteries or diabetes). If you have one of these conditions, your desirable LDL-C (bad cholesterol) will likely be even lower. ACC/AHA Guidelines (most recently Narendra et al. [facility] 08/12/22): * For individuals with atherosclerotic cardiovascular disease (ASCVD) or LDL >=190 mg/dL, use a high-intensity statin(40-80 mg atorvastatin or 20-40 mg rosuvastatin with goal >=50% LDL reduction) * For individuals with diabetes, age 40-75 without ASCVD, moderate-intensity statin (goal 30-49% LDL reduction); consider high intensity statin for those with increased risk. * For adults without diabetes or ASCVD, aged 40-75 with LDL 70-189 mg/dL, estimate 10 year ASCVD risk with smartphrase .ASCVDRISK or Dynamed Decisions. If 10 year risk is 7.5%-19.9% (intermediate risk), consider moderate intensity statin based on risk enhancers and patient preference. Consider coronary artery calcium test (CT)if there is concern regarding the benefit of a statin. If ten year risk is >=20%, initiate high-intensity statin. * Evaluate for secondary causes of Triglycerides >500 mg/dL or LDL >190 mg/dL. * Lifestyle modification is a critical component of ASCVD risk reduction. * If not reaching LDL goals on maximally tolerated statin, consider ezetimibe and/or a PCSK9 inhibitor: * Target for primary prevention: LDL<100 * Target for those with ASCVD or diabetes and 10-year risk >=20%: LDL<70 * Target for those with very high risk ASCVD: LDL<55 (Very high risk being the presence of 2 or more of: recent acute coronary syndrome, past myocardial infarction, ischemic stroke, symptomatic peripheral artery disease) us [facility] Tramaine Hunt MD CHEMISTRY ORDERABLES Final Resu lt [facility] [address] [place] [id number] * Cytology HUNTING GUIDE (12/02/2024 10:17 AM EST) Case Report Gynecologic Cytology Report Case: [id number] Authorizing Provider: Herlinda Cage DO Collected: 12/02/2024 1017 Ordering Location: Obstetrics and Gynecology Received: 12/02/2024 1224 at [facility] First Screen: Lucina Frias CT(ASCP) Rescreen: Kimberly Rose CT(ASCP) Specimen: Screening Pap Test, Cervix/Endocervix 5 3:05 PM [facility] Specimen Source ThinPrep Screening Pap Test, Cervix/Endocervix 5 3:05 PM [facility] Interpretation Negative for intraepithelial lesion or malignancy 5 3:05 PM [facility] at 1505 EST Other Findings Atrophic pattern sample 3:05 PM [facility] Specimen Adequacy Specimen submitted is satisfactory for evaluation. Endocervical/transf ormation zone component present. 5 3:05 PM [facility] Clinical Information LMP: Menstrual Status: Postmenopausal HPV Vaccination (Completed): Unknown HPV testing: Concurrent Chlamydia/Gonorrhea from the same vial? No Prior HUNTING GUIDE/Pelvic Treatments: No HUNTING GUIDE/Pelvic Other Comment: History of abnormal Pap or cervical biopsy? No Screening/Diagnosti c? Screening Additional comments or high risk factor(s): pt is a ADRIAN daughter. pap collected circumferentially around cervix in vaginal fornices as well as from cervix/endocervix. 3:05 PM [facility] Disclaimer(s) This Pap test has been evaluated with the assistance of the ThinPrep Pap Test Imaging System. The Pap test is a screening test for cervical cancer with an inherent false-negative rate dependent upon several variables. For further information please contact the [facility]. Reference: Ladarius FARLEY. Tentmaker of Pap Smear Results. In: Micaela BS, Andrey HH, ed. The Pap Smear. [place]: Jun, 2002: 71-77. For consensus guidelines for the management of cervical cancer screening test results, please see: https://www.asccp.o rg. 3:05 PM [facility] Pap ENDOCERVICAL STRUCTURE / Unknown Non Blood Collection / Unknown 12/02/2024 10:17 AM EST 12/02/2024 12:24 PM EST us Herlinda Cage DO PATHOLOGY/CYTOLOGY ORDERABL ES Final Result [facility] [place] [address] * HPV DNA, Cervical Screen (12/02/2024 10:17 AM EST) HPV DNA Specimen Source 12/14/2024 3:05 PM EST [facility] HPV16 Not Detected Not Detected, Invalid, Rejected 12/14/2024 3:05 PM EST [facility] HPV18 Not Detected Not Detected, Invalid, Rejected 12/14/2024 3:05 PM EST [facility] HPV types other than 16 or 18 Not Detected Not Detected, Invalid, Rejected 12/14/2024 3:05 PM EST [facility] HPV Interpretation 12/14/2024 3:05 PM EST [facility] Comment: NEGATIVE for high-risk HPV. DNA from the high risk HPV types listed below is not detected in the specimen. Patients should be followed-up in accordance with professional medical guidelines, results from prior screening, medical history, and other risk factors. Pap ENDOCERVICAL STRUCTURE / Unknown Non Blood Collection / Unknown 12/02/2024 10:17 AM EST 12/02/2024 12:24 PM EST Narrative [facility] - 12/14/2024 3:05 PM EST Method: Antoinette TIMOTHY 6800 HPV test (FDA-approved for clinical use) High risk HPV types tested: 16, 18, 31, 33, 35, 39, 45, 51, 52, 56, 58, 59, 66, and 68. This test is not able to detect low risk HPV types. This test is FDA-approved for cervical cancer screening using cervical specimens collected by a clinician in ThinPrep Pap Test PreservCyt Solution. Other uses or specimen types are not validated/recommended. us Herlinda Cage DO MOLECULAR ORDERABLES Final Result [facility] [place] [address] * Mammo Screening Cad and Luis Bilateral (12/02/2024 8:35 AM EST) Anatomical Region Laterality Modality Breast Bilateral Mammography Impressions 12/02/2024 9:41 AM EST : No mammographic evidence of malignancy. RECOMMENDATION: Regular screening mammograms starting at age 40 reduce the risk of from breast cancer. Individuals should discuss the risks and benefits with their provider to determine their preferred breast cancer screening schedule, and at what age screening should stop. Individuals should report any breast changes to a health care provider right away. Some individuals, because of their family history, a genetic tendency, or other factors, should consider being screened with annual breast MRI as well as with mammograms. Screening mammography may not detect 10-15% of breast cancers. A result letter has been sent to this patient by the [facility]. BI-RADS Category 1: Negative [[id number]] Electronically signed by: MANNY LOPEZ MD [facility] at [address] [phone] Your breast imaging exam done on: 12/02/24 Narrative 12/02/2024 9:41 AM EST BILATERAL MAMMOGRAPHY REASON FOR EXAM: Screening TECHNIQUE: CC and MLO views were obtained of each breast using standard 2-D mammography as well as 3-D tomosynthesis. Computer aided detection was used. This is compared with prior images. BREAST DENSITY: The breasts are extremely dense, which lowers the sensitivity of mammography. FINDINGS: There are no suspicious microcalcifications, masses, or areas of distortion. The pattern is stable. 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
--- OUTSIDE RECORDS SUMMARY | 2025-09-19 15:50 | XMS_ITS | Encounter Summary ---
Author Organization [facility] Address [facility] [place] [address] Care Team Providers Care Supervisor Files Name Role Phone Farhana Carmona DO Primary Care Provider Encounter Details Date Type Department Care Team ([facility] st Contact Info) Description 08/31/2025 Results Follow-Up Primary Care at [address] [phone] Farhana Carmona DO [address] [place] [address] Hemogram Social History Tobacco Use Types Packs/Day Years Used Date Smoking Tobacco: Never Passive Smoke Exposure: Past Smokeless Tobacco: Never Alcohol Use Standard Drinks/Week Comments Yes 3 (1 standard drink = 0.6 oz pur e alcohol) 3-4/week B1300 Health Literacy Answer Date Recor ded How often do you need to hav e someone help you when you read instructions, pamphlets, or other written material from your doctor or pharmacy? Never 03/21/2025 [facility] Utilities Answer Date Recorded In the past 12 months has th e electric, gas, oil, or water company threatened to [...] place to sleep or slept in a mcfp (including now)? No 07/27/2023 Housing Stability Vital Sign Answer Surjit e Recorded In the last 12 months, was t here a time when you were not able to pay the mortgage or rent on time? Yes 03/21/2025 In the past 12 months, how m any times have you moved where you were living? 0 03/21/2025 At any time in the past 12 m [facility], were you homeless or living in a mcfp (including now)? No 03/21/2025 [facility] IPV Inpatient Questions Answer Date Recorded Does [...] Upcoming Encounters Date Type Department Care Team ([facility] st Contact Info) Description 01/17/2026 12:30 PM EDT Office Visit Cardiology at [address] [phone] Addison Cruz PA [address] [place] [address] [place] [address] 04/09/2026 9:25 AM EDT Office Visit Primary Care at [address] [address] Farhana Carmona DO [address] [place] [address] documented as of this encounter Visit Diagnoses Not on filedocumented in this encounter Care Teams Supervisor Files Relationship Specialty Start Date End Date Farhana Carmona DO [address] [place] [address] [phone] PCP - General Family Medicine 05/05/23 documented as of this encounter
--- OUTSIDE RECORDS SUMMARY | 2025-09-19 15:50 | XMS_ITS | Encounter Summary ---
Author Organization [facility] Address [facility] [place] [address] Care Team Providers Care Stitch Bonder Machine Operator Helper Name Role Phone Farhana Carmona DO Primary Care Provider Reason for Visit * Reason Onset Date Comments Medication Refill 10/24/2023 Encounter Details Date Type Department Care Team ([facility] st Contact Info) Description 10/24/2023 Refill Primary Care at [address] [phone] Farhana Carmona DO [address] [place] [address] Asthma, unspecified asthma severity, unspecified whether complicated, unspecified whether persistent Social History Tobacco Use Types Packs/Day Years Used Date Smoking Tobacco: Never Assessed Overall Financial Resource Strain (CARDIA) Answe r [...] place to sleep or slept in a fci (including now)? No 07/27/2023 Education Answer Date Recorded What is the highest level of school you have completed or the highest degree you have received? Bachelor's degree (e.g., BA, AB, BS) 07/27/2023 Comments Unknown Sex and Gender Information Value Date Recorded [...] 12:30 PM EDT Office Visit Cardiology at [address] [address] Addison Cruz, AGUSTIN [address] [place] [address] [place] [address] 04/09/2026 9:25 AM EDT Office Visit Primary Care at [address] [phone] Farhana Carmona, [address] [place] [address] documented as of this encounter Visit Diagnoses Diagnosis Asthma, unspecified asthma severity, unspecified whether complicated, unspecified whether persistent documented in this encounter Care Teams Stitch Bonder Machine Operator Helper Relationship Specialty Start Date End Date Farhana Carmona DO [address] [place] [address] PCP - General Family Medicine 05/05/23 documented as of this encounter
--- OUTSIDE RECORDS SUMMARY | 2025-09-19 15:50 | XMS_ITS | Encounter Summary ---
Author Organization [facility] Address [facility] [place] [address] Care Team Providers Care Account Support Associate Name Role Phone Farhana Carmona DO Primary Care Provider Reason for Visit * Reason Comments Medication Refill Encounter Details Date Type Department Care Team ([facility] st Contact Info) Description 03/29/2024 Refill Primary Care at [address] [phone] Farhana Carmona DO [address] [place] [address] Sensory neuropathy Social History Tobacco Use [...] place to sleep or slept in a group home (including now)? No 07/27/2023 Education Answer Date [...] 12:30 PM EDT Office Visit Cardiology at [address] [address] Addison Cruz PA [address] [place] [address] CARDIOLOGY [place], [place] [id number] 04/09/2026 9:25 AM EDT Office Visit Primary Care at [address] [phone] Farhana Carmona DO [facility] [place] [address] documented as of this encounter Visit Diagnoses Diagnosis Sensory neuropathy Unspecified hereditary and idiopathic peripheral neuropathy documented in this encounter Care Teams Account Support Associate Relationship Specialty Start Date End Date Farhana Carmona DO [address] [place] [address] PCP - General Family Medicine 05/05/23 documented as of this encounter
--- OUTSIDE RECORDS SUMMARY | 2025-09-19 15:50 | XMS_ITS | Encounter Summary ---
Author Organization [facility] [place] [address] Care Team Providers Care Delivery Man Name Role Phone Kristine Farhana Aleah WHITEHEAD Primary Care Provider Encounter Details Date Type Department Care Team (Latest Contact Info) Description 09/19/2025 Specialty [place] [address] aTe Strong, WATER TAXI CAPTAIN Refill Coordination - 28 day recurrence - tocilizumab (Actemra ACTPen) for Rheumatology Social History Tobacco Use Types Packs/Day Years [...] from your doctor or pharmacy? Never 03/21/2025 [facility] Utilities Answer Date Recorded In the past 12 months has e [employer], gas, oil, or water company threatened to [...] any time in the past 12 m [facility], were you homeless or living in [...] AM EDT documented as of this encounter Progress Notes * Nhi De La Fuente CPHT - 09/19/2025 7:15 AM EST [facility], Medication Refill Specialty Pharmacy Consultation; Nhi De La Fuente CPHT Comprehensive Medication Management (CMM) Ms. Jenny Dan is a 60 y.o. (1965) female who was contacted in regard to a specialty medication refill reminder. The patient requested a refill of tocilizumab (Actemra ACTPen). A review ofthe medication therapy was performed. The medication was refilled as scheduled, and all medication related questions and concerns were addressed. The specialty pharmacy staff will follow up with the patient 5-7 days prior to next refill. Was a change made to the Care Plan: No Medication Therapy Recommendations No medication therapy recommendations to display Allergies and Drug intolerance: Allergies[1] Medication Reconciliation Discrepancies (compared to [facility] med list) No Review Flowsheet 09/19/2025 9:49 AM Assessment What is the name of the specialty medication you are refilling? Actemera Are you taking any new medications? No Are there any changes to how you are taking this medication? No Any new medical conditions? No Any new allergies? No Any new side effects that are bothersome? No Any missed doses since your last fill? 0 How many doses do you have remaining on hand? 0 Would you like a pharmacist to reach out to you to answer any questions? No What date will you need this fill by? 09/28/2025 Adherence: Any missed doses? No Patient understands no changes to current drug regimen were made. Nhi De La Fuente CPHT 09/19/25 10:18 AM [1] No Known Allergies documented in this encounter Plan of Treatment Upcoming Encounters Date Type Department Care Team (Late st Contact Info) Description 01/17/2026 12:30 PM EDT Office Visit Cardiology at [address] [address] Addison Cruz PA [address] [place] [address] [place] [address] 04/09/2026 9:25 AM EDT Office Visit Primary Care at [address] [phone] Farhana Carmona DO [address] [place] [address] documented as of this encounter Visit Diagnoses Not on filedocumented in this encounter Care Teams Delivery Man Relationship Specialty Start Date End Date Farhana Carmona DO [address] [place] [phone] PCP - General Family Medicine 05/05/23 documented as of this encounter
--- OUTSIDE RECORDS SUMMARY | 2025-09-19 15:50 | XMS_ITS | Encounter Summary ---
Author Organization [facility] [place] [address] Care Team Providers Care Supervisor Marble Name Role Phone Farhana Carmona DO Primary Care Provider Encounter Details Date Type Department Care Team (Latest Contact Info) Description 11/04/2024 Specialty [place] [address] Nhi De La Fuente, WOOL DYER Prior Authorization - tocilizumab (Actemra ACTPen) for Rheumatology Social History Tobacco Use Types Packs/Day Years Used Date Smoking Tobacco: Never Smokeless Tobacco: Never Alcohol Use Standard Drinks/Week Comments Yes 4 (1 standard drink = 0.6 oz pur e alcohol) 4-5/week B1300 Health Literacy Answer Date Recor ded How often do you need to hav e someone help you when you read instructions, pamphlets, or other written material from your doctor or pharmacy? Never 03/21/2025 [facility] Utilities Answer Date Recorded In the past 12 months has e [employer], gas, oil, or water company threatened to [...] place to sleep or slept in a usp (including now)? No 07/27/2023 Housing Stability Vital [...] time in the past 12 m [facility], were you homeless or living in a usp (including now)? No 03/21/2025 [facility] IPV Inpatient [...] * Nhi De La Fuente CPHT - 11/04/2024 11:52 AM EST [facility], Medication Prior Authorization Patient: Jenny Dan : 1965 11/04/2024 11:53 AM PA Submission Reason for Prior Authorization Reauthorization with Insurance Does [facility] complete PA for this office? Yes Office notified N/A Medication Tocilizumab Dispense Quantity 1.8 Dispense Units mL Day Supply 28 Insurance Phone Information sent via [facility] Case/Melara Number Melara: [id number] For any questions relating to this prior authorization please reach out directly to your section's specialty pharmacist, or the specialty pharmacy team at [facility] Nhi De La Fuente CPHT 11/04/24 11:53 AM * Nhi De La Fuente CPHT - 11/04/2024 11:52 AM EST D Specialty Pharmacy, Medication Prior Authorization Patient: Jenny Dan : 1965 11/04/2024 11:55 AM PA Approval Approval Start Date 11/04/2024 Approval End Date 11/04/2025 Case/Melara Number [id number] Can patient fill with [facility]? Yes Is this a conversion opportunity? No Expected Copay $0.00 Referral for copay assistance will be completed No Patient Notified Yes Notification Method Left voicemail For any questions relating to this prior authorization please reach out directly to your section's specialty pharmacist, or the specialty pharmacy team at [facility] Nhi De La Fuente CPHT 11/04/24 11:56 AM documented in this encounter Plan of Treatment Upcoming Encounters Date Type Department Care Team (Late st Contact Info) Description 01/17/2026 12:30 PM EDT Office Visit Cardiology at [address] [phone] Addison Cruz PA [address] [place] [address] [place] [address] 04/09/2026 9:25 AM EDT Office Visit Primary Care at [address] [phone] Farhana Carmona DO [address] [place] [address] documented as of this encounter Visit Diagnoses Not on filedocumented in this encounter Care Teams Supervisor Marble Relationship Specialty Start Date End Date Farhana Carmona DO [address] [place] [address] [phone] PCP - General Family Medicine 05/05/23 documented as of this encounter
--- OUTSIDE RECORDS SUMMARY | 2025-09-19 15:50 | XMS_ITS | Encounter Summary ---
Author Organization [facility] Address [facility] [place] [address] Care Team Providers Care Basin Cleaner Name Role Phone Farhana Carmona DO Primary Care Provider Encounter Details Date Type Department Care Team ([facility] st Contact Info) Description 07/24/2025 Results Follow-Up Cardiology at [address] [phone] Addison Cruz PA [address] [place] [address] [place] [address] Magnesium, TSH [place], Basic Metabolic Panel Non-fasting, CBC (with Diff) Social History Tobacco Use Types Packs/Day Years [...] from your doctor or pharmacy? Never 03/21/2025 [facility] Utilities Answer Date Recorded In the past [...] place to sleep or slept in a long-term (including now)? No 07/27/2023 Housing Stability Vital Sign Answer Surjit e Recorded In the last 12 months, was t here a time when you were not able to pay the mortgage or rent on time? Yes 03/21/2025 In the past 12 months, how m any times have you moved where you were living? 0 03/21/2025 At any time in the past 12 m [facility], were you homeless or living in a long-term (including now)? No 03/21/2025 IPV Inpatient Questions [...] 12:30 PM EDT Office Visit Cardiology at [address] [phone] Addison Cruz PA [address] [place] [address] [place] [address] 04/09/2026 9:25 AM EDT Office Visit Primary Care at [address] [phone] Farhana Carmona DO [address] [place] [address] [place] [address] documented as of this encounter Results * (ABNORMAL) Hemogram (08/29/2025 12:18 PM EDT) [facility] Signature White Blood Cell 3.98(L) 4.00 - 9.50 x10(3)/mc L 08/29/2025 12:33 PM EDT [facility] Red Blood Cell 3.78(L) 4.00 - 5.21 x10(6)/mc L 08/29/2025 12:33 PM EDT [facility] Hemoglobin 11.5(L) 11.7 - 15.5 g/dL 08/29/2025 12:33 PM EDT [facility] Hematocrit 34.8(L) 35.7 - 45.8 % 08/29/2025 12:33 PM EDT [facility] Mean Cell Volume 92.1 82.6 - 94.4 fL 08/29/2025 12:33 PM EDT [facility] Mean Cell Hemoglobin 30.4 27.1 - 32.0 pg 08/29/2025 12:33 PM EDT [facility] Mean Cell Hemoglobin Concentration 33.0 31.7 - 35.0 g/dL 08/29/2025 12:33 PM EDT [facility] Platelet 161 145 - 357 x10(3)/mc L 08/29/2025 12:33 PM EDT [facility] Mean Platelet Volume 9.6 7.6 - 12.9 fL 08/29/2025 12:33 PM T [facility] RDW Standard Deviation 45.8 37.0 - 46.0 fL 08/29/2025 12:33 PM T [facility] RDW coefficient of variation 13.4 11.5 - 14.1 % 08/29/2025 12:33 PM [facility] NRBC% auto 0.0 % 08/29/2025 12:33 PM [facility] NRBC Absolute <0.01 <0.01 x10(3)/mc L 08/29/2025 12:33 PM [facility] Blood VENOUS BLOOD SPECIMEN / Unknown Venipuncture / Unknown 08/29/2025 12:18 PM EDT 08/29/2025 12:22 PM EDT us Farhana Carmona DO HEMATOLOGY ORDERABLES Final Result [facility] [place] [address] documented in this encounter Visit Diagnoses Diagnosis Pancytopenia Other pancytopenia documented in this encounter Care Teams Basin Cleaner Relationship Specialty Start Date End Date Farhana Carmona DO [address] [place] [id number] PCP - General Family Medicine 05/05/23 documented as of this encounter
== END 2025-09-19 14:42 | disposition home or self-care (01) ==
LOC: HO.HPS 14:09
PROVIDERS: PCP Family Medicine; Visit Provider Hospitalist
DX: R06.09 Other forms of dyspnea (principal); M06.09 Rheumatoid arthritis without rheumatoid factor, multiple sites; J45.40 Moderate persistent asthma, uncomplicated; D80.1 Nonfamilial hypogammaglobulinemia; R91.8 Other nonspecific abnormal finding of lung field
CPT/HCPCS: 99214; G2211

== ENCOUNTER → 2025-09-19 14:08 | Outpatient (BNVA) | payer BC, MEDICARE, SELFPAY | PROVIDERS: PCP Family Medicine; Visit Provider Hospitalist | DX: J45.40 Moderate persistent asthma, uncomplicated (principal); Z23 Encounter for immunization; R00.0 Tachycardia, unspecified; D80.1 Nonfamilial hypogammaglobulinemia; R06.09 Other forms of dyspnea; M06.09 Rheumatoid arthritis without rheumatoid factor, multiple sites; R91.8 Other nonspecific abnormal finding of lung field | CPT/HCPCS: 90471; 90656; 99212 ==